=== PATIENT | male | born 1970 | race Caucasian/White ===

== ENCOUNTER 2018-09-08 11:22 | Emergency (ER) | payer MEDICAID ==
[~2018-09-08] VITALS: Ht 177.8 cm; Wt 126.6 kg
[~2018-09-08 11:22] MED LIST: COUMADIN5 MG PO; DEPAKOTE500 MG PO; HYDROCHLOROTHIA25 MG PO; IMDUR30 MG; KEPPRA1000 MG PO; LIPITOR20 MG PO; METOPROLOL SUCC50 MG PO; SYMBICORT 16010.2 GM
--- OUTSIDE RECORDS SUMMARY | 2018-09-08 11:25 | XMS REPORT | Clinical Summary ---
Author Author KASIA [facility]SpotsSh[facility] CenterHartman [facility] Address Unknown Phone Unavailable Care Team Providers Care Braid Maker Name Role Phone Sharpless PCP Allergies Comments Active Allergy Reactions Severity Noted Date Phenytoin Sodium Extended Rash Low 04/26/2014 Iodine And Iodide Hives, 04/26/2014 Containing Products Swelling Carbamazepine Rash Low 04/26/2014 Ondansetron Hcl (Pf) Hives 04/26/2014 Medications End Date Status Medication Sig Dispensed Refills Start Date Active levETIRAcetam (KEPPRA) Take 500 mg 0 500 MG tablet by mouth 3 (three) times daily. Active divalproex (DEPAKOTE) 500 Take 500 mg 0 MG EC tablet by mouth 2 (two) times daily. Active aspirin 325 MG tablet Take 325 mg 0 by mouth daily. Active atorvastatin (LIPITOR) 20 Take 20 mg by 0 MG tablet mouth daily. Active isosorbide mononitrate Take 30 mg by 0 (IMDUR) 30 MG 24 hr mouth daily. tablet Active promethazine (PHENERGAN) Take 25 mg by 0 25 MG tablet mouth every 8 (eight) hours as needed for Nausea. Active zolpidem (AMBIEN) 5 MG Take 5 mg by 0 tablet mouth every night as needed for Insomnia. Active nitroglycerin (NITROSTAT) Place 0.4 mg 0 0.4 MG SL tablet under the tongue every 5 (five) minutes as needed for Chest pain. Active rivaroxaban (XARELTO) 20 Take 1 tablet 30 tablet 0 05/02/201 mg Tab tablet (20 mg total) 4 by mouth daily with dinner. Active Problems Problem Noted Date Acute chest pain 06/18/2014 Cocaine use 06/18/2014 CAD (coronary artery disease) 04/27/2014 A-fib 04/27/2014 Hypertension 04/27/2014 COPD (chronic obstructive pulmonary disease) 04/27/2014 Encounters Care Team Description Date Type Specialty Ponce Sepulveda MD Gadicherla, Sonal Muralinath, MD Zindani, Shireen, MD Acute chest pain (Primary Dx); Coronary artery disease involving table mountain heart with angina pectoris, unspecified vessel or lesion type (HCC); Noncompliance; Atrial fibrillation, unspecified type (HCC); Subtherapeutic anticoagulation; Cigarette nicotine dependence with nicotine-induced disorder 04/05/2018 Emergency Cardiology - 04/06/2018 04/05/2018 Orders Only General Internal Medicine after 09/07/2017 Social History Date Tobacco Use Types Packs/Day Years Used Current Every Day Smoker 0.5 25 Smokeless Tobacco: Never Used Alcohol Use Drinks/Week oz/Week Comments No Sex Assigned at Date Recorded Not on file Industry Job Start Date Occupation Not on file Not on file Not on file Travel End Travel History Travel Start No recent travel history available. Last Filed Vital Signs Time Taken Vital Sign Reading 04/06/2018 4:09 AM CDT Blood Pressure 131/77 04/06/2018 4:09 AM CDT Pulse 60 04/06/2018 4:09 AM CDT Temperature 36.7 C (98 F) 04/06/2018 4:09 AM CDT Respiratory Rate 18 04/06/2018 4:09 AM CDT Oxygen Saturation 99% - Inhaled Oxygen - Concentration 04/06/2018 6:09 AM CDT Weight 123.5 kg (272 lb 3.2 oz) 04/05/2018 6:53 PM CDT Height 180.3 cm (5' 11") 04/06/2018 6:09 AM CDT Body Mass Index 37.96 Plan of Treatment Not on file Procedures Comments Procedure Name Priority Date/Time Associated Diagnosis RHYTHM STRIP - SCAN 04/07/2018 8:11 AM CDT ED ECG INTERPRETATION Routine 04/06/2018 8:14 AM CDT CBC W/PLT COUNT & AUTO Routine 04/06/2018 DIFFERENTIAL 2:11 AM CDT CBC W/PLT COUNT & AUTO Routine 04/06/2018 DIFFERENTIAL 2:11 AM CDT PHOSPHORUS Routine 04/06/2018 2:11 AM CDT MAGNESIUM Routine 04/06/2018 2:11 AM CDT BASIC METABOLIC PANEL (7) Routine 04/06/2018 2:11 AM CDT TROPONIN I Routine 04/06/2018 2:11 AM CDT TROPONIN I Routine 04/05/2018 8:03 PM CDT VENOUS DOPPLER LEGS Routine 04/05/2018 BILATERAL 6:30 PM CDT RAPID DRUG SCREEN, URINE Routine 04/05/2018 3:59 PM CDT URINALYSIS W/ MICROSCOPIC Routine 04/05/2018 3:59 PM CDT CBC W/PLT COUNT & AUTO STAT 04/05/2018 DIFFERENTIAL 1:50 PM CDT PROTHROMBIN TIME/INR STAT 04/05/2018 1:50 PM CDT D-DIMER STAT 04/05/2018 1:50 PM CDT CREATINE KINASE (CK), STAT 04/05/2018 TOTAL AND MB 1:50 PM CDT TROPONIN I STAT 04/05/2018 1:50 PM CDT CBC W/PLT COUNT & AUTO STAT 04/05/2018 DIFFERENTIAL 1:50 PM CDT BASIC METABOLIC PANEL (7) STAT 04/05/2018 1:50 PM CDT XR CHEST 1 VIEW STAT 04/05/2018 PORTABLE/BEDSIDE 1:30 PM CDT ECG 12-LEAD STAT 04/05/2018 1:03 PM CDT after 09/07/2017 Results * RHYTHM STRIP - SCAN (04/07/2018 8:11 AM CDT) Narrative Performed At * ED ECG Interpretation (04/06/2018 8:14 AM CDT) Narrative Performed At Ponce Sepulveda MD 04/06/20188:14 AM ECG/EKG Interpretation Date/Time: 04/05/2018 4:04 PM Performed by: PONCE SEPULVEDA Authorized by: MARLEN HANNA The ECG was interpreted by ED physician. The ECG is interpreted as sinus rhythm. Heart rate is 69 BPM. Patient tolerance: Patient tolerated the procedure well with no immediate complications Comments: SINUS RHYTHM ON MONITOR * CBC with platelet count + automated diff (04/06/2018 2:11 AM CDT) Only the most recent of 2 results within the time period is included. WBC 3.9 3.5 - 10.5 K/L [facility] RBC 4.83 4.63 - 6.08 M/L [facility] Hemoglobin 15.8 13.7 - 17.5 GM/DL [facility] Hematocrit 45.7 40.1 - 51.0 % [facility] MCV 94.6 (H) 79.0 - 92.2 fL [facility] MCH 32.7 (H) 25.7 - 32.2 pg [facility] MCHC 34.6 32.3 - 36.5 GM/DL [facility] RDW 13.1 11.6 - 14.4 % [facility] Platelets 153 150 - 450 K/CU MM [facility] MPV 9.9 9.4 - 12.4 fL [facility] nRBC 0 0 - 0 /100 WBC [facility] % Neutros 51 % [facility] % Lymphs 37 % [facility] % Monos 8 % [facility] % Eos 3 % [facility] % Baso 1 % [facility] # Neutros 1.98 1.78 - 5.38 K/L [facility] # Lymphs 1.46 1.32 - 3.57 K/L [facility] # Monos 0.33 0.30 - 0.82 K/L [facility] # Eos 0.11 0.04 - 0.54 K/L [facility] # Baso 0.02 0.01 - 0.08 K/L [facility] Immature 1 0 - 1 % [facility] Granulocytes-Relative [facility] Specimen Blood Performing Organization Address City/[facility] Cent[facility]ode Phone Number [address] [address] [facility] * Troponin I (04/06/2018 2:11 AM CDT) Only the most recent of 3 results within the time period is included. Troponin I <0.01 0.00 - 0.03 ng/mL [facility] Specimen Blood Narrative Performed At Troponin I (TnI) levels must be interpreted in the context of the presenting [facility] symptoms and the clinical findings. Elevated TnI levels indicate myocardial [facility] damage, but are not specific for ischemic heart disease. Elevated TnI levels are seen in patients with other cardiac conditions (including myocarditis and congestive heart failure), and slight TnI elevations occur in patients with other conditions, including sepsis, renal failure, acidosis, acute neurological disease, and persistent tachyarrhythmia. Performing Organization Address City/[facility] Cent[facility]ode Phone Number [address] [address] [facility] * Phosphorus (04/06/2018 2:11 AM CDT) Phosphorus 4.4 2.3 - 4.7 mg/dL [facility] Specimen Blood Performing Organization Address City/[facility] Cent[facility]ode Phone Number [address] [address] [facility] * Magnesium (04/06/2018 2:11 AM CDT) Magnesium 1.9 1.6 - 2.6 mg/dL [facility] Specimen Blood Performing Organization Address City/State/Zipcode Phone Number [facility] [address] [place], [place] [phone] [facility] * Basic metabolic panel (04/06/2018 2:11 AM CDT) Only the most recent of 2 results within the time period is included. Sodium 138 136 - 145 meq/L [facility] Potassium 4.2 3.5 - 5.1 meq/L [facility] Chloride 107 98 - 107 meq/L [facility] CO2 23 22 - 29 meq/L [facility] BUN 10 7 - 21 mg/dL [facility] Creatinine 0.87 0.57 - 1.25 mg/dL [facility] Glucose 98 70 - 105 mg/dL [facility] Calcium 9.2 8.4 - 10.2 mg/dL [facility] EGFR 93Comment: ESTIMATED GFR IS mL/min/1.73 sq m [facility] NOT ACCURATE CREATININE [facility] CLEARANCE IN PREDICTING GLOMERULAR FILTRATION RATE. ESTIMATED GFR IS NOT APPLICABLE FOR DIALYSIS PATIENTS. Specimen Blood Performing Organization Address City/[facility]/Zipcode Phone Number [facility] [address] [place] [address] [facility] * Venous doppler legs bilateral (04/05/2018 6:30 PM CDT) Ejection Fraction [facility] MKCKESSON CPACS Impressions Performed At Right Impression [facility] 1. There is no deep venous obstruction in the common femoral, profunda MKCKESSON CP[facility] femoral, femoral, popliteal, posterior tibial or peroneal veins. 2. There is no superficial venous obstruction in the great saphenous vein. Left Impression 1. There is no deep venous obstruction in the common femoral, profunda femoral, femoral, popliteal, posterior tibial or peroneal veins. 2. There is no superficial venous obstruction in the great saphenous vein. Conclusions Summary Venous duplex imaging and compression of the bilateral lower extremities were performed. The veins were adequately visualized. The bilateral venous systems were patent and compressible with no evidence of thrombus. The venous Doppler waveforms were phasic with respiration . Signature Velocities are measured in cm/s ; Diameters are measured in cm Narrative Performed At [facility] - Lower Extremities DVT Study [facility] Demographics [facility] Patient NameNARINDER SANCHEZDate of Study04/05/2018 Visit [id number] Male of Birth1970 Referring Micheline M Room [id number] Physician [place] Water Quality Tester Justin Cortez Interpreting Shaggy Pierce MD T Physician Procedure Type of Study: Veins: Lower Extremities DVT Study, VENOUS DOPPLER LEG, BILATERAL. Indications for Study:Chest pain . Patient Status:Routine. Study Location:Portable. Technical Quality:Adequate visualization. Risk Factors History of Disease + + + + !Diagnosis !Date !Comments ! + + + + !Stroke! ! ! + + + + !CHF ! ! ! + + + + !CHF ! ! ! + + + + !Other ! !Obesity! + + + + Procedure Note Interface, External Ris In - 04/07/2018 11:53 AM CDT [facility] - Lower Extremities DVT Study Demographics Patient Name NARINDER SANCHEZ Date of Study 04/05/2018 Age 48 Visit Number [id number] Gender Male Accession Number [id number] Date of 1970 Referring Micheline Zhou Room Number [id number] Physician [place] Water Quality Tester Justin Pierce MD RVT Physician Procedure Type of Study: Veins: Lower Extremities DVT Study, VENOUS DOPPLER LEG, BILATERAL. Indications for Study:Chest pain . Patient Status:Routine. Study Location:Portable. Technical Quality:Adequate visualization. Risk Factors History of Disease + + + + !Diagnosis !Date !Comments ! + + + + !Stroke ! ! ! + + + + !CHF ! ! ! + + + + !CHF ! ! ! + + + + !Other ! !Obesity ! + + + + Impressions Right Impression 1. There is no deep venous obstruction in the common femoral, profunda femoral, femoral, popliteal, posterior tibial or peroneal veins. 2. There is no superficial venous obstruction in the great saphenous vein. Left Impression 1. There is no deep venous obstruction in the common femoral, profunda femoral, femoral, popliteal, posterior tibial or peroneal veins. 2. There is no superficial venous obstruction in the great saphenous vein. Conclusions Summary Venous duplex imaging and compression of the bilateral lower extremities were performed. The veins were adequately visualized. The bilateral venous systems were patent and compressible with no evidence of thrombus. The venous Doppler waveforms were phasic with respiration . Signature Velocities are measured in cm/s ; Diameters are measured in cm Performing Organization Address City/State/Zipcode Phone Number [facility] * Rapid drug screen, urine (04/05/2018 3:59 PM CDT) Barbiturate Screen Negative Negative [facility] Benzodiazepine Screen Negative Negative [facility] Cocaine (Metab.) Screen Negative Negative [facility] Methadone Screen Negative Negative [facility] Opiate Screen Positive (A) Negative [facility] Cannabinoid Screen Positive (A) Negative [facility] Amph/Methamph Screen Negative Negative [facility] Phencyclidine Screen Negative Negative [facility] Oxycodone Screen Negative Negative [facility] Specimen Urine - Urine, Clean Catch Narrative Performed At [facility] Cocaine 300 ng/mL [facility] Kxtfbuzxbze07 ng/mL Iphlkcrswddhqc607 ng/mL Barbiturate 200 ng/mL Tezflsscylmjg31 ng/mL Bsdefl627 ng/mL Methadone 300 ng/mL Amphetamine/ 1000 ng/mL Methamphetamine Oxycodone 300 ng/mL This assay provides an unconfirmed qualitative test result for the clinical management of patients in emergency situations. Chain of custody not maintained. Some zgnz-vjt-pqxtjzk medications, as well as adulterants, may cause inaccurate results. Clinical correlation should be applied. A more comprehensive drug screen or confirmation of a detected drug may be performed upon request. Performing Organization Address City/[facility] Cent[facility]ode Phone Number [facility] [address] [place] [address] [facility] * Urinalysis w/ Microscopic (04/05/2018 3:59 PM CDT) Color, UA Yellow [facility] Clarity, UA Clear [facility] Specific [place], UA 1.014 1.001 - 1.035 [facility] pH, UA 7.0 5.0 - 8.0 [facility] Protein, UA Negative Negative [facility] Glucose, UA Negative Negative [facility] Ketones, UA Negative Negative [facility] Bilirubin, UA Negative Negative [facility] Blood, UA Negative Negative [facility] Nitrite, UA Negative Negative [facility] Leukocytes, UA Moderate (A) Negative [facility] Urobilinogen, UA 0.2 0.2 - 1.0 mg/dL [facility] RBC, UA <1 /HPF [facility] WBC, UA 23 /HPF [facility] Squam Epithel, UA <1 /HPF [facility] Specimen Source Urine, Clean Catch [facility] Specimen Urine - Urine, Clean Catch Performing Organization Address City/[facility]/Zipcode Phone Number [facility] [address] [place] [address] [facility] * PT/INR (04/05/2018 1:50 PM CDT) Protime 13.9 11.7 - 14.7 seconds [facility] INR 1.1 <=5.9 [facility] Specimen Blood - Line, Venous Narrative Performed At RECOMMENDED COUMADIN/WARFARIN INR THERAPY RANGES [facility] STANDARD DOSE: 2.0 - 3.0 Includes: PROPHYLAXIS for venous thrombosis, [facility] systemic embolization; TREATMENT for venous thrombosis and/or pulmonary embolus. HIGH RISK: Target INR is 2.5-3.5 for patients with mechanical heart valves. Performing Organization Address City/[facility] Cent[facility]ode Phone Number [address] [address] [facility] * D-dimer, quantitative (04/05/2018 1:50 PM CDT) D-Dimer, Quant 0.43 <0.50 MG/L FEU [facility] Specimen Blood - Line, Venous Narrative Performed At Intended Use: The D-Dimer Assay can be used to aid in the diagnosis of Deep Vein [facility] Thrombosis (DVT) and Pulmonary Embolism Disease (PED). [facility] In patients with low pre-test probability, various studies concerning STA Liatest D-dimer test have reported that with a cutoff value of 0.50 MG/L FEU, the Negative Predictive Value (NPV) regarding the exclusion of thrombosis is within 95-100% range. Performing Organization Address City/State/Zipcode Phone Number [place] [phone] [place], [place] [phone] [facility] * Creatine Kinase (CK), Total and MB (04/05/2018 1:50 PM CDT) Total CK 233 (H) 29 - 200 U/L [facility] CK-MB 1.9 0.0 - 6.6 ng/mL [facility] MB Relative Index 0.8 % [facility] Specimen Blood - Line, Venous Narrative Performed At CK-MB Reference Range: [facility] <6.7Normal [facility] 6.7-10.0Borderline >10.0 Abnormal Performing Organization Address City/State/Zipcode Phone Number [facility] [address] [place] [address] [facility] * XR chest 1 view portable / bedside (04/05/2018 1:30 PM CDT) Narrative Performed At FINAL REPORT [facility] RIS INDICATION: CHEST PAIN TECHNIQUE: Chest radiograph, single view, portable technique. FINDINGS / IMPRESSION: There is no evidence of pneumonia or pulmonary edema. Heart shadow is normal in size. Cardiac monitoring device again noted. No pleural effusion or pneumothorax demonstrated. Osseous structures unremarkable. Signed: Byron Spicer MD Report Verified Date/Time:04/05/2018 13:41:11 Reading Location: [facility] Diagnostic Imaging Reading Room - [place] [id number] Procedure Note Interface, External Ris In - 04/05/2018 2:22 PM CDT FINAL REPORT INDICATION: CHEST PAIN TECHNIQUE: Chest radiograph, single view, portable technique. FINDINGS / IMPRESSION: There is no evidence of pneumonia or pulmonary edema. Heart shadow is normal in size. Cardiac monitoring device again noted. No pleural effusion or pneumothorax demonstrated. Osseous structures unremarkable. Signed: Byron Spicer MD Report Verified Date/Time: 04/05/2018 13:41:11 Reading Location: [facility] Diagnostic Imaging Reading Room - [place] [id number] Performing Organization Address City/State/Zipcode Phone Number GE RIS * ECG 12 lead (04/05/2018 1:03 PM CDT) Narrative Performed At Ventricular Rate 98 BPM GE MUSE Atrial Rate 98 BPM P-R Interval 122 ms QRS Duration 82 ms Q-T Interval 338 ms QTC Calculation(Bazett) 431 ms P Flora 53 degrees R Flora 0 degrees T Flora 44 degrees Normal sinus rhythm Normal ECG When compared with ECG of 05-SEP-2017 03:01, No significant change was found Confirmed by MD CHOUDHARY JOSEPH P ([id number]) on 04/06/2018 6:14:23 AM Procedure Note Interface, External Ris In - 04/06/2018 6:14 AM CDT Ventricular Rate 98 BPM Atrial Rate 98 BPM P-R Interval 122 ms QRS Duration 82 ms Q-T Interval 338 ms QTC Calculation(Bazett) 431 ms P Flora 53 degrees R Flora 0 degrees T Flora 44 degrees Normal sinus rhythm Normal ECG When compared with ECG of 05-SEP-2017 03:01, No significant change was found Confirmed by MD CHODUHARY JOSEPH P ([id number]) on 04/06/2018 6:14:23 AM Performing Organization Address City/State/Zipcode Phone Number GE MUSE after 09/07/2017 Advance Directives For more information, please contact: [facility] [address] [place] [address] Date Inactivated Comments Code Status Date Activated 04/06/2018 9:18 AM Full Code 04/05/2018 3:06 PM This code status was determined by: Patient 06/18/2014 8:25 PM Full Code 06/18/2014 5:42 AM This code status was determined by: Patient 04/28/2014 3:31 PM Full Code 04/27/2014 4:45 AM This code status was determined by: Patient
--- OUTSIDE RECORDS SUMMARY | 2018-09-08 11:25 | XMS REPORT | Clinical Summary ---
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 Active omeprazole (PriLOSEC) 20 Take 20 mg by 0 MG capsule mouth 2 (two) times a day. Active nitroglycerin (NITROSTAT) Place 0.4 mg 0 0.4 MG SL tablet under the tongue every 5 (five) minutes as needed for chest pain. Active promethazine (PHENERGAN) Take 1 tablet 6 tablet 0 25 MG tablet (25 mg total) 8 by mouth every 6 (six) hours as needed for nausea or vomiting for up to 6 doses. 08/08/2018 Discontinued amLODIPine (NORVASC) 5 mg Take 5 mg by 0 tablet mouth daily. 08/08/2018 Discontinued levETIRAcetam (KEPPRA) Take 1,000 mg 0 1000 MG tablet by mouth 2 (two) times a day. 08/08/2018 Discontinued lisinopril Take 5 mg by 0 (PRINIVIL,ZESTRIL) 5 mg mouth daily. tablet 08/08/2018 Discontinued isosorbide mononitrate Take 30 mg by 0 (IMDUR) 30 MG 24 hr mouth daily. tablet 08/08/2018 Discontinued divalproex (DEPAKOTE) 500 Take 1,000 mg 0 MG EC tablet by mouth 2 (two) times a day. 08/08/2018 Discontinued furosemide (LASIX) 40 mg Take 40 mg by 0 tablet mouth daily. 08/08/2018 Discontinued metoprolol tartrate Take 100 mg 0 (LOPRESSOR) 100 mg tablet by mouth 2 (two) times a day. 08/08/2018 Discontinued aspirin (ECOTRIN) 81 MG Take 81 mg by 0 enteric coated tablet mouth daily. 08/08/2018 Discontinued warfarin (COUMADIN) 7.5 Take 7.5 mg 0 MG tablet by mouth daily. 09/09/2017 enoxaparin (LOVENOX) 80 Inject 1 mL 3 mL 0 mg/0.8 mL syringe (100 mg 8 total) under the skin daily for 3 days. 05/24/2018 Discontinued albuterol (PROAIR Inhale 1 puff 0 HFA,PROVENTIL every 6 (six) HFA,VENTOLIN HFA) 90 hours as mcg/actuation inhaler needed for wheezing. 10/18/2017 Discontinued beclomethasone (QVAR) 80 Inhale 1 puff 0 mcg/actuation inhaler 2 (two) times a day. 07/28/2018 Discontinued promethazine (PHENERGAN) Take 25 mg by 0 25 MG tablet mouth every 6 (six) hours as needed for nausea or vomiting. 05/29/2018 azithromycin (ZITHROMAX) Take 2 6 tablet 0 250 MG tablet tablets the 8 first day, then 1 tablet daily for 4 days. 07/15/2018 nicotine (NICODERM CQ) 21 Place 1 patch 30 patch 0 mg/24 hr on the skin 8 daily for 30 days. 08/22/2018 divalproex (DEPAKOTE) 500 Take 2 56 tablet 0 MG EC tablet tablets 8 (1,000 mg total) by mouth 2 (two) times a day for 14 days. 08/22/2018 lisinopril Take 1 tablet 14 tablet 0 (PRINIVIL,ZESTRIL) 5 mg (5 mg total) 8 tablet by mouth daily for 14 days. 08/22/2018 metoprolol tartrate Take 1 tablet 28 tablet 0 (LOPRESSOR) 100 mg tablet (100 mg 8 total) by mouth 2 (two) times a day for 14 days. 08/22/2018 warfarin (COUMADIN) 7.5 Take 1 tablet 14 tablet 0 MG tablet (7.5 mg 8 total) by mouth daily for 14 days. 08/22/2018 amLODIPine (NORVASC) 5 mg Take 1 tablet 14 tablet 0 tablet (5 mg total) 8 by mouth daily for 14 days. 08/22/2018 aspirin (ECOTRIN) 81 MG Take 1 tablet 14 tablet 0 enteric coated tablet (81 mg total) 8 by mouth daily for 14 days. 08/22/2018 furosemide (LASIX) 40 mg Take 1 tablet 14 tablet 0 tablet (40 mg total) 8 by mouth daily for 14 days. 08/22/2018 levETIRAcetam (KEPPRA) Take 1 tablet 28 tablet 0 1000 MG tablet (1,000 mg 8 total) by mouth 2 (two) times a day for 14 days. 08/22/2018 isosorbide mononitrate Take 1 tablet 14 tablet 0 (IMDUR) 30 MG 24 hr (30 mg total) 8 tablet by mouth daily for 14 days. Active Problems Problem Noted Date Pneumonia of left lower lobe due to infectious organism 05/24/2018 Transient cerebral ischemia 01/20/2018 Unstable angina 10/30/2017 Other chest pain 09/17/2017 Chest pain, rule out acute myocardial infarction 07/10/2017 Pulmonary infarction 02/21/2017 Tobacco dependence 02/21/2017 Marijuana use 02/21/2017 Chronic atrial fibrillation 02/21/2017 Pulmonary embolism without acute cor pulmonale 02/20/2017 CHF (congestive heart failure) Hypertension Resolved Problems Problem Noted Date Resolved Date Chest pain 06/13/2018 06/14/2018 Encounters Care Team Description Date Type Specialty Alvin Oliveira MD Chest pain, unspecified type (Primary Dx) 09/01/2018 Emergency Emergency Medicine 09/01/2018 Travel Kevin Haas Jr., MD Non compliance w medication regimen (Primary Dx); Seizure (HCC); Hypertension, unspecified type 08/08/2018 Emergency Emergency Medicine Alvin Oliveira MD Abdominal pain, vomiting, and diarrhea (Primary Dx) 07/28/2018 Emergency Emergency Medicine Ronald Junior DO Ventral hernia without obstruction or gangrene (Primary Dx) 07/20/2018 Emergency Emergency Medicine Claude Mcneill Jr., MD Abouelseoud, Tanseem Hamad Mohamed A, MD Chest pain, unspecified type (Primary Dx); Shortness of breath; Hypokalemia 06/13/2018 [facility] General Internal Medicine - Encounter 06/14/2018 Vazquez Diaz MD Cv left heart cath w lv gram cors [09623 (CPT)] 06/05/2018 Surgery Procedural Cardiology Lynn Mcintyre MD Li, Xiao Hong, MD Unstable angina (HCC) (Primary Dx); Essential hypertension 06/02/2018 [facility] Internal Medicine - Encounter 06/06/2018 Dc Jaquez MD Roberts, Matthew Thomas, DO Chest pain, unspecified type (Primary Dx) 06/01/2018 Emergency Emergency Medicine - 06/02/2018 Charlie Roldan MD Roberts, Matthew Thomas, DO Chest pain, unspecified type (Primary Dx); Shortness of breath; Coronary artery disease involving [place] heart with angina pectoris, unspecified vessel or lesion type (HCC); Pneumonia of left lower lobe due to infectious organism (HCC); Other pulmonary embolism without acute cor pulmonale, unspecified chronicity (HCC); Chest pain, rule out acute myocardial infarction 05/24/2018 Emergency General Internal Medicine - 05/25/2018 James Vasquez MD Atypical chest pain (Primary Dx) 03/27/2018 Emergency Emergency Medicine Corina Louis MD 03/23/2018 Emergency Emergency Medicine Alvin Oliveira MD Li, Xiao Hong, MD Chest pain, unspecified type (Primary Dx); Syncope, unspecified syncope type 01/28/2018 Emergency General Internal Medicine - 01/29/2018 Leland Leblanc DO Morris, David, DO Transient cerebral ischemia, unspecified type (Primary Dx); Chest pain, unspecified type; Essential hypertension; Noncompliance 01/20/2018 Emergency Emergency Medicine Alvin Oliveira MD Chest pain, unspecified type (Primary Dx); Leg edema, right 12/30/2017 Emergency Emergency Medicine - 12/31/2017 Tommy Burger MD Bavare, Arusha Amod, MD Chest pain, unspecified type (Primary Dx) 12/24/2017 Hospital General Internal Medicine - Encounter 12/25/2017 Christiana Espinoza MD Morris, David, DO Unstable angina (Primary Dx); Chest pain, rule out acute myocardial infarction 10/29/2017 Hospital Emergency Medicine - Encounter 10/30/2017 Christina Caicedo RN 10/20/2017 Documentation General Internal Medicine Alvin Oliveira MD Li, MD Kd Díaz Tanseem Hamad Mohamed A, MD Chest pain, unspecified type (Primary Dx) 10/18/2017 [facility] General Internal Medicine - Encounter 10/20/2017 Tim Jenkins MD Tang, Daming, MD Chest pain, unspecified type (Primary Dx); Metabolic acidosis; Tachycardia; Hypertensive emergency; Shortness of breath; Lactic acidosis; Tobacco abuse; Drug abuse 09/17/2017 Hospital Cardiology - Encounter 09/18/2017 after 09/07/2017 Social History Date Tobacco Use Types Packs/Day Years Used Current Every Day Smoker Cigarettes 0.5 37 Smokeless Tobacco: Never Used Tobacco Cessation: Ready to Quit: No; Counseling Given: No Alcohol Use Drinks/Week oz/Week Comments No Sex Assigned at Date Recorded Not on file Industry Job Start Date Occupation Not on file Not on file Not on file Travel End Travel History Travel Start No recent travel history available. Last Filed Vital Signs Time Taken Vital Sign Reading 09/01/2018 11:28 AM SCROLL SAW OPERATOR Blood Pressure 147/91 09/01/2018 11:28 AM SCROLL SAW OPERATOR Pulse 101 09/01/2018 11:28 AM SCROLL SAW OPERATOR Temperature 35.7 C (96.2 F) 09/01/2018 11:28 AM SCROLL SAW OPERATOR Respiratory Rate 23 09/01/2018 11:28 AM SCROLL SAW OPERATOR Oxygen Saturation 97% - Inhaled Oxygen - Concentration 09/01/2018 11:25 AM SCROLL SAW OPERATOR Weight 127 kg (279 lb) 09/01/2018 11:25 AM SCROLL SAW OPERATOR Height 180.3 cm (5' 11") 09/01/2018 11:25 AM SCROLL SAW OPERATOR Body Mass Index 38.91 Plan of Treatment Health Maintenance Due Date Last Done Comments INFLUENZA VACCINE 03/15/2018 Implants Device Identifier Shelf Expiration Date Model / Serial / Lot Implanted Type Area [facility] er 03/14/2020 [id number] / / [id number] Device Vasclr Clsr Baln Cath 10ml Cardiovasc N/A: N/A CARDINAL Lkng Syr 6fr 7fr [facility] [id number] Implants Implanted: 06/05/2018 (Quantity not on file) Loop Recorder Heart Stents X2 Loop Recorder Loop Recorder Loop Recorder-10/19/2015 Implanted: 10/19/2015 (Quantity not on file) Procedures Comments Procedure Name Priority Date/Time Associated Diagnosis ECG ED PRELIMINARY Routine 09/01/2018 INTERPRETATION 12:11 PM SCROLL SAW OPERATOR ECG 12-LEAD STAT 09/01/2018 11:39 AM SCROLL SAW OPERATOR ESTIMATED GFR STAT 09/01/2018 11:35 AM SCROLL SAW OPERATOR B NATRIURETIC PEPTIDE STAT 09/01/2018 11:35 AM SCROLL SAW OPERATOR TROPONIN STAT 09/01/2018 11:35 AM SCROLL SAW OPERATOR COMPREHENSIVE METABOLIC STAT 09/01/2018 PANEL 11:35 AM SCROLL SAW OPERATOR HC COMPLETE BLD COUNT STAT 09/01/2018 W/AUTO DIFF 11:35 AM SCROLL SAW OPERATOR CT HEAD WO CONTRAST STAT 08/08/2018 1:34 AM SCROLL SAW OPERATOR ESTIMATED GFR STAT 08/08/2018 1:24 AM SCROLL SAW OPERATOR PARTIAL THROMBOPLASTIN STAT 08/08/2018 TIME (PTT) 1:24 AM SCROLL SAW OPERATOR PROTHROMBIN TIME WITH INR STAT 08/08/2018 1:24 AM SCROLL SAW OPERATOR VALPROIC ACID LEVEL STAT 08/08/2018 1:24 AM SCROLL SAW OPERATOR TROPONIN Routine 08/08/2018 1:24 AM SCROLL SAW OPERATOR COMPREHENSIVE METABOLIC STAT 08/08/2018 PANEL 1:24 AM SCROLL SAW OPERATOR HC COMPLETE BLD COUNT STAT 08/08/2018 W/AUTO DIFF 1:24 AM SCROLL SAW OPERATOR ECG 12-LEAD STAT 08/08/2018 12:53 AM SCROLL SAW OPERATOR SMEAR REVIEW STAT 07/28/2018 2:50 PM SCROLL SAW OPERATOR TROPONIN STAT 07/28/2018 2:50 PM SCROLL SAW OPERATOR ESTIMATED GFR STAT 07/28/2018 2:50 PM SCROLL SAW OPERATOR LACTIC ACID LEVEL, SEPSIS STAT 07/28/2018 - NOW AND REPEAT 2X EVERY 2:50 PM SCROLL SAW OPERATOR 3 HOURS LIPASE LEVEL STAT 07/28/2018 2:50 PM SCROLL SAW OPERATOR COMPREHENSIVE METABOLIC STAT 07/28/2018 PANEL 2:50 PM SCROLL SAW OPERATOR HC COMPLETE BLD COUNT STAT 07/28/2018 W/AUTO DIFF 2:50 PM SCROLL SAW OPERATOR XR CHEST 1 VW PORTABLE STAT 07/28/2018 1:50 PM SCROLL SAW OPERATOR ECG 12-LEAD STAT 07/28/2018 1:25 PM SCROLL SAW OPERATOR ECG ED PRELIMINARY Routine 07/28/2018 INTERPRETATION 1:18 PM SCROLL SAW OPERATOR ESTIMATED GFR STAT 07/20/2018 1:18 PM SCROLL SAW OPERATOR COMPREHENSIVE METABOLIC STAT 07/20/2018 PANEL 1:18 PM SCROLL SAW OPERATOR HC COMPLETE BLD COUNT STAT 07/20/2018 W/AUTO DIFF 1:18 PM SCROLL SAW OPERATOR PARTIAL THROMBOPLASTIN STAT 07/20/2018 TIME (PTT) 1:18 PM SCROLL SAW OPERATOR PROTHROMBIN TIME WITH INR STAT 07/20/2018 1:18 PM SCROLL SAW OPER[address] CT ABDOMEN PELVIS WO STAT 07/20/2018 CONTRAST 12:27 PM SCROLL SAW OPERATOR ECG 12-LEAD Routine 06/14/2018 8:32 AM CDT TROPONIN Routine 06/14/2018 6:24 AM CDT LIPASE LEVEL Routine 06/14/2018 6:24 AM CDT HEMOGLOBIN A1C Routine 06/14/2018 6:24 AM CDT ESTIMATED GFR Routine 06/14/2018 6:24 AM CDT BASIC METABOLIC PANEL Routine 06/14/2018 6:24 AM CDT HC COMPLETE BLD COUNT Routine 06/14/2018 W/AUTO DIFF 6:24 AM CDT TROPONIN Timed 06/13/2018 4:[address] ANGIOGRAM CHEST W WO STAT 06/13/2018 CONTRAST AND ABDOMEN W WO 4:19 PM CDT CONTRAST XR CHEST 1 VW PORTABLE STAT 06/13/2018 1:53 PM CDT TROPONIN STAT 06/13/2018 12:05 PM CDT ESTIMATED GFR STAT 06/13/2018 12:05 PM CDT B NATRIURETIC PEPTIDE STAT 06/13/2018 12:05 PM CDT COMPREHENSIVE METABOLIC STAT 06/13/2018 PANEL 12:05 PM CDT PARTIAL THROMBOPLASTIN STAT 06/13/2018 TIME (PTT) 12:05 PM CDT PROTHROMBIN TIME WITH INR STAT 06/13/2018 12:05 PM CDT D-DIMER STAT 06/13/2018 12:05 PM CDT HC COMPLETE BLD COUNT STAT 06/13/2018 W/AUTO DIFF 12:05 PM CDT ECG ED PRELIMINARY Routine 06/13/2018 INTERPRETATION 10:52 AM CDT ECG 12-LEAD STAT 06/13/2018 10:24 AM CDT CBC HEMOGRAM Timed 06/06/2018 6:50 AM CDT PROTHROMBIN TIME WITH INR Routine 06/06/2018 6:50 AM CDT ANTI XA, UNFRACTIONATED Routine 06/06/2018 6:50 AM CDT ANTI XA, UNFRACTIONATED Timed 06/05/2018 8:11 PM CDT POC ACT Routine 06/05/2018 9:14 AM CDT CV LEFT HEART CATH LV Routine 06/05/2018 GRAM WITH CORS 9:12 AM CDT ACTIVATED CLOTTING TIME Routine 06/05/2018 9:07 AM CDT ANTI XA, UNFRACTIONATED Timed 06/05/2018 7:01 AM CDT CBC HEMOGRAM Timed 06/05/2018 7:01 AM CDT PROTHROMBIN TIME WITH INR Routine 06/05/2018 7:01 AM CDT ESTIMATED GFR STAT 06/05/2018 1:50 AM CDT BASIC METABOLIC PANEL STAT 06/05/2018 1:50 AM CDT MAGNESIUM LEVEL STAT 06/05/2018 1:50 AM CDT TROPONIN STAT 06/05/2018 1:50 AM CDT MYOGLOBIN STAT 06/05/2018 1:50 AM CDT ECG 12-LEAD STAT 06/05/2018 12:34 AM CDT ANTI XA, UNFRACTIONATED Timed 06/04/2018 11:08 PM CDT ANTI XA, UNFRACTIONATED Timed 06/04/2018 4:58 PM CDT PROTHROMBIN TIME WITH INR STAT 06/04/2018 7:28 AM CDT ANTI XA, UNFRACTIONATED Timed 06/04/2018 7:28 AM CDT CBC HEMOGRAM Timed 06/04/2018 7:28 AM CDT B NATRIURETIC PEPTIDE Timed 06/04/2018 7:28 AM CDT ANTI XA, UNFRACTIONATED Timed 06/04/2018 1:25 AM CDT ANTI XA, UNFRACTIONATED Timed 06/03/2018 5:19 PM CDT TROPONIN Timed 06/03/2018 5:19 PM CDT TROPONIN Timed 06/03/2018 12:24 PM CDT ECHOCARDIOGRAM 2D Routine 06/03/2018 COMPLETE W MMODE SPECTRAL 10:03 AM CDT COLOR DOPPLER (37634) MAGNESIUM LEVEL Routine 06/03/2018 9:15 AM CDT PARTIAL THROMBOPLASTIN STAT 06/03/2018 TIME (PTT) 9:15 AM CDT ANTI XA, UNFRACTIONATED STAT 06/03/2018 9:15 AM CDT TROPONIN STAT 06/03/2018 9:15 AM CDT ECG 12-LEAD STAT 06/03/2018 8:46 AM CDT ECG 12-LEAD Routine 06/03/2018 6:31 AM CDT ESTIMATED GFR Routine 06/03/2018 4:28 AM CDT KEPPRA (LEVETIRACETAM) Routine 06/03/2018 LEVEL 4:28 AM CDT VALPROIC ACID LEVEL Routine 06/03/2018 4:28 AM CDT BASIC METABOLIC PANEL Routine 06/03/2018 4:28 AM CDT PROTHROMBIN TIME WITH INR Routine 06/03/2018 4:28 AM CDT HC COMPLETE BLD COUNT Routine 06/03/2018 W/AUTO DIFF 4:28 AM CDT TROPONIN Timed 06/03/2018 4:28 AM CDT TROPONIN Timed 06/03/2018 12:13 AM CDT ECG 12-LEAD STAT 06/02/2018 8:29 PM CDT ESTIMATED GFR STAT 06/02/2018 8:28 PM CDT B NATRIURETIC PEPTIDE STAT 06/02/2018 8:28 PM CDT TROPONIN STAT 06/02/2018 8:28 PM CDT COMPREHENSIVE METABOLIC STAT 06/02/2018 PANEL 8:28 PM CDT HC COMPLETE BLD COUNT STAT 06/02/2018 W/AUTO DIFF 8:28 PM CDT ECG ED PRELIMINARY Routine 06/02/2018 INTERPRETATION 8:23 PM CDT TROPONIN Timed 06/01/2018 4:[address] ANGIOGRAM PE CHEST STAT 06/01/2018 1:32 PM CDT PARTIAL THROMBOPLASTIN STAT 06/01/2018 TIME (PTT) 11:15 AM CDT PROTHROMBIN TIME WITH INR STAT 06/01/2018 11:15 AM CDT ESTIMATED GFR STAT 06/01/2018 11:15 AM CDT B NATRIURETIC PEPTIDE STAT 06/01/2018 11:15 AM CDT TROPONIN STAT 06/01/2018 11:15 AM CDT LIPASE LEVEL STAT 06/01/2018 11:15 AM CDT HEPATIC FUNCTION PANEL STAT 06/01/2018 11:15 AM CDT BASIC METABOLIC PANEL STAT 06/01/2018 11:15 AM CDT HC COMPLETE BLD COUNT STAT 06/01/2018 W/AUTO DIFF 11:15 AM CDT XR CHEST 2 VW STAT 06/01/2018 10:06 AM CDT INSERT PERIPHERAL IV Routine 06/01/2018 9:53 AM CDT ECG ED PRELIMINARY Routine 06/01/2018 INTERPRETATION 9:53 AM CDT ECG 12-LEAD STAT 06/01/2018 9:41 AM CDT HIV 1, 2 ANTIBODY Routine 05/25/2018 5:02 AM CDT HEPATITIS ACUTE PANEL Routine 05/25/2018 5:02 AM CDT TROPONIN Routine 05/25/2018 5:02 AM CDT ESTIMATED GFR Routine 05/25/2018 5:02 AM CDT PROTHROMBIN TIME WITH INR Routine 05/25/2018 5:02 AM CDT BASIC METABOLIC PANEL Routine 05/25/2018 5:02 AM CDT HC COMPLETE BLD COUNT Routine 05/25/2018 W/AUTO DIFF 5:02 AM CDT LIPID PANEL Routine 05/25/2018 5:02 AM CDT ECG 12-LEAD Routine 05/25/2018 4:25 AM CDT US DUPLEX VENOUS LOWER Routine 05/24/2018 EXTREMITY BILATERAL 5:32 PM CDT LACTIC ACID LEVEL, SEPSIS Timed 05/24/2018 - NOW AND REPEAT 2X EVERY 3:40 PM CDT 3 HOURS NM LUNG VENTILATION STAT 05/24/2018 PERFUSION 1:18 PM CDT URINALYSIS SCREEN AND STAT 05/24/2018 MICROSCOPY, WITH REFLEX 11:51 AM CDT TO CULTURE URINE CULTURE STAT 05/24/2018 11:51 AM CDT CONSULT TO SEPSIS Routine 05/24/2018 Pneumonia of left lower RESPONSE TEAM 11:46 AM CDT lobe due to infectious organism (HCC) LACTIC ACID LEVEL, SEPSIS Timed 05/24/2018 - NOW AND REPEAT 2X EVERY 11:25 AM CDT 3 HOURS TROPONIN Timed 05/24/2018 11:25 AM CDT BLOOD CULTURE, AEROBIC & Routine 05/24/2018 ANAEROBIC 11:25 AM CDT BLOOD CULTURE, AEROBIC & Routine 05/24/2018 ANAEROBIC 11:18 AM CDT XR CHEST 2 VW STAT 05/24/2018 10:59 AM CDT VALPROIC ACID LEVEL Routine 05/24/2018 8:15 AM CDT LIPASE LEVEL STAT 05/24/2018 8:15 AM CDT ESTIMATED GFR STAT 05/24/2018 8:15 AM CDT CREATINE KINASE, TOTAL STAT 05/24/2018 (CPK) 8:15 AM CDT B NATRIURETIC PEPTIDE STAT 05/24/2018 8:15 AM CDT TROPONIN STAT 05/24/2018 8:15 AM CDT LACTIC ACID LEVEL, SEPSIS STAT 05/24/2018 - NOW AND REPEAT 2X EVERY 8:15 AM CDT 3 HOURS TYPE AND SCREEN Routine 05/24/2018 8:15 AM CDT COMPREHENSIVE METABOLIC STAT 05/24/2018 PANEL 8:15 AM CDT PARTIAL THROMBOPLASTIN STAT 05/24/2018 TIME (PTT) 8:15 AM CDT PROTHROMBIN TIME WITH INR STAT 05/24/2018 8:15 AM CDT HC COMPLETE BLD COUNT STAT 05/24/2018 W/AUTO DIFF 8:15 AM CDT ECG 12-LEAD STAT 05/24/2018 7:56 AM CDT INSERT PERIPHERAL IV Routine 05/24/2018 7:49 AM CDT ECG ED PRELIMINARY Routine 05/24/2018 INTERPRETATION 7:49 AM CDT XR CHEST 1 VW PORTABLE STAT 03/27/2018 1:31 PM CDT ECG 12-LEAD STAT 03/27/2018 1:08 PM CDT ECG 12-LEAD STAT 03/23/2018 12:26 PM CDT ECHOCARDIOGRAM 2D Routine 01/29/2018 COMPLETE W MMODE SPECTRAL 12:08 PM CDT COLOR DOPPLER (38184) TROPONIN STAT 01/29/2018 11:17 AM CDT ECG 12-LEAD Routine 01/29/2018 9:39 AM CDT PROTHROMBIN TIME WITH INR Routine 01/29/2018 5:48 AM CDT ZZESTIMATED GFR Routine 01/29/2018 5:48 AM CDT HC COMPLETE BLD COUNT Routine 01/29/2018 W/AUTO DIFF 5:48 AM CDT HEMOGLOBIN A1C Routine 01/29/2018 5:48 AM CDT LIPID PANEL Routine 01/29/2018 5:48 AM CDT BASIC METABOLIC PANEL Routine 01/29/2018 5:48 AM CDT URINE DRUGS OF ABUSE STAT 01/28/2018 SCREEN 7:45 PM CDT URINALYSIS SCREEN AND STAT 01/28/2018 MICROSCOPY, WITH REFLEX 7:45 PM CDT TO CULTURE URINE CULTURE STAT 01/28/2018 7:45 PM CDT TROPONIN Timed 01/28/2018 7:02 PM CDT VALPROIC ACID LEVEL Routine 01/28/2018 2:55 PM CDT ZZESTIMATED GFR STAT 01/28/2018 2:55 PM CDT B NATRIURETIC PEPTIDE STAT 01/28/2018 2:55 PM CDT TROPONIN STAT 01/28/2018 2:55 PM CDT COMPREHENSIVE METABOLIC STAT 01/28/2018 PANEL 2:55 PM CDT HC COMPLETE BLD COUNT STAT 01/28/2018 W/AUTO DIFF 2:[address] HEAD WO CONTRAST STAT 01/28/2018 2:16 PM CDT XR CHEST 1 VW PORTABLE STAT 01/28/2018 1:53 PM CDT ECG 12-LEAD STAT 01/28/2018 1:52 PM CDT ECG ED PRELIMINARY Routine 01/28/2018 INTERPRETATION 1:37 PM CDT URINALYSIS SCREEN AND Routine 01/20/2018 MICROSCOPY, WITH REFLEX 5:49 PM CDT TO CULTURE XR CHEST 1 VW PORTABLE STAT 01/20/2018 5:16 PM CDT MRA HEAD WO CONTRAST STAT 01/20/2018 4:30 PM CDT MRA CHEST WO CONTRAST STAT 01/20/2018 4:30 PM CDT ECG 12-LEAD STAT 01/20/2018 4:18 PM CDT MRI BRAIN WO CONTRAST STAT 01/20/2018 4:18 PM CDT TYPE AND SCREEN Routine 01/20/2018 2:53 PM CDT MA CRITICAL CARE, E/M Routine 01/20/2018 30-74 MINUTES 2:49 PM CDT SMEAR REVIEW STAT 01/20/2018 2:42 PM CDT ZZESTIMATED GFR STAT 01/20/2018 2:42 PM CDT B NATRIURETIC PEPTIDE STAT 01/20/2018 2:42 PM CDT TROPONIN STAT 01/20/2018 2:42 PM CDT COMPREHENSIVE METABOLIC STAT 01/20/2018 PANEL 2:42 PM CDT PARTIAL THROMBOPLASTIN STAT 01/20/2018 TIME (PTT) 2:42 PM CDT PROTHROMBIN TIME WITH INR STAT 01/20/2018 2:42 PM CDT HC COMPLETE BLD COUNT STAT 01/20/2018 W/AUTO DIFF 2:[address] STROKE BRAIN WO STAT 01/20/2018 CONTRAST 2:36 PM CDT US DUPLEX VENOUS LOWER STAT 12/30/2017 EXTREMITY RIGHT 10:19 PM CDT ZZESTIMATED GFR STAT 12/30/2017 7:57 PM CDT B NATRIURETIC PEPTIDE STAT 12/30/2017 7:57 PM CDT TROPONIN STAT 12/30/2017 7:57 PM CDT COMPREHENSIVE METABOLIC STAT 12/30/2017 PANEL 7:57 PM CDT HC COMPLETE BLD COUNT STAT 12/30/2017 W/AUTO DIFF 7:57 PM CDT XR CHEST 2 VW STAT 12/30/2017 7:50 PM CDT ECG ED PRELIMINARY Routine 12/30/2017 INTERPRETATION 7:31 PM CDT ECG 12-LEAD STAT 12/30/2017 7:27 PM CDT ANTI XA, UNFRACTIONATED Timed 12/25/2017 5:39 AM CDT KEPPRA (LEVETIRACETAM) Routine 12/25/2017 LEVEL 5:39 AM CDT ZZESTIMATED GFR Routine 12/25/2017 5:39 AM CDT BASIC METABOLIC PANEL Routine 12/25/2017 5:39 AM CDT HC COMPLETE BLD COUNT Routine 12/25/2017 W/AUTO DIFF 5:39 AM CDT TROPONIN Timed 12/25/2017 5:39 AM CDT ECG 12-LEAD Routine 12/25/2017 4:31 AM CDT ECG 12-LEAD Routine 12/25/2017 12:29 AM CDT PROTHROMBIN TIME WITH INR STAT 12/24/2017 9:59 PM CDT PARTIAL THROMBOPLASTIN STAT 12/24/2017 TIME (PTT) 9:59 PM CDT ANTI XA, UNFRACTIONATED STAT 12/24/2017 9:59 PM CDT NM LUNG VENTILATION STAT 12/24/2017 PERFUSION 7:05 PM CDT ECG 12-LEAD STAT 12/24/2017 5:18 PM CDT PROTHROMBIN TIME WITH INR Timed 12/24/2017 3:35 PM CDT ZZESTIMATED GFR STAT 12/24/2017 3:35 PM CDT B NATRIURETIC PEPTIDE STAT 12/24/2017 3:35 PM CDT TROPONIN STAT 12/24/2017 3:35 PM CDT COMPREHENSIVE METABOLIC STAT 12/24/2017 PANEL 3:35 PM CDT HC COMPLETE BLD COUNT STAT 12/24/2017 W/AUTO DIFF 3:35 PM CDT XR CHEST 1 VW STAT 12/24/2017 3:28 PM CDT ECG ED PRELIMINARY Routine 12/24/2017 INTERPRETATION 3:26 PM CDT ECG 12-LEAD STAT 12/24/2017 2:55 PM CDT TROPONIN Timed 10/30/2017 4:45 AM CDT ZZESTIMATED GFR Timed 10/30/2017 4:45 AM CDT COMPREHENSIVE METABOLIC Timed 10/30/2017 PANEL 4:45 AM CDT CBC WITH PLATELET AND Timed 10/30/2017 DIFFERENTIAL 4:45 AM CDT ECG 12-LEAD Routine 10/30/2017 4:18 AM CDT ANTI XA, UNFRACTIONATED STAT 10/30/2017 12:14 AM CDT PARTIAL THROMBOPLASTIN STAT 10/30/2017 TIME (PTT) 12:14 AM CDT ECG 12-LEAD STAT 10/29/2017 11:05 PM CDT ZZESTIMATED GFR Routine 10/29/2017 9:59 PM CDT B NATRIURETIC PEPTIDE Routine 10/29/2017 9:59 PM CDT LIPASE LEVEL Routine 10/29/2017 9:59 PM CDT TROPONIN Routine 10/29/2017 9:59 PM CDT COMPREHENSIVE METABOLIC Routine 10/29/2017 PANEL 9:59 PM CDT PROTHROMBIN TIME WITH INR Routine 10/29/2017 9:59 PM CDT HC COMPLETE BLD COUNT Routine 10/29/2017 W/AUTO DIFF 9:59 PM CDT XR CHEST 1 VW PORTABLE STAT 10/29/2017 9:56 PM CDT INSERT PERIPHERAL IV Routine 10/29/2017 9:40 PM CDT ECG ED PRELIMINARY Routine 10/29/2017 INTERPRETATION 9:40 PM CDT ECG ED PRELIMINARY Routine 10/29/2017 INTERPRETATION 9:40 PM CDT MA CRITICAL CARE, E/M Routine 10/29/2017 30-74 MINUTES 9:40 PM CDT ECG 12-LEAD STAT 10/29/2017 9:38 PM CDT ZZESTIMATED GFR Routine 10/20/2017 4:58 AM SCROLL SAW OPERATOR COMPREHENSIVE METABOLIC Routine 10/20/2017 PANEL 4:58 AM SCROLL SAW OPERATOR HC COMPLETE BLD COUNT Routine 10/20/2017 W/AUTO DIFF 4:58 AM SCROLL SAW OPERATOR PROTHROMBIN TIME WITH INR Routine 10/20/2017 4:58 AM SCROLL SAW OPERATOR MRI BRAIN WO CONTRAST STAT 10/19/2017 1:58 PM SCROLL SAW OPERATOR NM MYOCARDIAL PERFUSION Routine 10/19/2017 REST STRESS 2 DAY 1:15 PM SCROLL SAW OPERATOR CV STRESS TEST NUCLEAR Routine 10/19/2017 CARDIO 1:15 PM SCROLL SAW OPERATOR PROTHROMBIN TIME WITH INR Routine 10/19/2017 4:35 AM SCROLL SAW OPERATOR ZZESTIMATED GFR Routine 10/19/2017 4:35 AM SCROLL SAW OPERATOR BASIC METABOLIC PANEL Routine 10/19/2017 4:35 AM SCROLL SAW OPERATOR HC COMPLETE BLD COUNT Routine 10/19/2017 W/AUTO DIFF 4:35 AM SCROLL SAW OPERATOR HEMOGLOBIN A1C Routine 10/19/2017 4:35 AM SCROLL SAW OPERATOR LIPID PANEL Routine 10/19/2017 4:35 AM SCROLL SAW OPERATOR CT ANGIOGRAM PE CHEST STAT 10/19/2017 3:31 AM SCROLL SAW OPERATOR VALPROIC ACID LEVEL Routine 10/18/2017 12:15 PM SCROLL SAW OPERATOR TROPONIN Timed 10/18/2017 12:15 PM SCROLL SAW OPERATOR XR CHEST 1 VW PORTABLE STAT 10/18/2017 10:34 AM SCROLL SAW OPERATOR PARTIAL THROMBOPLASTIN STAT 10/18/2017 TIME (PTT) 10:15 AM SCROLL SAW OPERATOR PROTHROMBIN TIME WITH INR STAT 10/18/2017 10:15 AM SCROLL SAW OPERATOR ZZESTIMATED GFR STAT 10/18/2017 10:15 AM SCROLL SAW OPERATOR B NATRIURETIC PEPTIDE STAT 10/18/2017 10:15 AM SCROLL SAW OPERATOR TROPONIN STAT 10/18/2017 10:15 AM SCROLL SAW OPERATOR COMPREHENSIVE METABOLIC STAT 10/18/2017 PANEL 10:15 AM SCROLL SAW OPERATOR HC COMPLETE BLD COUNT STAT 10/18/2017 W/AUTO DIFF 10:15 AM SCROLL SAW OPERATOR ECG 12-LEAD STAT 10/18/2017 10:10 AM SCROLL SAW OPERATOR ECG ED PRELIMINARY Routine 10/18/2017 INTERPRETATION 10:10 AM SCROLL SAW OPERATOR BASIC METABOLIC PANEL Routine 09/18/2017 4:51 AM SCROLL SAW OPERATOR ZZESTIMATED GFR Routine 09/18/2017 4:51 AM SCROLL SAW OPERATOR ZZESTIMATED GFR Routine 09/18/2017 12:37 AM SCROLL SAW OPERATOR BASIC METABOLIC PANEL Routine 09/18/2017 12:37 AM SCROLL SAW OPERATOR PROTHROMBIN TIME WITH INR STAT 09/18/2017 12:35 AM SCROLL SAW OPERATOR HC COMPLETE BLD COUNT Routine 09/18/2017 W/AUTO DIFF 12:35 AM SCROLL SAW OPERATOR RESPIRATORY PATHOGEN Routine 09/17/2017 PANEL 10:05 PM SCROLL SAW OPERATOR URINALYSIS SCREEN AND Routine 09/17/2017 MICROSCOPY, WITH REFLEX 9:30 PM SCROLL SAW OPERATOR TO CULTURE URINE CULTURE Routine 09/17/2017 9:30 PM SCROLL SAW OPERATOR TROPONIN Timed 09/17/2017 8:20 PM SCROLL SAW OPERATOR BLOOD CULTURE, AEROBIC & Routine 09/17/2017 ANAEROBIC 6:45 PM SCROLL SAW OPERATOR XR CHEST 1 VW PORTABLE STAT 09/17/2017 6:13 PM SCROLL SAW OPERATOR ECG ED PRELIMINARY Routine 09/17/2017 INTERPRETATION 5:55 PM SCROLL SAW OPERATOR LACTIC ACID LEVEL STAT 09/17/2017 5:05 PM SCROLL SAW OPERATOR ZZESTIMATED GFR STAT 09/17/2017 5:05 PM SCROLL SAW OPERATOR B NATRIURETIC PEPTIDE STAT 09/17/2017 5:05 PM SCROLL SAW OPERATOR TROPONIN STAT 09/17/2017 5:05 PM SCROLL SAW OPERATOR COMPREHENSIVE METABOLIC STAT 09/17/2017 PANEL 5:05 PM SCROLL SAW OPERATOR HC COMPLETE BLD COUNT STAT 09/17/2017 W/AUTO DIFF 5:05 PM SCROLL SAW OPERATOR ECG 12-LEAD STAT 09/17/2017 4:25 PM SCROLL SAW OPERATOR after 09/07/2017 Results * ECG ED Preliminary Interpretation - Not an Order (09/01/2018 12:11 PM SCROLL SAW OPERATOR) Only the most recent of 13 results within the time period is included. Narrative Performed At Alvin Oliveira MD 09/06/2018 10:26 AM ECG ED Preliminary Interpretation - Not an Order Performed by: Alvin Oliveira MD Authorized by: Alvin Oliveira MD Rate: ECG rate:94 ECG rate assessment: normal Rhythm: Rhythm: sinus rhythm Ectopy: Ectopy: none QRS: QRS axis:Normal Conduction: Conduction: normal ST segments: ST segments:Normal T waves: T waves: normal * ECG 12 lead (09/01/2018 11:39 AM SCROLL SAW OPERATOR) Only the most recent of 27 results within the time period is included. Ventricular rate 94 [facility] Atrial rate 94 [facility] MA interval 132 [facility] QRSD interval 88 [facility] QT interval 336 [facility] QTC interval 420 [facility] P axis 1 62 [facility] QRS axis 1 31 [facility] T wave axis 5 [facility] EKG impression Normal sinus [facility] rhythm-Nonspecific T wave abnormality-Abnormal ECG-In automated comparison with ECG of 08-AUG-2018 00:53,-Non-specific change in ST segment in Inferior leads- Narrative Performed At Performing Organization Address City/State/Zipcode Phone Number [facility] M[facility] [address] [place] [address] * Estimated GFR (09/01/2018 11:35 AM SCROLL SAW OPERATOR) Only the most recent of 12 results within the time period is included. Estimated GFR >=90 mL/min/1.73 m2 AQUINO CONFU[facility]ANISM Comment: [facility] CatergoryUnitsInte rpretation G1 >=90 Normal or high G2 60-89Mildly decreased [id number] Mildly to moderately decreased [id number] Moderately to severely decreased G4 15-29Severely decreased G5 <15Kidney failure The eGFR was calculated using the Chronic Kidney Disease Epidemiology Collaboration (CKD-EPI) equation. Interpretation is based on recommendations of the National Kidney Foundation-Kidney Disease Outcomes Quality Initiative (NKF-KDOQI) published in 2014. Specimen Plasma specimen Performing Organization Address [facility] Phone Number [facility] [address] [place] [address] PATHOLOGY AND GENOMIC MEDICINE [address] * Troponin (09/01/2018 11:35 AM SCROLL SAW OPERATOR) Only the most recent of 31 results within the time period is included. Troponin <0.30 0.00 - 0.30 ng/mL [facility] [employer] Comment: [facility] 0.11 - 1.49 ng/mlMay indicate increased risk of acute coronary syndrome. >=1.5 ng/ml Consistent with acute myocardial infarction. The diagnostic value of a single normal or non-diagnostic result is questionable.Serial samples at 2-6 hour intervals are required to rule out acute myocardial injury. Specimen Plasma specimen Performing Organization Address City/[facility]/Zipcode Phone Number [facility] [address] [place] [address] PATHOLOGY AND GENOMIC MEDICINE [place] [address] [place] [address] [facility] * CBC with platelet and differential (09/01/2018 11:35 AM SCROLL SAW OPERATOR) Only the most recent of 24 results within the time period is included. WBC 3.9 (L) 4.2 - 11.0 k/uL [facility] RBC 5.02 4.04 - 5.86 m/uL [facility] HGB 16.5 13.0 - 17.3 g/dL [facility] HCT 47.1 (H) 34.0 - 45.0 % [facility] MCV 93.8 80.0 - 98.0 fL [facility] MCH 32.9 27.0 - 34.0 pg [facility] MCHC 35.0 31.5 - 36.5 g/dL [facility] RDW - SD 43.8 37.0 - 51.0 fL [facility] MPV 10.4 7.4 - 10.4 fL [facility] Platelet count 178 150 - 400 k/uL [facility] Nucleated RBC 0.00 /100 WBC [facility] Neutrophils 58.3 36.0 - 66.0 % [facility] Lymphocytes 31.4 24.0 - 44.0 % [facility] Monocytes 7.2 (H) 0.0 - 6.0 % [facility] Eosinophils 2.3 0.0 - 6.0 % [facility] Basophils 0.5 0.0 - 1.2 % [facility] Immature granulocytes 0.3 0.0 - 1.0 % [facility] Specimen Blood Performing Organization Address City/State/Zipcode Phone Number [facility] [place] [address] PATHOLOGY AND GENOMIC MEDICINE [place] [address] [place], [place] [id number] [place] [address] * B natriuretic peptide (09/01/2018 11:35 AM SCROLL SAW OPERATOR) Only the most recent of 13 results within the time period is included. BNP 34 0 - 100 pg/mL [facility] Specimen Blood Performing Organization Address City/State/Zipcode Phone Number [facility] [address] [place] [address] PATHOLOGY AND GENOMIC MEDICINE [facility] [place] [address] * Comprehensive metabolic panel (09/01/2018 11:35 AM SCROLL SAW OPERATOR) Only the most recent of 16 results within the time period is included. Sodium 140 135 - 150 mEq/L [facility] Potassium 4.4 3.5 - 5.0 mEq/L [facility] Chloride 105 98 - 112 mEq/L [facility] CO2 22 (L) 24 - 31 mmol/L [facility] Anion gap 13@ANIO 7 - 15 mEq/L [facility] BUN 7 7 - 18 mg/dL [facility] Creatinine 0.90 0.70 - 1.20 mg/dL [facility] Glucose 107 (H) 65 - 100 mg/dL [facility] Calcium 9.7 8.3 - 10.2 mg/dL [facility] Protein 6.8 6.3 - 8.3 g/dL [facility] Albumin 4.0 3.5 - 5.0 g/dL [facility] A/G ratio 1.4 0.7 - 3.8 [facility] Alkaline phosphatase 55 0 - 129 U/L [facility] AST 37 10 - 50 U/L [facility] ALT 54 (H) 5 - 50 U/L [facility] Total bilirubin 0.5 0.2 - 1.2 mg/dL [facility] Specimen Plasma specimen Performing Organization Address City/[facility]/Zipcode Phone Number [facility] [address] [place] [address] PATHOLOGY AND GENOMIC MEDICINE [facility] AncelmoEmily [place] [address] * CT Head Wo Contrast (08/08/2018 1:34 AM SCROLL SAW OPERATOR) Only the most recent of 2 results within the time period is included. Narrative Performed At EXAM: CT HEAD WO CONTRAST HM [facility] CLINICAL HISTORY: seizuresyncopehtn TECHNIQUE: Noncontrast enhanced images of the brain were obtained from the skull base to the vertex. Both soft tissue and bone reconstruction algorithms were performed. CT scans are performed using radiation dose reduction techniques (iterative reconstruction and/or automated exposure control). Technical factors are evaluated and adjusted to ensure appropriate moderation of exposure. Automated dose management technology is applied to adjust radiation exposure while achieving a diagnostic quality image. COMPARISON:None. FINDINGS: The crowley-white matter differentiation is preserved and without evidence of acute territorial infarction. There is subtle scattered subcortical and deep white matter hypoattenuation, likely reflective of chronic small vessel ischemic changes. There is no evidence for acute intracranial hemorrhage, mass, mass effect, hydrocephalus, or extra-axial fluid collection. Orbits are unremarkable.Paranasal sinuses demonstrate scattered mild to moderate mucosal thickening, worse within the right maxillary sinus and left maxillary sinus inferiorly. Mastoid air cells are normally pneumatized.Osseous structures are intact. IMPRESSION: Minimal involutional changes as detailed with no CT evidence for acute intracranial abnormality. [id number] Procedure Note Interface, Radiology Results Incoming - 08/08/2018 1:39 AM SCROLL SAW OPERATOR EXAM: CT HEAD WO CONTRAST CLINICAL HISTORY: seizure syncope htn TECHNIQUE: Noncontrast enhanced images of the brain were obtained from the skull base to the vertex. Both soft tissue and bone reconstruction algorithms were performed. CT scans are performed using radiation dose reduction techniques (iterative reconstruction and/or automated exposure control). Technical factors are evaluated and adjusted to ensure appropriate moderation of exposure. Automated dose management technology is applied to adjust radiation exposure while achieving a diagnostic quality image. COMPARISON: None. FINDINGS: The crowley-white matter differentiation is preserved and without evidence of acute territorial infarction. There is subtle scattered subcortical and deep white matter hypoattenuation, likely reflective of chronic small vessel ischemic changes. There is no evidence for acute intracranial hemorrhage, mass, mass effect, hydrocephalus, or extra-axial fluid collection. Orbits are unremarkable. Paranasal sinuses demonstrate scattered mild to moderate mucosal thickening, worse within the right maxillary sinus and left maxillary sinus inferiorly. Mastoid air cells are normally pneumatized. Osseous structures are intact. IMPRESSION: Minimal involutional changes as detailed with no CT evidence for acute intracranial abnormality. [id number] Performing Organization Address City/State/Zipcode Phone Number [facility] [address] [place] [address] * Partial thromboplastin time, activated (08/08/2018 1:24 AM SCROLL SAW OPERATOR) Only the most recent of 10 results within the time period is included. PTT 30.1 23.0 - 36.0 sec MILES RODRIGUEZ Comment: [facility] PTT therapeutic range for unfractionated heparin is 61.0-112.0 seconds which corresponds to Anti-Xa 0.3-0.7 U/ml. Note:Change in Panic Value The PTT Panic Value is changing from 110 sec. to 100 sec. due to new instrumentation and reagents. Correlation studies have been performed to validate this result. Specimen Blood Performing Organization Address [facility] [place] [address] PATHOLOGY AND [facility] MEDICINE [address] * Prothrombin time with INR (08/08/2018 1:24 AM SCROLL SAW OPERATOR) Only the most recent of 19 results within the time period is included. Prothrombin time 13.6 11.5 - 14.5 sec MILES RODRIGUEZ [facility] INR 1.07 MILES RODRIGUEZ Comment: [facility] For patients on anticoagulant therapy, reference ranges below: Indication: INR Value Treatment of Venous Thrombosis, 2.0-3.0 pulmonary emboli, or prophylaxis of a venous thrombosis, or systemic emboli. High dose, high risk patients 3.0-4.5 with mechanical valves. NOTE:INR values over 3.0 are sometimes associated with gastrointestinal hemorrhage, especially values over 4.0. Specimen Blood Performing Organization Address City/State/Zipcode Phone Number [facility] OF [address] [place] [address] PATHOLOGY AND GENOMIC MEDICINE [address] * Valproic acid level (08/08/2018 1:24 AM SCROLL SAW OPERATOR) Only the most recent of 5 results within the time period is included. Valproic acid <3.1 (L) 50.0 - 100.0 ug/mL MILES RODRIGUEZ Comment: [facility] Therapeutic Range: 50 - 100 ug/mL Specimen Blood Performing Organization Address City/[facility]/Zipcode Phone Number [facility] [address] [place] [id number] PATHOLOGY AND GENOMIC MEDICINE [facility] [address] * Smear review (07/28/2018 2:50 PM SCROLL SAW OPERATOR) Only the most recent of 2 results within the time period is included. Platelet slide review Sabina adequate [facility] Anisocytosis 1+ [facility] Performing Organization Address [facility] Phone Number [facility] [address] [place] [address] PATHOLOGY AND GENOMIC MEDICINE [place] [address] * Lactic acid level, SEPSIS - Now and repeat 2x every 3 hours (07/28/2018 2:50 PM SCROLL SAW OPERATOR) Only the most recent of 4 results within the time period is included. Lactic acid 1.3 0.5 - 2.2 mmol/L [facility] Specimen Blood Performing Organization Address [facility]/[place] Phone Number [facility] [address] [place] [address] PATHOLOGY AND GENOMIC MEDICINE [place] [address] * Lipase level (07/28/2018 2:50 PM SCROLL SAW OPERATOR) Only the most recent of 5 results within the time period is included. Lipase 21 13 - 60 U/L [facility] Specimen Plasma specimen Performing Organization Address City/[facility]/Zipcode Phone Number [facility] [address] [place] [address] PATHOLOGY AND GENOMIC MEDICINE [place] [address] * XR Chest 1 Vw Portable (07/28/2018 1:50 PM SCROLL SAW OPERATOR) Only the most recent of 8 results within the time period is included. Narrative Performed At EXAMINATION:XR CHEST 1 VW PORTABLE [facility] CLINICAL HISTORY:pain COMPARISON:June 13, 2018 chest IMPRESSION: No acute abnormality single view chest Minimal linear atelectasis versus scar left base. The lungs are otherwise clear. The heart is not enlarged. Cardiac monitoring device as before The bony structures are within normal limits. [id number] Procedure Note Hm Interface, Radiology Results Incoming - 07/28/2018 2:01 PM SCROLL SAW OPERATOR EXAMINATION: XR CHEST 1 VW PORTABLE CLINICAL HISTORY: pain COMPARISON: June 13, 2018 chest IMPRESSION: No acute abnormality single view chest Minimal linear atelectasis versus scar left base. The lungs are otherwise clear. The heart is not enlarged. Cardiac monitoring device as before The bony structures are within normal limits. [id number] Performing Organization Address City/State/Zipcode Phone Number [facility] [address] [place] [address] * CT Abdomen Pelvis Wo Contrast (07/20/2018 12:27 PM SCROLL SAW OPERATOR) Narrative Performed At EXAMINATION:CT ABDOMEN PELVIS WO CONTRAST [facility] CLINICAL HISTORY:Abd painunspecified, hernia COMPARISON:None. TECHNIQUE: CT of the abdomen and pelvis without intravenous contrast. Absence of contrast decreases sensitivity for detection of focal lesions and vascular pathology. All CT scan performed using radiation dose reduction techniques. Technical factors are evaluated and adjusted to ensure appropriate moderation of exposure. Automated dose management technology is applied to adjust the radiation dose to minimize expose whileachieving a diagnostic quality image. FINDINGS: LUNG BASES:The lung bases are unremarkable. HEPATOBILIARY: Marked fatty infiltration of the liver is seen.Limited nonenhanced evaluation of the liver is otherwise unremarkable. No biliary dilatation is seen. GALLBLADDER: An approximately 1.8 cm gallstone is seen. Partial contraction of the gallbladder is noted. No wall thickening or pericholecystic fluid collection is identified. SPLEEN: The spleen is unremarkable. PANCREAS:Limited nonenhanced evaluation of the pancreas is unremarkable. No pancreatic duct dilatation is seen. ADRENALS: The adrenal glands are unremarkable. KIDNEYS: A horseshoe kidney is noted. Limited nonenhanced evaluation of the kidneys is otherwise unremarkable. No renal or ureteral calculus is seen. There is no evidence of hydronephrosis. PERITONEUM/RETROPERITONEUM:No mesenteric or retroperitoneal pathologic lymphadenopathy seen. There is no evidence of free air or free fluid.. GI TRACT:The small bowel is normal in caliber. The colon is unremarkable. No wall thickening is identified. There is no evidence of inflammatory process. The appendix is normal in appearance. The stomach is unremarkable. FLUID: None. VASCULATURE: Scattered atherosclerotic disease of the abdominal aorta is seen. BONES: An approximately 6.1 mm anterolisthesis of L4 on L5 is seen. Probable chronic bilateral L4 pars defect is present.. ABDOMINAL WALL: Probable postsurgical change of ventral hernia repair with mesh is noted. No evidence of recurrent or residual ventral hernia.. PELVIS: BLADDER: The urinary bladder is unremarkable. GENITALIA: Unremarkable. IMPRESSION: Unremarkable CT exam with no acute findings. No CT evidence of renal calculus or obstructive uropathy. Horseshoe kidney is noted. Marked hepatitic steatosis. No CT evidence of appendicitis, colitis or bowel obstruction. Incidental note of grade 1 anterolisthesis of L4 on L5 secondary to chronic bilateral spondylolysis. [id number] Procedure Note Hm Interface, Radiology Results - 07/20/2018 12:36 PM SCROLL SAW OPERATOR EXAMINATION: CT ABDOMEN PELVIS WO CONTRAST CLINICAL HISTORY: Abd pain unspecified, hernia COMPARISON: None. TECHNIQUE: CT of the abdomen and pelvis without intravenous contrast. Absence of contrast decreases sensitivity for detection of focal lesions and vascular pathology. All CT scan performed using radiation dose reduction techniques. Technical factors are evaluated and adjusted to ensure appropriate moderation of exposure. Automated dose management technology is applied to adjust the radiation dose to minimize expose while achieving a diagnostic quality image. FINDINGS: LUNG BASES: The lung bases are unremarkable. HEPATOBILIARY: Marked fatty infiltration of the liver is seen. Limited nonenhanced evaluation of the liver is otherwise unremarkable. No biliary dilatation is seen. GALLBLADDER: An approximately 1.8 cm gallstone is seen. Partial contraction of the gallbladder is noted. No wall thickening or pericholecystic fluid collection is identified. SPLEEN: The spleen is unremarkable. PANCREAS: Limited nonenhanced evaluation of the pancreas is unremarkable. No pancreatic duct dilatation is seen. ADRENALS: The adrenal glands are unremarkable. KIDNEYS: A horseshoe kidney is noted. Limited nonenhanced evaluation of the kidneys is otherwise unremarkable. No renal or ureteral calculus is seen. There is no evidence of hydronephrosis. PERITONEUM/RETROPERITONEUM: No mesenteric or retroperitoneal pathologic lymphadenopathy seen. There is no evidence of free air or free fluid.. GI TRACT: The small bowel is normal in caliber. The colon is unremarkable. No wall thickening is identified. There is no evidence of inflammatory process. The appendix is normal in appearance. The stomach is unremarkable. FLUID: None. VASCULATURE: Scattered atherosclerotic disease of the abdominal aorta is seen. BONES: An approximately 6.1 mm anterolisthesis of L4 on L5 is seen. Probable chronic bilateral L4 pars defect is present.. ABDOMINAL WALL: Probable postsurgical change of ventral hernia repair with mesh is noted. No evidence of recurrent or residual ventral hernia.. PELVIS: BLADDER: The urinary bladder is unremarkable. GENITALIA: Unremarkable. IMPRESSION: Unremarkable CT exam with no acute findings. No CT evidence of renal calculus or obstructive uropathy. Horseshoe kidney is noted. Marked hepatitic steatosis. No CT evidence of appendicitis, colitis or bowel obstruction. Incidental note of grade 1 anterolisthesis of L4 on L5 secondary to chronic bilateral spondylolysis. [id number]-[id number] Performing Organization Address City/[facility]/Zipcode Phone Number [facility] [address] [place] [address] * Hemoglobin A1c (06/14/2018 6:24 AM CDT) Only the most recent of 3 results within the time period is included. Hemoglobin A1C 5.7 4.0 - 6.0 % [facility] Comment: PATHOLOGY AND GENOMIC MEDICINE Less than 6% - Goal of therapy for Type II Diabetes Less than 7%-Goal of therapy for Type I Diabetes Less than 8%-Accepta ble control for Type I or Type II Diabetes Greater than 8%-Unacceptabl e control; action indicated. ([id number]) Performing Organization Address City/[facility]/Zipcode Phone Number [place] [address] [place] [address] PATHOLOGY AND GENOMIC MEDICINE * Basic metabolic panel (06/14/2018 6:24 AM CDT) Only the most recent of 10 results within the time period is included. Sodium 141 135 - 150 mEq/L [facility]IC[facility] Potassium 4.8 3.5 - 5.0 mEq/L [facility]Y AND GENOMIC MEDICINE Chloride 106 98 - 112 mEq/L [facility] AND GENOMIC MEDICINE CO2 23 (L) 24 - 31 mmol/L [facility]Y AND GENOMIC MEDICINE Anion gap 12@ANIO 7 - 15 mEq/L [facility] AND GENOMIC MEDICINE BUN 11 7 - 18 mg/dL [facility] AND GENOMIC MEDICINE Creatinine 0.80 0.70 - 1.20 mg/dL [facility] AND GENOMIC MEDICINE Glucose 116 (H) 65 - 100 mg/dL [facility] AND GENOMIC MEDICINE Calcium 9.5 8.3 - 10.2 mg/dL [facility] AND GENOMIC MEDICINE Specimen Plasma specimen Performing Organization Address City/State/Zipcode Phone Number [facility] [address] [place] [address] PATHOLOGY AND GENOMIC MEDICINE * CTA Chest W Wo Contrast And Abdomen W Wo Contrast (06/13/2018 4:19 PM CDT) Narrative Performed At EXAMINATION:CT ANGIOGRAM CHEST W WO CONTRAST AND ABDOMEN W WO CONTRAST [facility] CLINICAL HISTORY:eval for dissection TECHNIQUE: Multiple CT angiographic images of the chest and abdomen were obtained during intravenous administration of contrast. Multiple computerized reformatted images as well as 3-D volume rendered images were also obtained. COMPARISON:June 01, 2018 CT chest FINDINGS: Vascular: The aorta is of normal course and caliber throughout its length. There is trace atherosclerosis at the arch. No evidence of dissection or intramural hematoma. Teachers' Assistant aortic diameters: Ascendin.2 cm Isthmus: 2.9 cm Distal descending thoracic colon 2.5 cm Diaphragmatic hiatus: 2.5 cm Level of renal arteries: 2 cm Normal great vessel caliber. Single origin of the celiac axis and SMA. Tortuous common and external iliac arteries of normal caliber. Soft tissues: Bibasilar subsegmental atelectasis. 1 cm left lower lobe pulmonary nodule, stable. Mild prominence of the intraparenchymal pulmonary arteries bilaterally. Heart and pericardium are normal. Moderate coronary artery calcification. Liver: Diffuse low-attenuation with fatty sparing along the gallbladder fossa. Gallbladder: Calcified stone measuring 1.8 cm in diameter. Pancreas: Normal Spleen: Normal Adrenal glands: Normal Kidneys: Horseshoe kidney; otherwise, normal Urinary bladder: Normal Prostate and seminal vesicles: Normal Bowel: Normal caliber. Normal appendix. Hiatal hernia. Peritoneum: Normal. Anterior diaphragmatic hernia repair with mesh. No evidence of recurrent hernia. Lymph nodes: Normal Skeleton: Acutely intact. Grade 1 anterolisthesis of L4 on L5 in association with bilateral pars defects. Soft tissues: Fat-containing inguinal hernias (left greater than right). Postsurgical changes in the right groin. IMPRESSION: 1.No acute abnormality of the aorta. 2.Stable 1 cm left lower lobe pulmonary nodule. 3.Hepatic steatosis. [facility]-[id number] Procedure Note Interface, Radiology Results Incoming - 06/13/2018 4:34 PM CDT EXAMINATION: CT ANGIOGRAM CHEST W WO CONTRAST AND ABDOMEN W WO CONTRAST CLINICAL HISTORY: eval for dissection TECHNIQUE: Multiple CT angiographic images of the chest and abdomen were obtained during intravenous administration of contrast. Multiple computerized reformatted images as well as 3-D volume rendered images were also obtained. COMPARISON: June 01, 2018 CT chest FINDINGS: Vascular: The aorta is of normal course and caliber throughout its length. There is trace atherosclerosis at the arch. No evidence of dissection or intramural hematoma. Teachers' Assistant aortic diameters: Ascendin.2 cm Isthmus: 2.9 cm Distal descending thoracic colon 2.5 cm Diaphragmatic hiatus: 2.5 cm Level of renal arteries: 2 cm Normal great vessel caliber. Single origin of the celiac axis and SMA. Tortuous common and external iliac arteries of normal caliber. Soft tissues: Bibasilar subsegmental atelectasis. 1 cm left lower lobe pulmonary nodule, stable. Mild prominence of the intraparenchymal pulmonary arteries bilaterally. Heart and pericardium are normal. Moderate coronary artery calcification. Liver: Diffuse low-attenuation with fatty sparing along the gallbladder fossa. Gallbladder: Calcified stone measuring 1.8 cm in diameter. Pancreas: Normal Spleen: Normal Adrenal glands: Normal Kidneys: Horseshoe kidney; otherwise, normal Urinary bladder: Normal Prostate and seminal vesicles: Normal Bowel: Normal caliber. Normal appendix. Hiatal hernia. Peritoneum: Normal. Anterior diaphragmatic hernia repair with mesh. No evidence of recurrent hernia. Lymph nodes: Normal Skeleton: Acutely intact. Grade 1 anterolisthesis of L4 on L5 in association with bilateral pars defects. Soft tissues: Fat-containing inguinal hernias (left greater than right). Postsurgical changes in the right groin. IMPRESSION: 1. No acute abnormality of the aorta. 2. Stable 1 cm left lower lobe pulmonary nodule. 3. Hepatic steatosis. [facility]-[id number] Performing Organization Address City/State/Zipcode Phone Number [facility] [address] [place] [address] * D-dimer (06/13/2018 12:05 PM CDT) D-dimer 0.31 0.00 - 0.40 ug/mL FEU [facility] Comment: PATHOLOGY AND Units are ug/ml [employer] GENOMIC MEDICINE Equivalent Unit. When combined with low clinical probability, D-dimer results of less than 0.5 ug/ml FEU have a good negativepredictive value in excluding PE or DVT. For D-dimer results greater than 0.5ug/ml FEU further testing is indicated if PE or DVT is suspectedclinically. Elevated D-dimer results have been reported in DVT, PE, and DIC cases and may indicate the presence of a clot. D-dimer results may be elevated due to old age, , inflammatory diseases, trauma, post-operative states, sepsis, and malignancies. Specimen Blood Performing Organization Address City/[facility]/Zipcode Phone Number [place] [phone] [place] [address] PATHOLOGY AND GENOMIC MEDICINE * Anti Xa, unfractionated (06/06/2018 6:50 AM CDT) Only the most recent of 12 results within the time period is included. Anti Xa, unfractionated 0.43Comment: Therapeutic 0.30 - 0.70 U/mL [facility] Range: 0.30 - 0.70 U/mL PATHOLOGY AND [employer] MEDICINE Specimen Blood Performing Organization Address City/State/Zipcode Phone Number [place] [address] [place] [address] PATHOLOGY AND GENOMIC MEDICINE * CBC hemogram (06/06/2018 6:50 AM CDT) Only the most recent of 3 results within the time period is included. WBC 11.5 (H) 4.2 - 11.0 k/uL [facility]IC[facility] RBC 4.74 4.04 - 5.86 m/uL [facility]IC[facility] HGB 15.5 13.0 - 17.3 g/dL [facility]IC[facility] HCT 45.0 34.0 - 45.0 % [facility] MEDICINE MCV 94.9 80.0 - 98.0 fL [facility]IC[facility] MCH 32.7 27.0 - 34.0 pg [facility] MEDICINE MCHC 34.4 31.5 - 36.5 g/dL [facility] MEDICINE RDW - SD 45.1 37.0 - 51.0 fL [facility] MEDICINE MPV 10.7 (H) 7.4 - 10.4 fL [facility]IC[facility] Platelet count 117 (L) 150 - 400 k/uL [facility] MEDICINE Nucleated RBC 0.00 /100 WBC [facility] OF PATHOLOGY AND GENOMIC MEDICINE Specimen Blood Performing Organization Address City/State/Zipcode Phone Number [facility] [address] [place] [address] PATHOLOGY AND GENOMIC MEDICINE * POC ACT (06/05/2018 9:14 AM CDT) Activated clotting time, 175 seconds POC Specimen Blood * Cv dentures lab technician procedure (06/05/2018 9:12 AM CDT) Narrative Performed At [facility] C[facility]ter[facility] Operative Report Narinder Garvey [id number] 06/05/2018 Indications for the procedure include: abnormal stress test, chest pain. Procedures: 1.Selective coronary angiogram. 2. Moderate sedation was adminstered under physician supervision of patient consciousness,, respiration, oximetry, hemodynamics beginning at 0825 for a total period of 45 minutes. 3.IFR of the ramus intermedius. Procedure Details The risks, benefits, complications, treatment options, and expected outcomes were discussed with the patient. The patient and/or family concurred with the proposed plan, giving informed consent. Patient was brought to the dentures lab technician after IV hydration was begun and oral premedication was given. He was further sedated with fentanyl and midazolam. He was prepped and draped in the usual manner. Using modified Seldinger access technique, a 6 [place] sheath was placed in the femoral artery. Angiograms were done in different projections of the left and right coronaries. Interventions: IFR of the Ramus. XB 3 5 guide was used for engaging the left main.Patient was given IV heparin.IFR wire was equalized in the aorta.Then it was advanced into the ramus beyond the origin of the ramus.IFR was 0.98. After the procedure was completed, sedation was stopped and the sheaths and catheters were all removed. Hemostasis was achieved with a mynx device. Findings: 1.Left main is angiographically normal. 2.LAD has minimal luminal irregularities.Patient reported a history of stent which is not clearly visible but could be potentially in the LAD after the origin of the right coronary artery. 3.Left circumflex has minimal luminal irregularities. 4.Ramus intermedius is a medium to large sized vessel with a proximal 50% stenosis. 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 6.IFR of the ramus was insignificant at 0.98. Estimated Blood Loss:Minimal Complications:None; patient tolerated the procedure well. Disposition: PACU - hemodynamically stable. Condition: stable Recommendations: 1.Medical management of the ramus disease. Performing Organization Address [facility] Phone Number [facility] [address] [place] [address] * Activated clotting time (06/05/2018 9:07 AM CDT) Activated clotting time 175.0 (H) 74.0 - 125.0 sec [facility] Comment: PATHOLOGY AND Meter ID: [id number] [employer] Division Leader: Sharon Reagan Performing Organization Address [facility] [place] [address] PATHOLOGY AND GENOMIC MEDICINE * Myoglobin (06/05/2018 1:50 AM CDT) Myoglobin 30 21 - 72 ng/mL [facility] DEPARTMENT OF PATHOLOGY AND GENOMIC MEDICINE Specimen Plasma specimen Performing Organization Address [facility] Mex[facility]ode Phone Number [facility] DEPARTMENT OF [address] [place] [address] PATHOLOGY AND GENOMIC MEDICINE * Magnesium level (06/05/2018 1:50 AM CDT) Only the most recent of 2 results within the time period is included. Magnesium 1.90 1.60 - 2.60 mg/dL [facility] PATHOLOGY AND GENOMIC MEDICINE Specimen Plasma specimen Performing Organization Address [facility] [place] [address] PATHOLOGY AND GENOMIC MEDICINE * Echocardiogram complete w contrast and 3D if needed (06/03/2018 10:03 AM CDT) Velocity Ratio (V1/V2) 0.89 m/s [facility] IVS,d 0.96 cm [facility] EF 51.16 % [facility] Ascending aorta 3.36 cm [facility] LVPWD,d 1.01 cm [facility] AoV Mean PG 2.72 mmHg [facility] AV LVOT peak gradient 3.47 mmHg [facility] MV mean gradient 1.21 mmHg [facility] MV valve area p 1/2 4.89 cm2 [facility] method E/A ratio 1.29 [facility] E wave decelartion time 155.00 msec [facility] IVRT 85.63 msec [facility] LVOT Diam,S 2.58 cm [facility] LVOT area 5.23 cm2 [facility] LVOT Vmax 0.98 m/s [facility] LVOT VTI 0.16 m [facility] AoV Peak PG 4.77 mmHg [facility] MV Peak E Wilmer 0.89 m/s [facility] MV stenosis pressure 1/2 44.95 ms [facility] time MV Peak A Wilmer 0.69 m/s [facility] Ao Root Diameter 3.67 cm [facility] AoV Area, Vmax 4.46 cm2 [facility] AoV Area, VTI 4.07 cm2 [facility] AoV Vmax 1.10 m/s [facility] IVS/LVPW,2D 0.95 [facility] Left Atrium Dimension 3.79 cm [facility] Anterior LV,d 4.87 cm [facility] LV,s 3.60 cm [facility] MV E A ratio 1.30 [facility] MR peak grad 3.10 mmHg [facility] Ao Root Diameter 3.67 cm [facility] LV SYS VOL 54.42 ml [facility] LV LUJAN VOL 111.42 ml [facility] LA Vol MOD A4C 44.77 ml [facility] LV SV Teich 2D 57.00 ml [facility] LV Vol s Teich PSAX 54.42 ml [facility] LVOT CO 5.82 l/min [facility] LVOT HR for LVOT CO 67.81 bpm [facility] MV Vmax 0.88 m [facility] MV VTI Tips 0.22 m [facility] AoV Vmn 0.78 [facility] IVS s 2D 1.53 [facility] LV FS Cube 2D 26.14 [facility] LV FS Teich 2D 26.14 [facility] AoV VTI 0.21 m [facility] LV EF,2D 59.71 % [facility] MV AE ratio 0.77 [facility] LVOT Vmn 0.60 [facility] Aov area Vmn 4.10 cm2 [facility] LVOT mean grad 1.73 mmHg [facility] MAX Pred HR 170.68 [facility] 85 of MPHR 145.08 [facility] Calc MPHR 170.68 bpm [facility] IVS pct thck PLAX 59.00 % [facility] LV SV Cube 2D 69.13 ml [facility] LV vol d cube 2D 115.78 ml [facility] LV vol s cube 2D 46.65 ml [facility] LVPW pct thck PLAX 34.48 % [facility] LVPW s PLAX 1.36 cm [facility] MV Decel slope 5.75 m/s2 [facility] Pred Exer Dur R1 10.35 [facility] Pred METS R1 10.60 [facility] Narrative Performed At [facility] The left ventricular chamber size is normal. Left ventricular systolic function is normal. Left Ventricular ejection fraction is 55 - 60%. Normal left ventricular regional wall motion. Normal right ventricular size and global function. Spectral Doppler shows pseudonormal pattern of LV diastolic filling. Normal LV filling pressure. No significant difference since echocardiogram done 01/2018 Performing Organization Address City/State/[facility] Mexicocode Phone Number [facility] [address] [place] [address] * Keppra (Levetiracetam) level (06/03/2018 4:28 AM CDT) Only the most recent of 2 results within the time period is included. Levetiracetam <2 (L) 12 - 46 ug/mL [facility] Comment: INTERPRETIVE INFORMATION: Keppra (Levetiracetam) Therapeutic Range:12-46 ug/mL Toxic: Not well Established Pharmacokinetics of levetiracetam are affected by renal function. Adverse effects may include somnolence, weakness, headache and vomiting. This levetiracetam (Keppra) immunoassay uses the Devex reagents, which has known cross-reactivity with the drug brivaracetam (Briviact) and may report inaccurate results. Patients transitioning from levetiracetam to brivaracetam or those who are using both medications should not monitor drug concentrations with the [employer] assay. These patients should be monitored using a validated chromatographic methodology that distinguishes between drugs to determine drug concentrations. Performed by [employer], [address] [place] [address] [email or web address], Daniel Frost MD - Lab. Director Specimen Serum Performing Organization Address City/State/Zipcode Phone Number [facility] [address] [place] [address] * CT Angiogram Pe Chest (06/01/2018 1:32 PM CDT) Only the most recent of 2 results within the time period is included. Narrative Performed At PROCEDURE:CT ANGIOGRAM PE CHEST [facility] CLINICAL HISTORY:rule otu pe COMPARISON:October 19, 2017 TECHNIQUE: Quality of examination and flow bolus: The study is adequate for diagnostic interpretation. Contiguous 1.25 mm axial slices were performed from the lung apices to the upper abdomen following injection of intravenous iodinated contrast media without adverse reaction on a multidetector CT scanner using helical scanning technique followed by 2-D reconstructions in the sagittal and coronal planes. The dose length product for the procedure is 768 mGy-cm CT imaging was performed with iterative reconstruction technique and/or automated exposure control to reduce radiation dose. FINDINGS: 1. No filling defects are identified in the pulmonary outflow tract, right or left main pulmonary artery, ascending or descending pulmonary artery branches. Note is made of coronary artery calcifications as before. A small hiatus hernia is present. 2. The lung parenchymal window settings demonstrate a noncalcified nodule in the left lung base and measures 9 mm diameter. Previously the nodule measured 9.1 mm. 3. The multiplanar reconstructed 2-D images demonstrate no additional abnormality. 4. The attenuation of the liver is decreased relative to that of the spleen consistent with diffuse fatty infiltration. A persistent ring calcified calculus is seen in the gallbladder. IMPRESSION: Abnormal study. 1. No evidence for pulmonary embolism. 2. Hepatic steatosis and cholelithiasis as before. 3. Stable noncalcified nodule in the left lower lobe. This could be further evaluated with PET scan, if clinically indicated. [id number] Procedure Note Interface, Radiology Results Incoming - 06/01/2018 1:48 PM CDT PROCEDURE: CT ANGIOGRAM PE CHEST CLINICAL HISTORY: rule otu pe COMPARISON: October 19, 2017 TECHNIQUE: Quality of examination and flow bolus: The study is adequate for diagnostic interpretation. Contiguous 1.25 mm axial slices were performed from the lung apices to the upper abdomen following injection of intravenous iodinated contrast media without adverse reaction on a multidetector CT scanner using helical scanning technique followed by 2-D reconstructions in the sagittal and coronal planes. The dose length product for the procedure is 768 mGy-cm CT imaging was performed with iterative reconstruction technique and/or automated exposure control to reduce radiation dose. FINDINGS: 1. No filling defects are identified in the pulmonary outflow tract, right or left main pulmonary artery, ascending or descending pulmonary artery branches. Note is made of coronary artery calcifications as before. A small hiatus hernia is present. 2. The lung parenchymal window settings demonstrate a noncalcified nodule in the left lung base and measures 9 mm diameter. Previously the nodule measured 9.1 mm. 3. The multiplanar reconstructed 2-D images demonstrate no additional abnormality. 4. The attenuation of the liver is decreased relative to that of the spleen consistent with diffuse fatty infiltration. A persistent ring calcified calculus is seen in the gallbladder. IMPRESSION: Abnormal study. 1. No evidence for pulmonary embolism. 2. Hepatic steatosis and cholelithiasis as before. 3. Stable noncalcified nodule in the left lower lobe. This could be further evaluated with PET scan, if clinically indicated. [facility][id number] Performing Organization Address City/[facility]/Zipcode Phone Number [facility] [address] [place] [address] * Hepatic function panel (06/01/2018 11:15 AM CDT) Albumin 3.9 3.5 - 5.0 g/dL [facility] GENOMIC MEDICINE Total bilirubin 0.3 0.2 - 1.2 mg/dL [facility]OMIC MEDICINE Bilirubin direct <0.2 0.0 - 0.4 mg/dL [facility] AND GENOMIC MEDICINE Alkaline phosphatase 50 0 - 129 U/L [facility] GENOMIC MEDICINE Protein 6.5 6.3 - 8.3 g/dL [facility] AND GENOMIC MEDICINE ALT 56 (H) 5 - 50 U/L [facility] AND GENOMIC MEDICINE AST 36 10 - 50 U/L [facility] AND GENOMIC MEDICINE Specimen Plasma specimen Performing Organization Address City/[facility]/Zipcode Phone Number [place] [address] [place] [address] PATHOLOGY AND GENOMIC MEDICINE * XR Chest 2 Vw (06/01/2018 10:06 AM CDT) Only the most recent of 3 results within the time period is included. Narrative Performed At TWO VIEW CHEST, 06/01/2018 [facility] Clinical history:Chest pain Technique: PA and lateral views chest. Comparison: May 24, 2018; CT chest October 19, 2017 DISCUSSION: Minimal retrocardiac scar. Lungs are otherwise clear. No pleural effusions. Cardiac size and mediastinal contour are normal. Pulmonary vasculature is normal.The skeleton is grossly intact. Loop recorder over the left hemithorax. IMPRESSION: No acute abnormality Procedure Note Hm Interface, Radiology Results Incoming - 06/01/2018 10:12 AM CDT TWO VIEW CHEST, 06/01/2018 Clinical history: Chest pain Technique: PA and lateral views chest. Comparison: May 24, 2018; CT chest October 19, 2017 DISCUSSION: Minimal retrocardiac scar. Lungs are otherwise clear. No pleural effusions. Cardiac size and mediastinal contour are normal. Pulmonary vasculature is normal. The skeleton is grossly intact. Loop recorder over the left hemithorax. IMPRESSION: No acute abnormality Performing Organization Address City/State/Zipcode Phone Number [facility] [address] [place] [address] * Insert peripheral IV (06/01/2018 9:53 AM CDT) Only the most recent of 3 results within the time period is included. Narrative Performed At Dc Jaquez MD 06/01/2018 10:25 PM Insert peripheral IV Date/Time: 06/01/2018 11:02 AM Performed by: DC JAQUEZ Authorized by: DC JAQUEZ Consent: The procedure was performed in an emergent situation. Verbal consent obtained. Risks and benefits: risks, benefits and alternatives were discussed Consent given by: patient Patient understanding: patient states understanding of the procedure being performed Patient consent: the patient's understanding of the procedure matches consent given Procedure consent: procedure consent matches procedure scheduled Relevant documents: relevant documents present and verified Test results: test results available and properly labeled Site marked: the operative site was marked Imaging studies: imaging studies available Required items: required blood products, implants, devices, and special equipment available Patient identity confirmed: verbally with patient and arm band Time out: Immediately prior to procedure a "time out" was called to verify the correct patient, procedure, equipment, client support professional and site/side marked as required. Preparation: Patient was prepped and draped in the usual sterile fashion. Local anesthesia used: no Anesthesia: Local anesthesia used: no Sedation: Patient sedated: no Patient tolerance: Patient tolerated the procedure well with no immediate complications Comments: 18 G left upper arm, ultrasound guided. * Hepatitis acute panel (05/25/2018 5:02 AM CDT) Hepatitis A IgM Non-reactive Non-reactive [facility] [employer] MEDIC[facility] Hepatitis B core IgM Non-reactive Non-reactive [facility] AND [employer] MEDICINE Hepatitis B surface Ag Non-reactive Non-reactive [facility] AND [employer] MEDICINE Hepatitis C Ab Non-reactive Non-reactive [facility] AND [employer] MEDICINE Specimen Serum Performing Organization Address City/[facility] Phone Number [place] [phone] [facility] [place] [address] PATHOLOGY AND [facility] * HIV 1, 2 antibody (05/25/2018 5:02 AM CDT) HIV 1, 2 antibody Non-Reactive Non-reactive [facility] Comment: PATHOLOGY AND Starting from November 11 2015, [employer] 4th generation HIV screening and confirmation assays are in use at [facility], consistent with the CDC-recommended algorithm. The screening test detects antibodies to HIV-1, HIV-2 and the p24 antigen. Positive screening results will be automatically reflexed to a HIV-1/HIV-2 differentiation assay. Indeterminant HIV-1 results will be further automatically reflexed to a nucleic acid test for detection of acute infection. Western blot will no longer be performed as a confirmation test. For a quick reference guide on the testing algorithm, please refer to: http://stacks.cdc.gov/view/cdc /61428. Specimen Serum Performing Organization Address City/[facility]/Zipcode Phone Number [facility] [address] [place] [address] PATHOLOG[address] [employer] [facility] * Lipid panel (05/25/2018 5:02 AM CDT) Only the most recent of 3 results within the time period is included. Cholesterol 171 0 - 199 mg/dL [facility] AND [employer] MEDICINE Triglycerides 115 0 - 149 mg/dL [facility] [facility] [place] [facility] AND [employer] MEDICINE HDL cholesterol 38 (L) 40 - 9,999 mg/dL [facility] [employer] MEDICINE LDL cholesterol 134 (H)Comment: Result 0 - 99 mg/dL [facility] DEPARTMENT OF obtained by direct LDL PATHOLOGY AND measurement GENOMIC MEDICINE Lipid panel See below [facility] [facility] interpretation Comment: PATHOLOGY AND Total Cholesterol GENOMIC MEDICINE (mg/dL) LDL Cholesterol (mg/dL) <200 Desirable <100 Optimal 200-239Borderline -[id number] 29Near or above optimal >=240High 130-159Borderline- high 160-189High >=190Very high HDL Cholesterol (mg/dL) Triglycerides (mg/dL) <40Low <150 Normal >=60 High 150-199Borderline- high 200-499High >=500Very high Risk Catergories that modify LDL goals. Risk Catergories LDL goal (mg/dL) CHD and CHD risk equivalent <100 (10-year risk >20%) Multiple (2+) risk factors <130 (10-year risk=<20%) 0-1 risk factors <160 (<10-year risk) Defining levels of lipids in metabolic syndrome Triglycerides >=150 mg/dL HDL Cholesterol Men <40 mg/dL Women <50 mg/dL Non-HDL cholesterol is a second target for therapy in persons with high triglycerides (>=200 mg/dL) Specimen Plasma specimen Performing Organization Address City/State/Zipcode Phone Number [facility] [place] [address] [place] [address] PATHOLOGY AND GENOMIC MEDICINE * Pv duplex venous lower extremity (05/24/2018 5:32 PM CDT) Only the most recent of 2 results within the time period is included. Narrative Performed At EXAMINATION:US DUPLEX VENOUS LOWER EXTREMITY BILATERAL [facility] CLINICAL HISTORY:r o dvt COMPARISON:None. TECHNIQUE:Grayscale, color Doppler, and spectral waveform analysis of the bilateral lower extremity deep venous systems was performed. The bilateral common femoral, superficial femoral, proximal deep femoral, greater saphenous, and popliteal veins were evaluated. The calf vessels were also evaluated. FINDINGS: The bilateral common femoral, superficial femoral, and popliteal veins are compressible. They demonstrate normal venous waveforms and response to augmentation. There is flow in the visualized calf veins. There is no evidence of a popliteal or Beal's cyst. IMPRESSION: Normal bilateral lower extremity venous Doppler examination. There is no evidence of deep venous thrombosis. [id number] Procedure Note Hm Interface, Radiology Results Incoming - 05/24/2018 5:42 PM CDT EXAMINATION: US DUPLEX VENOUS LOWER EXTREMITY BILATERAL CLINICAL HISTORY: r o dvt COMPARISON: None. TECHNIQUE: Grayscale, color Doppler, and spectral waveform analysis of the bilateral lower extremity deep venous systems was performed. The bilateral common femoral, superficial femoral, proximal deep femoral, greater saphenous, and popliteal veins were evaluated. The calf vessels were also evaluated. FINDINGS: The bilateral common femoral, superficial femoral, and popliteal veins are compressible. They demonstrate normal venous waveforms and response to augmentation. There is flow in the visualized calf veins. There is no evidence of a popliteal or Beal's cyst. IMPRESSION: Normal bilateral lower extremity venous Doppler examination. There is no evidence of deep venous thrombosis. [id number] Performing Organization Address City/State/Zipcode Phone Number [facility] [address] [place] [address] * NM Lung Ventilation Perfusion (05/24/2018 1:18 PM CDT) Only the most recent of 2 results within the time period is included. Narrative Performed At CLINICAL HISTORY: cp with inspirationhx of stentscad... allergic to [facility] iodine COMPARISON: VQ scan 12/24/2017 TECHNIQUE: The patient breathed 15-20 mCi of xenon-133 gas through a closed ventilation system while dynamic imaging of the lungs was performed in the posterior and anterior projections. The patient was then injected with 5 mCi of [id number] intravenously, followed by imaging of the lungs in anterior, posterior, and oblique projections. FINDINGS: Stable, moderate-sized, wedge-shaped perfusion defect in the lateral right upper lobe. Perfusion elsewhere is normal. Ventilation is unremarkable. IMPRESSION: Very Low Probability for acute pulmonary embolism. A perfusion defect in the right upper lobe likely represents an old, unresolved pulmonary embolism, unchanged from 12/24/2017. [id number] Procedure Note Interface, Radiology Results Incoming - 05/24/2018 1:34 PM CDT CLINICAL HISTORY: cp with inspiration hx of stents cad... allergic to iodine COMPARISON: VQ scan 12/24/2017 TECHNIQUE: The patient breathed 15-20 mCi of xenon-133 gas through a closed ventilation system while dynamic imaging of the lungs was performed in the posterior and anterior projections. The patient was then injected with 5 mCi of [id number] intravenously, followed by imaging of the lungs in anterior, posterior, and oblique projections. FINDINGS: Stable, moderate-sized, wedge-shaped perfusion defect in the lateral right upper lobe. Perfusion elsewhere is normal. Ventilation is unremarkable. IMPRESSION: Very Low Probability for acute pulmonary embolism. A perfusion defect in the right upper lobe likely represents an old, unresolved pulmonary embolism, unchanged from 12/24/2017. [id number] Performing Organization Address City/State/Zipcode Phone Number [facility] [address] [place] [address] * Urinalysis screen and microscopy, with reflex to culture (05/24/2018 11:51 AM CDT) Only the most recent of 4 results within the time period is included. Specimen site Catheterized [facility] MEDICINE Color, UA Yellow [facility] [place] [facility]OMIC MEDICINE Appearance, UA Clear [facility] [place] [facility] AND [facility]OMIC MEDICINE Specific gravity, UA 1.018 1.001 - 1.035 [facility] [place]OMIC MEDICINE pH, UA 7.0 5.0 - 8.5 [facility] [place] [facility]OMIC MEDICINE Protein, UA Negative Negative [facility] [place]OMIC MEDICINE Glucose, UA Negative Negative [facility] [place] [facility]OMIC MEDICINE Ketones, UA Negative Negative [facility] [place]OMIC MEDICINE Bilirubin, UA Negative Negative [facility] [place] [facility]OMIC MEDICINE Blood, UA Negative Negative [facility] [place] [facility] GENOMIC MEDICINE Nitrite, UA Negative Negative [facility] [place]OMIC MEDICINE Urobilinogen, UA Negative <2.0 [facility] [place] [facility]OMIC MEDICINE Leukocyte esterase, UA Negative Negative [facility] [place] [facility] [place]OMIC MEDICINE WBC, UA 1 0 - 1 /HPF [facility] [place] [facility]OMIC MEDICINE RBC, UA 1 0 - 5 /HPF [facility] [place] [facility]OMIC MEDICINE Bacteria, UA None seen None seen [facility] [place] [facility]OMIC MEDICINE Yeast, UA None seen [facility] [place] [facility] GENOMIC MEDICINE Yeast with pseudohyphae, None seen [facility] [place] [facility]OMIC MEDICINE Specimen Urine Performing Organization Address City/State/Zipcode Phone Number [facility] [place] [address] [place] [address] PATHOLOGY AND GENOMIC MEDICINE * Urine culture (05/24/2018 11:51 AM CDT) Only the most recent of 3 results within the time period is included. Urine culture SEE COMMENTComment: [facility] Bacteriuria screen negative. PATHOLOGY AND GENOMIC MEDICINE Specimen Urine Performing Organization Address City/State/Zipcode Phone Number [facility] [place] [address] [place] [address] PATHOLOGY AND GENOMIC MEDICINE * Consult to Sepsis Response Team (05/24/2018 11:46 AM CDT) Narrative Performed At NIGEL Nichols 05/24/2018 11:51 AM Lab reporting lactic acid level 2.2 ER CN updated in orders added for sepsis Source: PNA? IVF Bolus: NA IVF Maintenance: NA Blood Cultures: Added x2 UA/UCX: pending Sputum CX: NA Lactic Acid: 2.2, will trend Anti-infective first dose: Rocephin and Azithromycin Anti-infective scheduled dose: Rocephin and Azithromycin Sepsis Clinical Assessment Performed by: GLEN VALERIO Authorized by: GLEN VALERIO Sepsis Clinical Assessment General Assessment Information Current sepsis score:0 On comfort care?: No If score does not worsen, snooze alerts until:05/24/2018 23:45 CDT SIRS Criteria Heart rate > 90 bpm due to acute condition WBC < 4 K/mcL due to acute condition Organ Dysfunction Lactate > 2.0 mmol/L due to acute condition Sepsis Assessment Clinical suspicion of infection? Yes Time of suspicion of infection:05/24/2018 11:46 AM Clinical suspicion of sepsis?: Yes Sepsis staging:Sepsis Sepsis protocol started?Yes Where did the protocol start?:ED Started Suspected Type/Source of Infection Suspected Type of Infection: Bacterial Suspected Source of Infection: Pneumonia Other Acute Diagnoses Other Acute Diagnosis: Pneumonia Focus Exam Sepsis focus exam performed at 05/24/2018 11:48 AM Cardiopulmonary Exam Heart: Regular rate & rhythm Left Lung: Clear Right Lung: Clear Capillary Refill Capillary refill rate: Brisk, < 3 s Peripheral Pulses Left dorsalis pedis:Normal Right dorsalis pedis:Normal Left posterial tibial: Normal Right posterial tibial:Normal Left radial:Normal Right radial:Normal Skin Exam Skin exam: Skin color normal Sepsis Related Vitals Heart rate: 95 Temperature: 99.1 F Respiratory rate: 20 Blood pressure: (!) 179/112 Altered mental status: WBC (k/uL) Date Value 05/24/2018 3.7 (L) 01/29/2018 4.2 Weight-Based Fluid Bolus Calculation The recommended weight-based bolus volume: 3,810 mL (dosing weight) Please refer to the MAR for actual med/fluid administrations. * Blood culture, aerobic & anaerobic (05/24/2018 11:25 AM CDT) Only the most recent of 3 results within the time period is included. Blood culture isolate No growth after 5 days of [facility] DEPARTMENT OF incubation. PATHOLOGY AND Comment: GENOMIC MEDICINE Specimen Information Specimen Source: Blood Specimen Site: right hand Specimen Blood Performing Organization Address City/[facility] Phone Number [facility] DEPARTMENT OF [address] [place] [address] PATHOLOGY AND GENOMIC MEDICINE * Type and screen (05/24/2018 8:15 AM CDT) Only the most recent of 2 results within the time period is included. ABO grouping O [facility] [place] [place] MEDIC[facility] Rh type POS [facility] [place] [place] [facility] GENOMIC MEDICINE Antibody screen (gel) NEG [facility] [place] [facility] [place] GENOMIC MEDICINE Specimen Blood Performing Organization Address City/[facility] Phone Number [facility] [place] [facility] [place] [address] [facility] [place] [address] PATHOLOGY AND GENOMIC MEDICINE * Creatine kinase, total (CPK) (05/24/2018 8:15 AM CDT) Creatine kinase 188 39 - 308 U/L [facility] [place] [place] GENOMIC MEDICINE Specimen Plasma specimen Performing Organization Address City/[facility] Phone Number [facility] [place] [facility] [address] [place] [address] PATHOLOGY AND GENOMIC MEDICINE * Echocardiogram complete w contrast and 3D if needed (01/29/2018 12:08 PM CDT) Ao Root Diameter 3.71 cm [facility] AoV Area, Vmax 3.50 cm2 [facility] AoV Area, VTI 3.65 cm2 [facility] AoV Mean PG 2.67 mmHg [facility] AoV Peak PG 4.56 mmHg [facility] AoV Vmax 1.07 m/s [facility] AoV VTI 0.24 m [facility] IVS,d 1.19 0.6 - 1.2 cm [facility] Left Atrium Dimension 4.28 cm [facility] Anterior LV,d 4.61 cm [facility] LV,s 2.90 cm [facility] LVOT Diam,S 2.52 cm [facility] LVOT Vmax 0.75 m/s [facility] LVOT VTI 0.17 m [facility] LVPWD,d 1.30 cm [facility] PV Pk Grad 1.22 mmHg [facility] PV VMAX 0.55 m/s [facility] RVSP (TR) 16.21 mmHg [facility] TR Vpeak 1.25 mm/s [facility] MV E A ratio 2.03 mmHg [facility] TR pk grad 6.21 mmHg [facility] E wave decelartion time 205.34 msec [facility] MV Peak A Wilmer 0.48 m/s [facility] MV Peak E Wilmer 0.98 m/s [facility] AV LVOT peak gradient 2.25 mmHg [facility] Ascending aorta 3.67 cm [facility] RVSP 16.21 mmHg [facility] Ao Root Diameter 3.71 cm [facility] LV SYS VOL 32.29 ml [facility] LV LUJAN VOL 97.79 ml [facility] LA area s A4C 18.61 cm2 [facility] LV SV Teich 2D 65.50 ml [facility] LVOT CO 4.64 l/min [facility] LVOT HR for LVOT CO 53.49 bpm [facility] AoV Vmn 0.79 [facility] IVS s 2D 1.66 [facility] LVOT Vmn 0.57 [facility] LVOT mean grad 1.38 mmHg [facility] LVPW s PLAX 1.70 cm [facility] MV Decel slope 4.77 m/s2 [facility] LA Vol MOD A4C 56.94 ml [facility] Velocity Ratio (V1/V2) 0.70 m/s [facility] EF 66.98 % [facility] E/A ratio 2.04 [facility] LVOT area 4.99 cm2 [facility] Narrative Performed At [facility] The left ventricle chamber size is normal. There is mild left ventricular Left Ventricular ejection fraction is 50 - 55%. Left atrium size is mildly dilated. No pericardial effusion Spectral Doppler shows impaired relaxation pattern of left ventricular diastolic filling. The mitral valve appears thickened. Performing Organization Address City/State/Zipcode Phone Number [facility] [address] [place] [address] * Estimated GFR (01/29/2018 5:48 AM CDT) Only the most recent of 14 results within the time period is included. GFR Non Af Amer 64 mL/min/1.73 m2 [facility] [place]IC MEDICINE GFR Af Amer 78 mL/min/1.73 m2 [facility] [place] Comment: PATHOLOGY AND Chronic kidney disease: <60 GENOMIC MEDICINE mL/min/1.73m2 Kidney failure: <15 mL/min/1.73m2 The estimated GFR is calculated from the IDMS-traceable Modification of Diet in Renal Disease Equation. The accuracy of the calculation is poor when the creatinine is normal. Calculated values >90 mL/min/1.73m2 are not reported. This equation has not been validated in children (<18 years), women, the elderly (>70 years), or ethnic groups other than Caucasians and Americans. Specimen Plasma specimen Performing Organization Address City/[facility] Phone Number [address] [place] [address] PATHOLOGY AND GENOMIC MEDICINE * Urine drugs of abuse screen (01/28/2018 7:45 PM CDT) Amphetamine screen, urine NEG [facility] [place] GENOMIC MEDICINE Barbiturate screen, urine NEG [facility] [place] [facility] [place] AND GENOMIC MEDICINE Benzodiazepine screen, NEG [facility] [place] urine PATHOLOGY AND GENOMIC MEDICINE Cocaine screen, urine NEG [facility] [place] [facility] [place] AND GENOMIC MEDICINE Methadone screen, urine NEG [facility] [place] [place]Y AND GENOMIC MEDICINE Opiates screen, urine NEG [facility] [place] [facility] [place]Y AND GENOMIC MEDICINE Phencyclidine screen, NEG [facility] [place] urine PATHOLOGY AND GENOMIC MEDICINE Cannabinoid screen, urine NEG [facility] Comment: PATHOLOGY AND Drug screen minimum GENOMIC MEDICINE concentration of detectability Amphetamines 1000 ng/mL Methamphetamines 1000 ng/mL Barbiturates 300 ng/mL Benzodiazepines 300 ng/mL Cocaine 300 ng/mL Methadone 300 ng/mL Opiates 300 ng/mL Phencyclidine 25 ng/mL Cannabinoids 50 ng/mL Tricyclics 1000 ng/mL Negative test results indicates presumptive evidence of lack of clinically significant drug concentration in this urine specimen. Positive test results are presumptive evidence of clinically significant drug concentration in this urine specimen. Testing performed for medical purposes only. Specimen Urine Performing Organization Address City/[facility] Phone Number [facility] [address] [facility] [place] [address] PATHOLOGY AND GENOMIC MEDICINE * MRA Head Wo Contrast (01/20/2018 4:30 PM CDT) Narrative Performed At EXAMINATION:MRA HEAD WO CONTRAST [facility] COMPARISON:None CLINICAL HISTORY:left cva TECHNIQUE: MIP and MPR images are submitted. FINDINGS: There are no stenoses and no aneurysms. There is no obvious vasospasm or dissection. There is origin of the left posterior cerebral artery. There are no other anatomic variants. IMPRESSION: Unremarkable study. [id number] Procedure Note Interface, Radiology Results Incoming - 01/20/2018 4:43 PM CDT EXAMINATION: MRA HEAD WO CONTRAST COMPARISON: None CLINICAL HISTORY: left cva TECHNIQUE: MIP and MPR images are submitted. FINDINGS: There are no stenoses and no aneurysms. There is no obvious vasospasm or dissection. There is origin of the left posterior cerebral artery. There are no other anatomic variants. IMPRESSION: Unremarkable study. [id number] Performing Organization Address City/State/Zipcode Phone Number [facility] [address] [place] [address] * MRA Chest Wo Contrast (01/20/2018 4:30 PM CDT) Narrative Performed At EXAMINATION:MRA CHEST WO CONTRAST [facility] CLINICAL HISTORY:chest painr o dissection TECHNIQUE: Multiplanar and multisequence MR imaging of the chest was obtained. Images were obtained with and without the intravenous demonstration of contrast. Angiography imagingprotocol techniques were obtained with multiplanar images obtained. COMPARISON:None. FINDINGS: There is no thoracic aortic dissection. The thoracic aorta is normal in caliber. There is no great vessel origin stenosis off the thoracic aortic arch. Heart size is normal. No definite lymphadenopathy is present in the chest. No pleural or pericardial effusion is present. Volume loss is suspected in the lungs. There is no acute osseous abnormality. IMPRESSION: No acute findings. No thoracic aortic dissection. [id number] Procedure Note Interface, Radiology Results Incoming - 01/20/2018 4:58 PM CDT EXAMINATION: MRA CHEST WO CONTRAST CLINICAL HISTORY: chest pain r o dissection TECHNIQUE: Multiplanar and multisequence MR imaging of the chest was obtained. Images were obtained with and without the intravenous demonstration of contrast. Angiography imagingprotocol techniques were obtained with multiplanar images obtained. COMPARISON: None. FINDINGS: There is no thoracic aortic dissection. The thoracic aorta is normal in caliber. There is no great vessel origin stenosis off the thoracic aortic arch. Heart size is normal. No definite lymphadenopathy is present in the chest. No pleural or pericardial effusion is present. Volume loss is suspected in the lungs. There is no acute osseous abnormality. IMPRESSION: No acute findings. No thoracic aortic dissection. [id number] Performing Organization Address [facility]/Zipcode Phone Number [facility] [address] [place] [address] * MRI Brain Wo Contrast (01/20/2018 4:18 PM CDT) Only the most recent of 2 results within the time period is included. Narrative [facility]formed At [facility] EXAMINATION:MRI BRAIN WO CONTRAST CLINICAL HISTORY:left side weakness COMPARISON:CT of the head dated January 20, 2018 at 1431 hours TECHNIQUE: Multiplanar MRI imaging without IV Gadolinium was performed. FINDINGS: There is generalized brain parenchymal atrophy with white matter nonspecific T2 hyperintensities most likely to represent microvascular chronic ischemic disease. There is no evidence of acute infarction, hemorrhage, mass lesion, or midline shift. Ventricles, sulci, and cisterns are age-appropriate in size and configuration. There is no extra-axial fluid collection. Flow voids of the major intracranial vessels are intact. Mucosal retention cysts are seen in the left maxillary sinus and provides most of its lumen. Bones, orbits, and soft tissues are unremarkable. IMPRESSION: No acute intracranial abnormality. [id number] Procedure Note [facility], Radiology Results Incoming - 01/20/2018 4:26 PM CDT EXAMINATION: MRI BRAIN WO CONTRAST CLINICAL HISTORY: left side weakness COMPARISON: CT of the head dated January 20, 2018 at 1431 hours TECHNIQUE: Multiplanar MRI imaging without IV Gadolinium was performed. FINDINGS: There is generalized brain parenchymal atrophy with white matter nonspecific T2 hyperintensities most likely to represent microvascular chronic ischemic disease. There is no evidence of acute infarction, hemorrhage, mass lesion, or midline shift. Ventricles, sulci, and cisterns are age-appropriate in size and configuration. There is no extra-axial fluid collection. Flow voids of the major intracranial vessels are intact. Mucosal retention cysts are seen in the left maxillary sinus and provides most of its lumen. Bones, orbits, and soft tissues are unremarkable. IMPRESSION: No acute intracranial abnormality. [id number] Performing Organization Address City/[facility]/Zipcode Phone Number [facility] [address] [place] [address] * CRITICAL CARE (01/20/2018 2:49 PM CDT) Narrative Performed At Leland Leblanc DO 01/25/20183:13 PM Critical Care Performed by: LELAND LEBLANC Authorized by: LELAND LEBLANC Critical care provider statement: Critical care time (minutes):45 Critical care time was exclusive of:Separately billable procedures and treating other patients Critical care was necessary to treat or prevent imminent or life-threatening deterioration of the following conditions:CLINICAL CASE MANAGER failure or compromise and circulatory failure Critical care was time spent personally by me on the following activities:Development of treatment plan with patient or surrogate, discussions with consultants, discussions with primary provider, evaluation of patient's response to treatment, examination of patient, interpretation of cardiac output measurements, obtaining history from patient or surrogate, ordering and performing treatments and interventions, ordering and review of laboratory studies, ordering and review of radiographic studies, pulse oximetry, re-evaluation of patient's condition and review of old charts * CT Stroke Brain Wo Contrast (01/20/2018 2:36 PM CDT) Narrative Performed At EXAMINATION:CT STROKE BRAIN WO CONTRAST [facility] CT IMAGING WAS PERFORMED WITH ITERATIVE RECONSTRUCTION TECHNIQUE AND/OR AUTOMATED EXPOSURE CONTROL TO REDUCE RADIATION DOSE. CLINICAL HISTORY:left side weakness COMPARISON:MRI brain October 19, 2017. FINDINGS: 1. There is no acute intracranial abnormality. Specifically there is no intracranial hemorrhage, mass effect or acute infarction. 2.There are minimal chronic microvascular white matter changes better demonstrated on MRI examination. There is no significant volume loss. 3.There is what appears to be a large retention cyst in the maxillary sinus on the left. There is minimal mucosal thickening in the ethmoid and right maxillary sinus. IMPRESSION: No acute abnormality demonstrated and no change from the prior study. LELAND LEBLANC was informed of these findings on 01/20/2018 2:43 PM and acknowledged understanding of the findings. [id number] Procedure Note Hm Interface, Radiology Results Incoming - 01/20/2018 2:47 PM CDT EXAMINATION: CT STROKE BRAIN WO CONTRAST CT IMAGING WAS PERFORMED WITH ITERATIVE RECONSTRUCTION TECHNIQUE AND/OR AUTOMATED EXPOSURE CONTROL TO REDUCE RADIATION DOSE. CLINICAL HISTORY: left side weakness COMPARISON: MRI brain October 19, 2017. FINDINGS: 1. There is no acute intracranial abnormality. Specifically there is no intracranial hemorrhage, mass effect or acute infarction. 2. There are minimal chronic microvascular white matter changes better demonstrated on MRI examination. There is no significant volume loss. 3. There is what appears to be a large retention cyst in the maxillary sinus on the left. There is minimal mucosal thickening in the ethmoid and right maxillary sinus. IMPRESSION: No acute abnormality demonstrated and no change from the prior study. LELAND LEBLANC was informed of these findings on 01/20/2018 2:43 PM and acknowledged understanding of the findings. [id number] Performing Organization Address [facility] Phone Number [facility] [address] [place] [address] * XR Chest 1 Vw (12/24/2017 3:28 PM CDT) Narrative Performed At EXAMINATION:XR CHEST 1 VW RADIANT CLINICAL HISTORY:Chest Pain COMPARISON:Single view chest from 10/29/2017 IMPRESSION: An AP radiograph of the chest was submitted for interpretation. Bibasilar atelectasis. No focal consolidation or pleural effusion. No pneumothorax or midline shift. The mediastinal contours and cardiac silhouette are unchanged and unremarkable. The bones are unremarkable. [id number] Procedure Note Hm Interface, Radiology Results Incoming - 12/24/2017 3:38 PM CDT EXAMINATION: XR CHEST 1 VW CLINICAL HISTORY: Chest Pain COMPARISON: Single view chest from 10/29/2017 IMPRESSION: An AP radiograph of the chest was submitted for interpretation. Bibasilar atelectasis. No focal consolidation or pleural effusion. No pneumothorax or midline shift. The mediastinal contours and cardiac silhouette are unchanged and unremarkable. The bones are unremarkable. [facility]-[id number] Performing Organization Address [facility] Phone Number [facility] [address] [place] [address] * CRITICAL CARE (10/29/2017 9:40 PM CDT) Narrative Performed At Christiana Espinoza MD 10/30/20179:29 PM Critical Care Performed by: CHRISTIANA ESPINOZA Authorized by: CHRISTIANA ESPINOZA Critical care provider statement: Critical care time (minutes):33 Critical care time was exclusive of:Separately billable procedures and treating other patients and teaching time Critical care was necessary to treat or prevent imminent or life-threatening deterioration of the following conditions:Cardiac failure Critical care was time spent personally by me on the following activities:Development of treatment plan with patient or surrogate, discussions with consultants, evaluation of patient's response to treatment, examination of patient, obtaining history from patient or surrogate, ordering and performing treatments and interventions, ordering and review of laboratory studies, ordering and review of radiographic studies, pulse oximetry, re-evaluation of patient's condition and review of old charts * CV stress test (10/19/2017 1:15 PM SCROLL SAW OPERATOR) Resting HR 110 [facility] Resting BP 115/67 [facility] Peak MET Achieved 1.0 [facility] Protocol Name RUBENS [facility] Time in Exercise Phase 00:00:54 [facility] Max Systolic BP 115 [facility] Max Diastolic BP 67 [facility] Max Heart Rate 117 [facility] Max Predicted Heart Rate 172 [facility] Target HR Formula (220 - Age)*85% [facility] Arrhy During Ex none [facility] ECG Interp Before EX abnormal [facility] ECG Interp During Ex none [facility] Ex Summary Comment Normal stress test, MYOVIEW TO [facility] FOLLOW Chest Pain Statement non-limiting [facility] Overall HR Response to appropriate [facility] Exercise Overall BP Response To normal resting BP - [facility] Exercise appropriate response Reason for Termination Protocol Completed... [facility] Stress Test Impression Normal stress test, Myoview to [facility] follow-c/o chest pain unchanged from baseline cp, no sob. - Target HR 146.20 bpm [facility] Post peak HR 115 bpm [facility] Percent HR 78.66 % [facility] Post peak BP 110/58 mmHg [facility] Narrative Performed At Performing Organization Address City/State/Zipcode Phone Number [facility] [address] [place] [address] * CV myocardial perfusion (10/19/2017 1:15 PM SCROLL SAW OPERATOR) Target HR 146.20 bpm [facility] Resting HR 99 BPM [facility] Resting BP 115/67 mmHg [facility] Percent HR 80.03 % [facility] Post peak HR 117 bpm [facility] Post peak BP 115/67 mmHg [facility] Narrative Performed At [facility] Abnormal myocardial perfusion imaging Medium sizedfixed perfusion defect with mild intensity in basal and mid inferior wall consistent with inferior wall scar, can not rule out diaphragmatic attenuation. No inducible ischemia. Normal LV systolic function EF 87% with no SWMA . No previous study for comparison. Performing Organization Address [facility]/Zipcode Phone Number [facility] [address] [place] [address] * Respiratory pathogen panel (09/17/2017 10:05 PM SCROLL SAW OPERATOR) Respiratory pathogen Negative for all pathogens [facility] DEPARTMENT OF panel tested: PATHOLOGY AND Negative for Adenovirus GENOMIC MEDICINE Negative for Coronavirus HKU1 Negative for Coronavirus NL63 Negative for Coronavirus 229E Negative for Coronavirus OC43 Negative for Human Metapneumovirus Negative for Rhinovirus/Enterovirus Negative for Influenza A Negative for Influenza A/H1 Negative for Influenza A/H3 Negative for Influenza A/H1-2009 Negative for Influenza B Negative for Parainfluenza Virus 1 Negative for Parainfluenza Virus 2 Negative for Parainfluenza Virus 3 Negative for Parainfluenza Virus 4 Negative for Respiratory Syncytial Virus Negative for Bordetella pertussis Negative for Chlamydophila pneumoniae Negative for Mycoplasma pneumoniae This real-time PCR assay detects the presence of nucleic acids (RNA or DNA) for the respiratory pathogens listed. A result of "Not-detected" does not exclude the possibility of the presence of one or more pathogens at concentrations less than the detectable limits of the assay. Comment: Specimen Information Specimen Source: Nares Specimen Site: Right Specimen Nares - Right Performing Organization Address [facility] Phone Number [facility] DEPARTMENT OF [address] [place] [address] PATHOLOGY AND GENOMIC MEDICINE * Lactic acid level (09/17/2017 5:05 PM SCROLL SAW OPERATOR) Lactic acid 2.3 (H) 0.5 - 2.2 mmol/L [facility] DEPARTMENT OF PATHOLOGY AND GENOMIC MEDICINE Specimen Plasma specimen Performing Organization Address [facility] Phone Number [facility] DEPARTMENT OF [address] [place] [id number] PATHOLOGY AND GENOMIC MEDICINE after 09/07/2017 Advance Directives Patient has advance care planning documents, and code status on file. For more i nformation, please contact: Miles Rodriguez [address] [place] [phone] Date Inactivated Comments Code Status Date Activated 10/30/2017 12:59 PM Full Code 10/30/2017 12:51 AM Code Status decision reached by: Patient Code Status decision reached by: Patient 07/12/2017 1:42 PM Full Code 07/10/2017 5:57 AM Code Status decision reached by: Patient Code Status decision reached by: Patient 02/23/2017 6:24 PM Full Code 02/20/2017 11:51 PM Code Status decision reached by: Patient Code Status decision reached by: Patient
--- OUTSIDE RECORDS SUMMARY | 2018-09-08 11:26 | XMS REPORT | Continuity of Care Document ---
Author Author [facility] Interface Address Unknown Phone Unavailable Problems Problem Status Onset Date Classification Date Reported Comments Source [place] Active 07/10/2018 Diagnosis 07/18/2018 [facility] Passive smoke exposure Active 01/20/2018 Diagnosis 07/18/2018 [facility] Obesity Active 01/02/2018 Diagnosis 07/18/2018 [facility] Swelling of right leg Active 12/30/2017 Diagnosis 07/18/2018 [facility] Chest pain Active 12/30/2017 Diagnosis 07/18/2018 [facility] History of pulmonary embolus Active 10/23/2017 08/04/2018 [facility] H/O: CVA Active 10/23/2017 08/04/2018 [facility] Cocaine abuse Active 10/23/2017 08/04/2018 [facility] Chest pain Active 09/04/2017 08/04/2018 [facility] Hypertension Active 07/22/2017 Diagnosis 07/18/2018 [facility] Atrial fibrillation Active 07/22/2017 Diagnosis 07/18/2018 [facility] Coronary arterial disease Active 07/22/2017 Diagnosis 07/18/2018 [facility] History of pulmonary embolus Active 07/22/2017 Diagnosis 07/18/2018 [facility] Hx of acute myocardial infarction Active 07/22/2017 Diagnosis 07/18/2018 [facility] Hx of cardioembolic stroke Active 07/22/2017 Diagnosis 07/18/2018 [facility] Seizure disorder Active 07/22/2017 Diagnosis 07/18/2018 [facility] COPD Active 07/22/2017 Diagnosis 07/18/2018 [facility] Asthma Active 07/22/2017 Diagnosis 07/18/2018 [facility] GERD Active 07/22/2017 Diagnosis 07/18/2018 [facility] Patient has no insurance Active 07/22/2017 Diagnosis 07/18/2018 [facility] Hernia of anterior abdominal wall Active 07/22/2017 Diagnosis 07/18/2018 [facility] Benign prostatic hypertrophy Active 07/22/2017 Diagnosis 07/18/2018 [facility] Congestive heart failure Active 07/22/2017 Diagnosis 07/18/2018 [facility] Smoker Active 07/22/2017 Diagnosis 07/18/2018 [facility] Substance abuse Active 07/22/2017 Diagnosis 07/18/2018 [facility] Viral illness Active 07/03/2014 08/04/2018 [facility] B12 deficiency Active 06/07/2014 08/04/2018 [facility] Acute ischemic stroke Active 06/06/2014 08/04/2018 [facility] Nausea Active 04/13/2014 08/04/2018 [facility] Weakness of left arm Active 03/21/2014 08/04/2018 [facility] Weakness of left leg Active 03/21/2014 08/04/2018 [facility] Sensory disturbance Active 03/21/2014 08/04/2018 [facility] Palpable abdominal aorta Active 02/19/2014 08/04/2018 [facility] DEV Active 01/15/2014 08/04/2018 [facility] Right arm pain Active 01/15/2014 Problem 04/21/2018 [facility] Right arm weakness Active 01/15/2014 08/04/2018 [facility] Right leg pain Active 01/15/2014 08/04/2018 [facility] Right leg weakness Active 01/15/2014 08/04/2018 [facility] Right arm pain Active 01/15/2014 08/04/2018 [facility] Hypotension Active 01/07/2014 08/04/2018 [facility] Paroxysmal A-fib Active 01/07/2014 08/04/2018 [facility] Polysubstance abuse Active 01/07/2014 08/04/2018 [facility] Noncompliance Active 01/07/2014 08/04/2018 [facility] Tobacco abuse Active 12/20/2013 08/04/2018 [facility] Mood disorder Active 12/17/2013 08/04/2018 [facility] Atrial fibrillation Active 12/17/2013 08/04/2018 [facility] Allergic reaction Active 12/17/2013 08/04/2018 [facility] Right sided weakness Active 12/14/2013 08/04/2018 [facility] Shortness of breath Active 12/10/2013 08/04/2018 [facility] Wound infection s/p R inguinal hernia repair Active 11/20/2013 08/04/2018 [facility] History of inguinal hernia repair Active 11/01/2013 08/04/2018 [facility] S/p right inguinal hernia repair with mesh Active 10/16/2013 08/04/2018 [facility] HLD Active 09/06/2013 08/04/2018 [facility] Constipation Active 09/01/2013 08/04/2018 [facility] Umbilical hernia Active 08/19/2013 08/04/2018 [facility] Incarcerated fat containing umbilical hernia Active 08/18/2013 08/04/2018 [facility] Seizure disorder Active 08/12/2013 08/04/2018 [facility] CAD Active 08/12/2013 08/04/2018 [facility] COPD Active 08/12/2013 08/04/2018 [facility] Smoking Active 08/12/2013 08/04/2018 [facility] Hypertension Active 06/13/2013 08/04/2018 [facility] Presence of stent in coronary artery in patient with coronary artery disease Active 08/04/2018 [facility] Acute on chronic heart failure Active 08/04/2018 [facility] Acute coronary syndrome Active 08/04/2018 [facility] Hyperlipidemia Active 08/04/[address] [facility] [address] segment changes on electrocardiogram Active 08/04/2018 [facility] Precordial pain Active 08/04/2018 [facility] Coronary artery disease, angina presence unspecified, unspecified vessel or lesion type, unspecified whether quinault or transplanted heart Active 08/04/2018 [facility] Chest pain on breathing Active 08/04/2018 [facility] Medications Medication Details Route Status Patient Instructions Ordering Provider Order Date Source NICOTINE One patch per day for 6 weeks Active One patch per day for 6 weeks 07/10/2018 [facility] AMLODIPINE BESYLATE 1 tab by mouth daily Active 1 tab by mouth daily 06/23/2018 [facility] PROMETHAZINE HCL Take 1 tablet By Mouth every 6 hours As Needed nausea or vomiting Active Take 1 tablet By Mouth every 6 hours As Needed nausea or vomiting 06/23/2018 [facility] COUMADIN 5 MG ORAL TABLET Take 2 pills (10 mg) MWF and 1.5 pills SuTRSat Active Take 2 pills (10 mg) MWF and 1.5 pills SuTRSat 06/23/2018 [facility] LISINOPRIL 1 by mouth every day Active 1 by mouth every day 06/23/2018 [facility] QVAR REDIHALER 80 MCG/ACT INHALATION AEROSOL BREATH ACTIVATED 1 inhalation twice a day Active 1 inhalation twice a day 01/24/2018 [facility] ATROVENT HFA 17 MCG/ACT INHALATION AEROSOL SOLUTION 2 inhalations twice a day Active 2 inhalations twice a day 01/24/2018 [facility] PROAIR HFA 108 (90 BASE) MCG/ACT INHALATION AEROSOL SOLUTION 1-2 puffs every 6 hours as needed Active 1-2 puffs every 6 hours as needed 01/24/2018 [facility] Warfarin 10 Mg Tablet Take 1 tablet by mouth daily (warfarin). Oral Inactive 09/04/2017 [facility] Enoxaparin 120 Mg/0.8 Ml Subcutaneous Syringe Lovenox 120 Mg/0.8 Ml Subcutaneous Syringe Inject 0.8 mL under the skin 2 times daily for 5 days. Subcutaneous Inactive 09/04/2017 [facility] warfarin (COUMADIN) 10 mg tablet Take 1 tablet by mouth daily (warfarin). Oral Inactive 09/04/2017 [facility] enoxaparin (LOVENOX) 120 mg/0.8 mL injection Inject 0.8 mL under the skin 2 times daily for 5 days. Subcutaneous Inactive 09/04/2017 [facility] K-TAB 10 MEQ ORAL TABLET EXTENDED RELEASE Take 1 tablet By Mouth Qd Active Take 1 tablet By Mouth Qd 07/22/2017 [facility] OMEPRAZOLE Take 1 tablet By Mouth Qd Active Take 1 tablet By Mouth Qd 07/22/2017 [facility] KEPPRA 1000 MG ORAL TABLET Take 1 tablet by mouth BID Active Take 1 tablet by mouth BID 07/22/2017 [facility] ISOSORBIDE MONONITRATE ER 30 MG ORAL TABLET EXTENDED RELEASE 24 HOUR Take 1 tablet By Mouth Qd Active Take 1 tablet By Mouth Qd 07/22/2017 [facility] DEPAKOTE 500 MG ORAL TABLET DELAYED RELEASE take 1000 mg By Mouth BID Active take 1000 mg By Mouth BID 07/22/2017 [facility] DIPHENHYDRAMINE HCL 1 by mouth 2 times a day As Needed for allergies Active 1 by mouth 2 times a day As Needed for allergies 07/22/2017 [facility] POTASSIUM CHLORIDE ER 10 MEQ ORAL TABLET EXTENDED RELEASE Take 1 tablet by mouth daily Inactive Take 1 tablet by mouth daily 07/22/2017 [facility] METOPROLOL TARTRATE Take one tablet twice a day. Active Take one tablet twice a day. 07/22/2017 [facility] FUROSEMIDE Take one tablet a day. Active Take one tablet a day. 07/22/2017 [facility] ASPIRIN 1 by mouth every day Inactive 1 by mouth every day 07/22/2017 [facility] POTASSIUM CHLORIDE ER 10 MEQ ORAL TABLET EXTENDED RELEASE Take 1 tablet by mouth daily Inactive Take 1 tablet by mouth daily 07/22/2017 [facility] KEPPRA 1000 MG ORAL TABLET Take 1 tablet by mouth twice a day Inactive Take 1 tablet by mouth twice a day 07/22/2017 [facility] DEPAKOTE 500 MG ORAL TABLET DELAYED RELEASE Take 2 tablets twice a day Inactive Take 2 tablets twice a day 07/22/2017 [facility] TERAZOSIN HCL Take 1 tablet by mouth nightly Inactive Take 1 tablet by mouth nightly 07/22/2017 [facility] OMEPRAZOLE 1 by mouth every day Inactive 1 by mouth every day 07/22/2017 [facility] ISOSORBIDE MONONITRATE ER 30 MG ORAL TABLET EXTENDED RELEASE 24 HOUR Take one tablet once a day. Inactive Take one tablet once a day. 07/22/2017 [facility] DIPHENHYDRAMINE HCL 1 by mouth twice a day Inactive 1 by mouth twice a day 07/22/2017 [facility] AMLODIPINE BESYLATE 1 tab by mouth daily Inactive 1 tab by mouth daily 07/22/2017 [facility] LISINOPRIL Take one tablet a day. No Longer Active Take one tablet a day. 07/22/2017 [facility] WARFARIN SODIUM Take one tablet a day. No Longer Active Take one tablet a day. 07/22/2017 [facility] Albuterol Sulfate Hfa 90 McG/Actuation Aerosol Inhaler Inhale 2 Puffs by mouth 4 times daily as needed for Wheezing. Inhalation Active 07/03/2014 [facility] Aspirin 81 Mg Chewable Tablet Chew and swallow 1 tablet by mouth daily. Active 07/03/2014 [facility] Atorvastatin 80 Mg Tablet Take 1 tablet by mouth at bedtime nightly. Oral Active 07/03/2014 [facility] Symbicort 80 McG-4.5 McG/Actuation Hfa Aerosol Inhaler Inhale 2 Puffs by mouth 2 times daily. Inhalation Active 07/03/2014 [facility] Divalproex Er 500 Mg Tablet,Extended Release 24 Hr Depakote Er 500 Mg Tablet,Extended Release Take 2 tablets by mouth at bedtime nightly. Oral Active 07/03/2014 [facility] Isosorbide Mononitrate Er 30 Mg Tablet,Extended Release 24 Hr Imdur 30 Mg Tablet,Extended Release Take 1 tablet by mouth daily. Oral Active 07/03/2014 [facility] Labetalol 200 Mg Tablet Take 1/2 tablets by mouth every 12 hours. Oral Active 07/03/2014 [facility] Levetiracetam 1,000 Mg Tablet Take 1 tablet by mouth every evening. Oral Active 07/03/2014 [facility] Nitroglycerin 0.4 Mg Sublingual Tablet Dissolve 1 tablet under the tongue as needed. Maximum of 3 doses in 15 minutes. If chest pain persists, call 911. Active 07/03/2014 [facility] Warfarin 10 Mg Tablet Take 1 tablet by mouth daily (warfarin). Oral No Longer Active 07/03/2014 [facility] albuterol (VENTOLIN HFA,PROVENTIL HFA,PROAIR HFA) 90 mcg/actuation inhaler Inhale 2 Puffs by mouth 4 times daily as needed for Wheezing. Inhalation Active 07/03/2014 [facility] aspirin (ASPIRIN) 81 mg chewable tablet Chew and swallow 1 tablet by mouth daily. Active 07/03/2014 [facility] atorvastatin (LIPITOR) 80 mg tablet Take 1 tablet by mouth at bedtime nightly. Oral Active 07/03/2014 [facility] budesonide-formoterol (SYMBICORT) 80-4.5 mcg/actuation inhaler Inhale 2 Puffs by mouth 2 times daily. Inhalation Active 07/03/2014 [facility] divalproex (DEPAKOTE ER) 500 mg extended release tablet Take 2 tablets by mouth at bedtime nightly. Oral Active 07/03/2014 [facility] isosorbide mononitrate (IMDUR) 30 mg extended release tablet Take 1 tablet by mouth daily. Oral Active 07/03/2014 [facility] labetalol (NORMODYNE) 200 mg tablet Take 1/2 tablets by mouth every 12 hours. Oral Active 07/03/2014 [facility] Levetiracetam (KEPPRA) 1,000 mg tablet Take 1 tablet by mouth every evening. Oral Active 07/03/2014 [facility] nitroGLYCERIN (NITROSTAT) 0.4 mg sublingual tablet Dissolve 1 tablet under the tongue as needed. Maximum of 3 doses in 15 minutes. If chest pain persists, call 911. Active 07/03/2014 [facility] warfarin (COUMADIN) 10 mg tablet Take 1 tablet by mouth daily (warfarin). Oral No Longer Active 07/03/2014 [facility] Epinephrine 0.3 Mg/0.3 Ml Injection, Auto-Injector Epipen 2-Susan 0.3 Mg/0.3 Ml Injection, Auto-Injector Inject 0.3 mL intramuscularly as needed for Anaphylaxis. Intramuscular Active 01/11/2014 [facility] EPINEPHrine (EPIPEN 2-SUSAN) 0.3 mg/0.3 mL (1:1,000) injection Inject 0.3 mL intramuscularly as needed for Anaphylaxis. Intramuscular Active 01/11/2014 [facility] Epinephrine 0.3 Mg/0.3 Ml Injection, Auto-Injector Epipen 2-Susan 0.3 Mg/0.3 Ml Injection, Auto-Injector Inject 0.3 mL intramuscularly as needed for Anaphylaxis. Intramuscular Active 01/11/2014 [facility] Allergies, Adverse Reactions, Alerts Substance Category Reaction Severity Reaction type Status Date Reported Comments Source Phenytoin Rash, Swelling , Propensity to adverse reactions to drug Active 06/11/2013 [facility] Iodine Rash, Swelling , Propensity to adverse reactions to drug Active 06/11/2013 [facility] Carbamazepine Rash, Swelling , Propensity to adverse reactions to drug Active 06/11/2013 [facility] Povidone-Iodine Rash, Swelling , Propensity to adverse reactions to drug Active 08/12/2013 [facility] Ondansetron Hcl (Pf) Hives Propensity to adverse reactions to drug Active 10/17/2013 [facility] Egg Propensity to adverse reactions to drug Active 01/08/2014 [facility] Iohexol Breathing problems Propensity to adverse reactions to drug Active 02/21/2014 [facility] ZOFRAN drug allergy 07/22/2017 [facility] IODINE drug allergy 07/22/2017 [facility] TEGRETOL drug allergy 07/22/2017 [facility] DILANTIN drug allergy 07/22/2017 [facility] Immun[facility] Immunization Date Given Site Status Last Updated Comments Source Influenza Vaccine 09/02/2016 Not Given Deferred: Patient already had this immunization - during the current flu season [facility] Influenza Vaccine 06/12/2013 completed [facility] PPV 23 Pneumococcal Polysaccaride 06/12/2013 completed [facility] Results Order Name Results Value Reference Range Date Interpretation Comments Source international normalized ratio (INR) 1.1 07/10/2018 [facility] international normalized ratio (INR) 1.0 06/23/2018 [facility] bilirubin, serum, total 0.3 mg/dL 10/29/2017 [facility] eGFR if 86 mL/min/1.73m2 10/29/2017 [facility] urea nitrogen, blood 10 mg/dL 10/29/2017 [facility] eGFR if not 71 mL/min/1.73m2 10/29/2017 [facility] alanine aminotransferase (SGPT), serum 62 U/L 10/29/2017 [facility] aspartate aminotransferase (SGOT), serum 29 U/L 10/29/2017 [facility] creatinine, serum 1.1 mg/dL 10/29/[address] [facility] [address] HEAD W/O CONTRAST IMPRESSION: 1.No intracranial abnormalities. 2.No changes from prior head CTs or with the previous MRIs. 3.Mild supratentorial white matter microvascular ischemic changes described on the MRIs are beyond the scope of resolution for this study. Dictated By: Smooth Monroy MD, 10/23/2017 3:24 AM I have reviewed the study and agree with the findings in this report. Signed By: Reinaldo Hutton MD, 10/23/2017 7:33 AM Exam : Head CT without contrast History: prior cva, left sided weakness Comparison studies: Head CT on 06/06/2014, 04/06/2014. Brain MRIs on 04/28 and 06/07/2014. Technique: Axial scans were obtained from skull base to the vertex. Coronal and sagittal reconstructions obtained from the axial data. IV Contrast: None Complications: None Radiation Dose: Total DLP: 787 mGy*cm. Estimated Effective Dose: DLP x 0.0021 mSv FINDINGS: Scalp/Skull: No abnormalities. Brain sulci: Appropriate for patient's age. Ventricles: Normal in size and configuration.. No hydrocephalus. Extra-axial: No masses or fluid collections. Parenchyma: No abnormal densities. No masses, hemorrhage, acute or chronic cortical vascular insults . Dural sinuses:No abnormal densities. Sellar/Suprasellar region: Intact. Skull base and Craniocervical junction: Intact.. Incidental findings: None. Interface, Rad/Mammog In - 10/23/2017 7:39 AM CDT Exam : Head CT without contrast History: prior cva, left sided weakness Comparison studies: Head CT on 06/06/2014, 04/06/2014. Brain MRIs on 04/28 and 06/07/2014. Technique: Axial scans were obtained from skull base to the vertex. Coronal and sagittal reconstructions obtained from the axial data. IV Contrast: None Complications: None Radiation Dose: Total DLP: 787 mGy*cm. Estimated Effective Dose: DLP x 0.0021 mSv FINDINGS: Scalp/Skull: No abnormalities. Brain sulci: Appropriate for patient's age. Ventricles: Normal in size and configuration.. No hydrocephalus. Extra-axial: No masses or fluid collections. Parenchyma: No abnormal densities. No masses, hemorrhage, acute or chronic cortical vascular insults . Dural sinuses: No abnormal densities. Sellar/Suprasellar region: Intact. Skull base and Craniocervical junction: Intact.. Incidental findings: None. IMPRESSION IMPRESSION: 1. No intracranial abnormalities. 2. No changes from prior head CTs or with the previous MRIs. 3. Mild supratentorial white matter microvascular ischemic changes described on the MRIs are beyond the scope of resolution for this study. Dictated By: Smooth Monroy MD, 10/23/2017 3:24 AM I have reviewed the study and agree with the findings in this report. Signed By: Reinaldo Hutton MD, 10/23/2017 7:33 AM 10/23/2017 [facility] X[facility] CHEST 2 VIEWS IMPRESSION: No acute thoracic abnormality. Dictated By: Smooth Monroy MD, 10/23/2017 1:55 AM I have reviewed the study and agree with the findings in this report. Signed By: Jens Hwang MD, 10/23/2017 3:06 AM EXAMINATION:XRAY CHEST 2 VIEWS, Frontal and lateral INDICATION: chest pain COMPARISON:Two-view chest radiograph on 09/04/2017 FINDINGS: TUBES/LINES:Stable implantable corporate communications manager overlying the anterior mediastinum. LUNGS:No consolidations or edema. PLEURA:No effusions or pneumothorax. HEART/MEDIASTINUM:Normal cardiomediastinal silhouette. MUSCULOSKELETAL:No acute findings. UPPER ABDOMEN: Normal Interface, Rad/Mammog In - 10/23/2017 3:12 AM CDT EXAMINATION: XRAY CHEST 2 VIEWS, Frontal and lateral INDICATION: chest pain COMPARISON: Two-view chest radiograph on 09/04/2017 FINDINGS: TUBES/LINES: Stable implantable corporate communications manager overlying the anterior mediastinum. LUNGS: No consolidations or edema. PLEURA: No effusions or pneumothorax. HEART/MEDIASTINUM: Normal cardiomediastinal silhouette. MUSCULOSKELETAL: No acute findings. UPPER ABDOMEN: Normal IMPRESSION IMPRESSION: No acute thoracic abnormality. Dictated By: Smooth Monroy MD, 10/23/2017 1:55 AM I have reviewed the study and agree with the findings in this report. Signed By: Jens Hwang MD, 10/23/2017 3:06 AM 10/23/2017 [facility] PT/INR PT 14.4 11.8 - 15.0 10/23/2017 [facility] PT/INR INR 1.1 SUGGESTED THERAPEUTIC RANGES: INR 2.0-3.0 for MODERATE INTENSITY ANTICOAGULATION INR 2.5-3.5 for HIGH INTENSITY ANTICOAGULATION 10/23/2017 [facility] TROPONIN I POC Troponin POC 0.00 ng/mL 0 - 0.08 10/23/2017 [facility] HIV-1/HIV-2 ROUTINE SCREENING HIV-1/HIV-2 Negative NEG 10/23/2017 [facility] CBC/DIFF WBC 5.5 K/uL 4.5 - 12 10/23/2017 [facility] CBC/DIFF RBC 4.89 4.60 - 6.20 10/23/2017 [facility] CBC/DIFF Hemoglobin 15.4 g/dL 14 - 18 10/23/2017 [facility] CBC/DIFF Hematocrit 45.1 % 40 - 54 10/23/2017 [facility] CBC/DIFF MCV 92 fL 82 - 92 10/23/2017 [facility] CBC/DIFF MCH 31.5 pg 27 - 31 10/23/2017 [facility] CBC/DIFF MCHC 34.1 g/dL 32 - 36 10/23/2017 [facility] CBC/DIFF RDW 44.6 fL 35.1 - 43.9 10/23/2017 [facility] CBC/DIFF Platelet 173 K/uL 150 - 400 10/23/2017 [facility] CBC/DIFF Mean Platelet Volume 10.2 fL 9.4 - 12.4 10/23/2017 [facility] CBC/DIFF Percent NRBC 0.0 10/23/2017 [facility] CBC/DIFF Absolute NRBC 0.00 10/23/2017 [facility] CBC/DIFF Neutrophil 72.3 % 34 - 67.9 10/23/2017 [facility] CBC/DIFF Lymphocyte 19.8 % 21.8 - 50 10/23/2017 [facility] CBC/DIFF Monocyte 6.2 % 5.3 - 12 10/23/2017 [facility] CBC/DIFF Eosinophil 1.1 % 0.8 - 5 10/23/2017 [facility] CBC/DIFF Basophil 0.2 % 0.2 - 1.2 10/23/2017 [facility] CBC/DIFF Pct Immat Gran 0.4 0.0 - 0.5 10/23/2017 [facility] CBC/DIFF Neutrophil, Abs 3.99 K/uL 1.78 - 5.36 10/23/2017 [facility] CBC/DIFF Lymphocyte, Abs 1.09 K/uL 1.32 - 3.57 10/23/2017 [facility] CBC/DIFF Monocyte, Abs 0.34 K/uL 0.3 - 0.82 10/23/2017 [facility] CBC/DIFF Eosinophil, Abs 0.06 K/uL 0.04 - 0.54 10/23/2017 [facility] CBC/DIFF Basophil, Abs 0.01 K/uL 0.01 - 0.08 10/23/2017 [facility] CBC/DIFF Absol Immat Gran 0.02 K/uL 0 - 0.03 10/23/2017 [facility] CBC/DIFF Lab Interpretation Abnormal 10/23/2017 [facility] 12 LEAD EKG 12 LEAD EKG FOR [facility] Test Date:2017-10-22 Pat Name: MARK Snyderartment: : Gender: MTechnician: [id number] Requested By: Order Number:Reading MD: crystal mccray Measurements IntervalsAxis Rate: 131P:40 [place]: 121QRS:16 QRSD: 93 T:62 QT: 286 QTc:423 Interpretive Statements SINUS TACHYCARDIA MODERATE ST DEPRESSION Electronically Signed On 10-22-17 21:15:40 PRODUCTION WEIGHER by crystal mccray 10/23/2017 [facility] POC CO2 POC 22 mmol/L 21 - 32 10/23/2017 Physician Notified [facility] POC Chloride POC 106 mmol/L 98 - 107 10/23/2017 [facility] POC Potassium POC 3.3 mmol/L 3.5 - 5.1 10/23/2017 [facility] POC Sodium POC 141 mmol/L 136 - 145 10/23/2017 [facility] POC Glucose POC 152 mg/dL 74 - 106 10/23/2017 [facility] POC Urea Nitrogen POC 16 mg/dL 7 - 18 10/23/2017 [facility] POC Creatinine POC 1.2 mg/dL 0.6 - 1.3 10/23/2017 [facility] POC Calcium Ionized POC 1.08 mmol/L 1.15 - 1.29 10/23/2017 [facility] POC Hemoglobin POC 16.0 g/dL 14 - 18 10/23/2017 [facility] POC Hematocrit POC 47.0 % 40 - 54 10/23/2017 [facility] POC GFR, Estimated >60 mL/min/1.73 m2 10/23/2017 [facility] POC GFR, Estim, Afr-Am >60 mL/min/1.73 m2 10/23/2017 [facility] POC Lab Interpretation Abnormal 10/23/[address] [facility] [address] HEAD W/O CONTRAST IMPRESSION: 1.No intracranial abnormalities. 2.No changes from prior head CTs or with the previous MRIs. 3.Mild supratentorial white matter microvascular ischemic changes described on the MRIs are beyond the scope of resolution for this study. Dictated By: Smooth Monroy MD, 10/23/2017 3:24 AM I have reviewed the study and agree with the findings in this report. Signed By: Reinaldo Hutton MD, 10/23/2017 7:33 AM Exam : Head CT without contrast History: prior cva, left sided weakness Comparison studies: Head CT on 06/06/2014, 04/06/2014. Brain MRIs on 04/28 and 06/07/2014. Technique: Axial scans were obtained from skull base to the vertex. Coronal and sagittal reconstructions obtained from the axial data. IV Contrast: None Complications: None Radiation Dose: Total DLP: 787 mGy*cm. Estimated Effective Dose: DLP x 0.0021 mSv FINDINGS: Scalp/Skull: No abnormalities. Brain sulci: Appropriate for patient's age. Ventricles: Normal in size and configuration.. No hydrocephalus. Extra-axial: No masses or fluid collections. Parenchyma: No abnormal densities. No masses, hemorrhage, acute or chronic cortical vascular insults . Dural sinuses:No abnormal densities. Sellar/Suprasellar region: Intact. Skull base and Craniocervical junction: Intact.. Incidental findings: None. Interface, Rad/Mammog In - 10/23/2017 7:39 AM CDT Exam : Head CT without contrast History: prior cva, left sided weakness Comparison studies: Head CT on 06/06/2014, 04/06/2014. Brain MRIs on 04/28 and 06/07/2014. Technique: Axial scans were obtained from skull base to the vertex. Coronal and sagittal reconstructions obtained from the axial data. IV Contrast: None Complications: None Radiation Dose: Total DLP: 787 mGy*cm. Estimated Effective Dose: DLP x 0.0021 mSv FINDINGS: Scalp/Skull: No abnormalities. Brain sulci: Appropriate for patient's age. Ventricles: Normal in size and configuration.. No hydrocephalus. Extra-axial: No masses or fluid collections. Parenchyma: No abnormal densities. No masses, hemorrhage, acute or chronic cortical vascular insults . Dural sinuses: No abnormal densities. Sellar/Suprasellar region: Intact. Skull base and Craniocervical junction: Intact.. Incidental findings: None. IMPRESSION IMPRESSION: 1. No intracranial abnormalities. 2. No changes from prior head CTs or with the previous MRIs. 3. Mild supratentorial white matter microvascular ischemic changes described on the MRIs are beyond the scope of resolution for this study. Dictated By: Smooth Monroy MD, 10/23/2017 3:24 AM I have reviewed the study and agree with the findings in this report. Signed By: Reinaldo Hutton MD, 10/23/2017 7:33 AM 10/23/2017 [facility] TROPONIN I POC Troponin POC 0.00 ng/mL 0 - 0.08 10/22/2017 [facility] PT/INR PT 14.4 Seconds 11.8 - 15.0 10/22/2017 [facility] PT/INR INR 1.1 SUGGESTED THERAPEUTIC RANGES: INR 2.0-3.0 for MODERATE INTENSITY ANTICOAGULATION INR 2.5-3.5 for HIGH INTENSITY ANTICOAGULATION 10/22/2017 [facility] XRAY CHEST 2 VIEWS IMPRESSION: No acute thoracic abnormality. Dictated By: Smooth Monroy MD, 10/23/2017 1:55 AM I have reviewed the study and agree with the findings in this report. Signed By: Jens Hwang MD, 10/23/2017 3:06 AM EXAMINATION:XRAY CHEST 2 VIEWS, Frontal and lateral INDICATION: chest pain COMPARISON:Two-view chest radiograph on 09/04/2017 FINDINGS: TUBES/LINES:Stable implantable corporate communications manager overlying the anterior mediastinum. LUNGS:No consolidations or edema. PLEURA:No effusions or pneumothorax. HEART/MEDIASTINUM:Normal cardiomediastinal silhouette. MUSCULOSKELETAL:No acute findings. UPPER ABDOMEN: Normal Interface, Rad/Mammog In - 10/23/2017 3:12 AM CDT EXAMINATION: XRAY CHEST 2 VIEWS, Frontal and lateral INDICATION: chest pain COMPARISON: Two-view chest radiograph on 09/04/2017 FINDINGS: TUBES/LINES: Stable implantable corporate communications manager overlying the anterior mediastinum. LUNGS: No consolidations or edema. PLEURA: No effusions or pneumothorax. HEART/MEDIASTINUM: Normal cardiomediastinal silhouette. MUSCULOSKELETAL: No acute findings. UPPER ABDOMEN: Normal IMPRESSION IMPRESSION: No acute thoracic abnormality. Dictated By: Smooth Monroy MD, 10/23/2017 1:55 AM I have reviewed the study and agree with the findings in this report. Signed By: Jens Hwang MD, 10/23/2017 3:06 AM 10/22/2017 [facility] CBC/DIFF WBC 5.5 K/uL 4.5 - 12 10/22/2017 [facility] CBC/DIFF RBC 4.89 M/uL 4.60 - 6.20 10/22/2017 [facility] CBC/DIFF Hemoglobin 15.4 g/dL 14 - 18 10/22/2017 [facility] CBC/DIFF Hematocrit 45.1 % 40 - 54 10/22/2017 [facility] CBC/DIFF MCV 92 fL 82 - 92 10/22/2017 [facility] CBC/DIFF MCH 31.5 pg 27 - 31 10/22/2017 [facility] CBC/DIFF MCHC 34.1 g/dL 32 - 36 10/22/2017 [facility] CBC/DIFF RDW 44.6 fL 35.1 - 43.9 10/22/2017 [facility] CBC/DIFF Platelet 173 K/uL 150 - 400 10/22/2017 [facility] CBC/DIFF Mean Platelet Volume 10.2 fL 9.4 - 12.4 10/22/2017 [facility] CBC/DIFF Percent NRBC 0.0 10/22/2017 [facility] CBC/DIFF Absolute NRBC 0.00 10/22/2017 [facility] CBC/DIFF Neutrophil 72.3 % 34 - 67.9 10/22/2017 [facility] CBC/DIFF Lymphocyte 19.8 % 21.8 - 50 10/22/2017 [facility] CBC/DIFF Monocyte 6.2 % 5.3 - 12 10/22/2017 [facility] CBC/DIFF Eosinophil 1.1 % 0.8 - 5 10/22/2017 [facility] CBC/DIFF Basophil 0.2 % 0.2 - 1.2 10/22/2017 [facility] CBC/DIFF Pct Immat Gran 0.4 0.0 - 0.5 10/22/2017 [facility] CBC/DIFF Neutrophil, Abs 3.99 K/uL 1.78 - 5.36 10/22/2017 [facility] CBC/DIFF Lymphocyte, Abs 1.09 K/uL 1.32 - 3.57 10/22/2017 [facility] CBC/DIFF Monocyte, Abs 0.34 K/uL 0.3 - 0.82 10/22/2017 [facility] CBC/DIFF Eosinophil, Abs 0.06 K/uL 0.04 - 0.54 10/22/2017 [facility] CBC/DIFF Basophil, Abs 0.01 K/uL 0.01 - 0.08 10/22/2017 [facility] CBC/DIFF Absol Immat Gran 0.02 K/uL 0 - 0.03 10/22/2017 [facility] CBC/DIFF Lab Interpretation Abnormal 10/22/2017 [facility] HIV-1/HIV-2 ROUTINE SCREENING HIV-1/HIV-2 Negative NEG 10/22/2017 [facility] POC CO2 POC 22 mmol/L 21 - 32 10/22/2017 Physician Notified [facility] POC Chloride POC 106 mmol/L 98 - 107 10/22/2017 [facility] POC Potassium POC 3.3 mmol/L 3.5 - 5.1 10/22/2017 [facility] POC Sodium POC 141 mmol/L 136 - 145 10/22/2017 [facility] POC Glucose POC 152 mg/dL 74 - 106 10/22/2017 [facility] POC Urea Nitrogen POC 16 mg/dL 7 - 18 10/22/2017 [facility] POC Creatinine POC 1.2 mg/dL 0.6 - 1.3 10/22/2017 [facility] POC Calcium Ionized POC 1.08 mmol/L 1.15 - 1.29 10/22/2017 [facility] POC Hemoglobin POC 16.0 g/dL 14 - 18 10/22/2017 [facility] POC Hematocrit POC 47.0 % 40 - 54 10/22/2017 [facility] POC GFR, Estimated >60 mL/min/1.73 m2 10/22/2017 [facility] POC GFR, Estim, Afr-Am >60 mL/min/1.73 m2 10/22/2017 [facility] POC Lab Interpretation Abnormal 10/22/2017 [facility] 12 LEAD EKG 12 LEAD EKG FOR [facility] Test Date:2017-10-22 Pat Name: MARK CABRERAepartment: : Gender: MTechnician: [id number] :1970 Requested By: Order Number:Reading MD: crystal mccray Measurements IntervalsAxis Rate: 131P:40 [place]: 121QRS:16 QRSD: 93 T:62 QT: 286 QTc:423 Interpretive Statements SINUS TACHYCARDIA MODERATE ST DEPRESSION Electronically Signed On 10-22-17 21:15:40 PRODUCTION WEIGHER by crystal mccray 10/22/2017 [facility] 12 LEAD EKG 12 LEAD EKG FOR [facility]

Test Date:2017-09-05
Pat Name: MARK CABRERAepartment:
:
Gender: MTechnician: FM
:1970 Requested By:
Order Number:Lawanda MD: Chong Benito
Measurements
IntervalsAxis
Rate: 82 P:58
[place]: 135QRS:10
QRSD: 102T:66
QT: 366
QTc:428
Interpretive Statements
SINUS RHYTHM
LOW QRS VOLTAGE IN PRECORDIAL LEADS [QRS DEFLECTION < 1.0 mV IN CHEST LEADS]
POOR R WAVE PROGRESSION
NONSPECIFIC T-WAVE ABNORMALITY
ABNORMAL ECG
Electronically Signed On 09-06-17 16:11:41 PRODUCTION WEIGHER by Chong Benito 09/06/2017 [facility] PT/INR/PTT PT 14.1 11.8 - 15.0 09/05/2017 [facility] PT/INR/PTT INR 1.1 SUGGESTED THERAPEUTIC RANGES: INR 2.0-3.0 for MODERATE INTENSITY ANTICOAGULATION INR 2.5-3.5 for HIGH INTENSITY ANTICOAGULATION 09/05/2017 [facility] PT/INR/PTT PTT 37.3 23.6 - 36.4 09/05/2017 [facility] PT/INR/PTT Lab Interpretation Abnormal 09/05/2017 [employer] [facility] PT/INR/PTT PT 14.1 Seconds 11.8 - 15.0 09/05/2017 [facility] PT/INR/PTT INR 1.1 SUGGESTED THERAPEUTIC RANGES: INR 2.0-3.0 for MODERATE INTENSITY ANTICOAGULATION INR 2.5-3.5 for HIGH INTENSITY ANTICOAGULATION 09/05/2017 [facility] PT/INR/PTT PTT 37.3 Seconds 23.6 - 36.4 09/05/2017 [facility] PT/INR/PTT Lab Interpretation Abnormal 09/05/2017 [facility] TROPONIN I Troponin I <0.03 <0.04 ng/mL 09/05/2017 [facility] XRAY CHEST 1 VIEW IMPRESSION: 1.The superior mediastinum is mildly prominent which is likely secondary to technique. Repeat exam with PA and lateral chest radiographs is recommended when feasible. 2.Otherwise no acute thoracic abnormalities. If the report is "FINALIZED" it indicates that the attending/staff radiologist has reviewed the images and agrees with the resident's interpretation. Dictated By: Cynthia Waggoner MD, 09/04/2017 4:18 PM I have reviewed the study and agree with the findings in this report. Signed By: Jens Hwang MD, 09/04/2017 7:35 PM EXAMINATION:XRAY CHEST 1 VIEW INDICATION: Shortness of breath, chest pain COMPARISON:Chest radiograph 09/02/2016 FINDINGS: TUBES and LINES:Stable implantable corporate communications manager projects at level of the anterior mediastinum The exam is partially limited by portable technique. LUNGS:Lungs are well inflated.There are bibasilar atelectasis. There is no evidence of pneumonia or pulmonary edema. PLEURA:No pleural effusion or pneumothorax. HEART AND MEDIASTINUM:The superior cardiomediastinal silhouette is mildly prominent which is likely secondary to technique. BONES AND SOFT TISSUES:No acute osseous lesion.Soft tissues are unremarkable. UPPER ABDOMEN: No free air under the diaphragm. Interface, Rad/Mammog In - 09/04/2017 7:40 PM PRODUCTION WEIGHER EXAMINATION: XRAY CHEST 1 VIEW INDICATION: Shortness of breath, chest pain COMPARISON: Chest radiograph 09/02/2016 FINDINGS: TUBES and LINES: Stable implantable corporate communications manager projects at level of the anterior mediastinum The exam is partially limited by portable technique. LUNGS: Lungs are well inflated. There are bibasilar atelectasis. There is no evidence of pneumonia or pulmonary edema. PLEURA: No pleural effusion or pneumothorax. HEART AND MEDIASTINUM: The superior cardiomediastinal silhouette is mildly prominent which is likely secondary to technique. BONES AND SOFT TISSUES: No acute osseous lesion. Soft tissues are unremarkable. UPPER ABDOMEN: No free air under the diaphragm. IMPRESSION IMPRESSION: 1. The superior mediastinum is mildly prominent which is likely secondary to technique. Repeat exam with PA and lateral chest radiographs is recommended when feasible. 2. Otherwise no acute thoracic abnormalities. If the report is "FINALIZED" it indicates that the attending/staff radiologist has reviewed the images and agrees with the resident's interpretation. Dictated By: Cynthia Waggoner MD, 09/04/2017 4:18 PM I have reviewed the study and agree with the findings in this report. Signed By: Jens Hwang MD, 09/04/2017 7:35 PM 09/05/2017 [facility] 12 LEAD EKG 12 LEAD EKG FOR [facility] Test Date:2017-09-04 Pat Name: MARK Palment: : Gender: MTechnician: [id number] :1970 Requested By: Order Number:Reading MD: Katharina Pond M.D. Measurements IntervalsAxis Rate: 104P:44 [place]: 126QRS:16 QRSD: 89 T:41 QT: 320 QTc:423 Interpretive Statements Sinus Tachycardia Electronically Signed On 09-04-17 16:45:16 PRODUCTION WEIGHER by Katharina Pond M.D. 09/04/2017 [facility] 12 LEAD EKG 12 LEAD EKG FOR [facility] Test Date:2017-09-04 Pat Name: MARK Palment: : Gender: MTechnician: [id number] :1970 Requested By: Order Number:Lawanda HOUGH: Katharina Pond M.D. Measurements IntervalsAxis Rate: 98 P:60 [place]: 132QRS:15 QRSD: 91 T:49 QT: 324 QTc:415 Interpretive Statements SINUS RHYTHM NONSPECIFIC T-WAVE ABNORMALITY Electronically Signed On 09-04-17 16:45:01 PRODUCTION WEIGHER by Katharina Pond M.D. 09/04/2017 [facility] B NATRIURETIC PEPT B Natriuretic Pept 15 pg/mL <101 09/04/2017 [facility] TROPONIN I Troponin I <0.03 <0.04 ng/mL 09/04/2017 [facility] XRAY CHEST 1 VIEW IMPRESSION: 1.The superior mediastinum is mildly prominent which is likely secondary to technique. Repeat exam with PA and lateral chest radiographs is recommended when feasible. 2.Otherwise no acute thoracic abnormalities. If the report is "FINALIZED" it indicates that the attending/staff radiologist has reviewed the images and agrees with the resident's interpretation. Dictated By: Cynthia Waggoner MD, 09/04/2017 4:18 PM I have reviewed the study and agree with the findings in this report. Signed By: Jens Hwang MD, 09/04/2017 7:35 PM EXAMINATION:XRAY CHEST 1 VIEW INDICATION: Shortness of breath, chest pain COMPARISON:Chest radiograph 09/02/2016 FINDINGS: TUBES and LINES:Stable implantable corporate communications manager projects at level of the anterior mediastinum The exam is partially limited by portable technique. LUNGS:Lungs are well inflated.There are bibasilar atelectasis. There is no evidence of pneumonia or pulmonary edema. PLEURA:No pleural effusion or pneumothorax. HEART AND MEDIASTINUM:The superior cardiomediastinal silhouette is mildly prominent which is likely secondary to technique. BONES AND SOFT TISSUES:No acute osseous lesion.Soft tissues are unremarkable. UPPER ABDOMEN: No free air under the diaphragm. Interface, Rad/Mammog In - 09/04/2017 7:40 PM PRODUCTION WEIGHER EXAMINATION: XRAY CHEST 1 VIEW INDICATION: Shortness of breath, chest pain COMPARISON: Chest radiograph 09/02/2016 FINDINGS: TUBES and LINES: Stable implantable corporate communications manager projects at level of the anterior mediastinum The exam is partially limited by portable technique. LUNGS: Lungs are well inflated. There are bibasilar atelectasis. There is no evidence of pneumonia or pulmonary edema. PLEURA: No pleural effusion or pneumothorax. HEART AND MEDIASTINUM: The superior cardiomediastinal silhouette is mildly prominent which is likely secondary to technique. BONES AND SOFT TISSUES: No acute osseous lesion. Soft tissues are unremarkable. UPPER ABDOMEN: No free air under the diaphragm. IMPRESSION IMPRESSION: 1. The superior mediastinum is mildly prominent which is likely secondary to technique. Repeat exam with PA and lateral chest radiographs is recommended when feasible. 2. Otherwise no acute thoracic abnormalities. If the report is "FINALIZED" it indicates that the attending/staff radiologist has reviewed the images and agrees with the resident's interpretation. Dictated By: Cynthia Waggoner MD, 09/04/2017 4:18 PM I have reviewed the study and agree with the findings in this report. Signed By: Jens Hwang MD, 09/04/2017 7:35 PM 09/04/2017 [facility] B NATRIURETIC PEPT B Natriuretic Pept 15 pg/mL <101 09/04/2017 [facility] Vital Signs Vital Sign Value Date Comments Source Diastolic (mm Hg) 91 07/10/2018 [facility] Systolic (mm Hg) 143 07/10/2018 [facility] Height 71 07/10/2018 [facility] Heart Rate 115 07/10/2018 [facility] Respitory Rate 26 07/10/2018 [facility] Temperature Oral (F) 99.4 F 07/10/2018 [facility] Weight 277.60 07/10/2018 [facility] Diastolic (mm Hg) 100 06/23/2018 [facility] Systolic (mm Hg) 152 06/23/2018 [facility] Height 71 06/23/2018 [facility] Heart Rate 105 06/23/2018 [facility] Respitory Rate 27 06/23/2018 [facility] Temperature Oral (F) 99.1 F 06/23/2018 [facility] Weight 278 06/23/2018 [facility] Diastolic (mm Hg) 113 01/20/2018 [facility] Systolic (mm Hg) 161 01/20/2018 [facility] Height 71 01/20/2018 [facility] Heart Rate 93 01/20/2018 [facility] Respitory Rate 17 01/20/2018 [facility] Temperature Oral (F) 98.0 F 01/20/2018 [facility] Weight 270 01/20/2018 [facility] Diastolic (mm Hg) 90 12/30/2017 [facility] Systolic (mm Hg) 140 12/30/2017 [facility] Height 71 12/30/2017 [facility] Heart Rate 112 12/30/2017 [facility] Respitory Rate 16 12/30/2017 [facility] Temperature Oral (F) 99.0 F 12/30/2017 [facility] Weight 271.20 12/30/2017 [facility] Diastolic (mm Hg) 119 11/02/2017 [facility] Systolic (mm Hg) 164 11/02/2017 [facility] Height 71 11/02/2017 [facility] Heart Rate 78 11/02/2017 [facility] Respitory Rate 20 11/02/2017 [facility] Temperature Oral (F) 98.0 F 11/02/2017 [facility] Weight 274.60 11/02/2017 [facility] Systolic (mm Hg) 125 10/23/2017 [facility] Diastolic (mm Hg) 68 10/23/2017 [facility] Heart Rate 77 10/23/2017 [facility] Temperature Oral (F) 37.17 [place] 10/23/2017 [facility] Respitory Rate 16 10/23/2017 [facility] Height 177.8 cm 09/04/2017 [facility] Weight 126.554 09/04/2017 [facility] BMI Calculated 40.03 09/04/2017 [facility] Diastolic (mm Hg) 114 07/22/[address] [facility] Systolic (mm Hg) 165 07/22/2017 [facility] Height 71 07/22/2017 [facility] Heart Rate 94 07/22/2017 [facility] Respitory Rate 20 07/22/2017 [facility] Temperature Oral (F) 98.2 F 07/22/2017 [facility] Weight 279 07/22/2017 [facility] Location Location Details Encounter Type Encounter Number Reason For Visit Attending Provider ADM Date DC Date Status Source [facility] New Patient Comprehensive - [id number] Polina Allen MD 07/25/2017 [facility] Hospital Encounter [id number] Braeden Ojeda MD 09/04/2017 09/05/2017 [facility] ([id number] Emergency [id number] Kush Haas MD 09/05/2017 09/05/2017 [facility] BT Emergency [id number] Darrel Chicas MD 10/23/2017 10/23/2017 [facility] Est Patient Exp Problem - 30440 [id number] Nora Lyon MD (res) 11/02/2017 [facility] Est Patient Detailed - 89142 [id number] Nora Lyon MD (res) 12/30/2017 [facility] Est Patient Exp Problem - 43486 [id number] Nora Lyon MD R2 01/20/2018 [facility] Est Patient Exp Problem - 89092 [id number] Nora Lyon MD R2 06/23/2018 [facility] Est Patient Exp Problem - 92569 [id number] Nora Lyon MD R2 07/10/[address] [facility] Procedures Procedure Code Date Perfomer Comments Source Prothrombin Time (INR) - In House 41100 07/10/2018 Camron HOUGH R2 [facility] Prothrombin Time (INR) - In House 50712 06/23/2018 [address] HEAD W/O CONTRAST 40104 10/23/2017 [facility] TROPONIN I POC 71475 [facility]/23[facility] 58563 10/23/2017 [facility] XRAY CHEST 2 VIEWS 58389 10/23/2017 [facility] CBC/DIFF 22137 10/23/2017 [facility] HIV-1/HIV-2 ROUTINE SCREENING 96211 10/23/2017 [facility] BMP POC 80818 10/23/2017 [facility] TROPONIN I POC 84262 10/23/2017 [facility] 12 LEAD EKG 58413 10/23/2017 [facility] 12 LEAD EKG 64956 09/06/2017 [facility] BMP POC 84587 09/06/2017 [facility] TROPONIN I POC 30639 09/06/2017 [facility] PT/INR/PTT 43403 09/06/2017 [facility] XRAY CHEST 2 VIEWS 83972 09/05/2017 [facility] TROPONIN I POC 31517 [facility] 01551 [facility]53[facility] 33642 09/05/2017 [facility] TROPONIN I POC 50913 [facility]/05[facility] 1 VIEW 29425 09/05/2017 [facility] BMP POC 97067 09/05/2017 [facility] CBC/DIFF 81343 09/05/2017 [facility] B NATRIURETIC PEPT 64321 09/05/2017 [facility] TROPONIN I 34861 09/05/2017 [facility] PT/INR/PTT 97154 09/05/2017 [facility] 12 LEAD EKG 49208 09/05/2017 [facility]
--- OUTSIDE RECORDS SUMMARY | 2018-09-08 11:26 | XMS REPORT | Clinical Summary ---
Author Author [facility] Organization [facility] Address Unknown Phone Unavailable Care Team Providers Care Armor Senior Sergeant Name Role Phone Maya Pantoja [facility] 39 Unavailable Saniya Ray ASSOCIATE [employer] 39 Unavailable Saritha Vann ASSOCIATE [employer] 39 Unavailable Gretchen Moyer RN 30 Unavailable Allergies Active Allergy Reactions Severity Noted Date Comments Povidone-Iodine Rash, Swelling 08/12/2013 Phenytoin Rash, Swelling 06/11/2013 Egg 01/08/2014 Throat closing as per patient Iodine Rash, Swelling 06/11/2013 Iohexol Breathing problems 02/21/2014 Patient experienced trouble breathing when given iohexol on 01/11/2014. Carbamazepine Rash, Swelling 06/11/2013 Ondansetron Hcl (Pf) Hives 10/17/2013 Current Medications Prescription Sig. Disp. Refills Start End Date Status Date EPINEPHrine (EPIPEN Inject 0.3 mL 1 Each 0 01/12/20 Active 2-SUSAN) 0.3 mg/0.3 mL intramuscularly as needed 14 (1:1,000) for Anaphylaxis. injectionIndications: Allergic reaction albuterol (VENTOLIN Inhale 2 Puffs by mouth 4 20.1 g 3 07/03/20 Active HFA,PROVENTIL HFA,PROAIR times daily as needed for 14 HFA) 90 mcg/actuation Wheezing. inhalerIndications: COPD (chronic obstructive pulmonary disease) aspirin (ASPIRIN) 81 mg Chew and swallow 1 tablet 90 tablet 3 07/03/20 Active chewable by mouth daily. 14 tabletIndications: CAD (coronary artery disease) atorvastatin (LIPITOR) 80 Take 1 tablet by mouth at 30 tablet 3 07/03/20 Active mg tabletIndications: CAD bedtime nightly. 14 (coronary artery disease), HLD (hyperlipidemia) budesonide-formoterol Inhale 2 Puffs by mouth 2 30.6 g 3 07/03/20 Active (SYMBICORT) 80-4.5 times daily. 14 mcg/actuation inhalerIndications: COPD (chronic obstructive pulmonary disease) divalproex (DEPAKOTE ER) Take 2 tablets by mouth 60 tablet 3 07/03/20 Active 500 mg extended release at bedtime nightly. 14 tabletIndications: Seizure disorder isosorbide mononitrate Take 1 tablet by mouth 30 tablet 1 07/03/20 Active (IMDUR) 30 mg extended daily. 14 release tabletIndications: Chest pain, CAD (coronary artery disease), Atrial fibrillation, COPD (chronic obstructive pulmonary disease), Hypertension, Seizure disorder, Smoking, Inguinal hernia, Polysubstance abuse, Noncompliance labetalol (NORMODYNE) 200 Take 1/2 tablets by mouth 30 tablet 3 07/03/20 Active mg tabletIndications: every 12 hours. 14 Hypertension Levetiracetam (KEPPRA) Take 1 tablet by mouth 30 tablet 5 07/03/20 Active 1,000 mg every evening. 14 tabletIndications: Seizure disorder nitroGLYCERIN (NITROSTAT) Dissolve 1 tablet under 100 tablet 3 07/03/20 Active 0.4 mg sublingual the tongue as needed. 14 tabletIndications: Chest Maximum of 3 doses in 15 pain minutes. If chest pain persists, call 911. warfarin (COUMADIN) 10 mg Take 1 tablet by mouth 15 tablet 0 09/04/19 Active tabletIndications: daily (warfarin). 18 Paroxysmal A-fib warfarin (COUMADIN) 10 mg Take 1 tablet by mouth 15 tablet 0 07/03/20 09/04/19 Discontin tabletIndications: daily (warfarin). 14 18 ued Paroxysmal A-fib warfarin (COUMADIN) 10 mg Take 1 tablet by mouth 15 tablet 0 09/04/19 09/04/19 Discontin tabletIndications: daily (warfarin). 18 18 ued Paroxysmal A-fib enoxaparin (LOVENOX) 120 Inject 0.8 mL under the 8 mL 0 09/04/19 09/04/19 Discontin mg/0.8 mL skin 2 times daily for 5 18 18 ued injectionIndications: days. Chest pain on breathing enoxaparin (LOVENOX) 120 Inject 0.8 mL under the 8 mL 0 09/04/19 09/09/19 mg/0.8 mL skin 2 times daily for 12 30 17 injectionIndications: days. Chest pain on breathing Active Problems Problem Noted Date History of pulmonary embolus (PE) 10/23/2017 H/O: CVA (cerebrovascular accident) 10/23/2017 Cocaine abuse 10/23/2017 Chest pain 09/04/2017 Viral illness 07/03/2014 B12 deficiency 06/07/2014 Acute ischemic stroke 06/06/2014 Nausea 04/13/2014 Weakness of left arm 03/21/2014 Weakness of left leg 03/21/2014 Sensory disturbance 03/21/2014 Palpable abdominal aorta 02/19/2014 DEV (acute kidney injury) 01/15/2014 Right arm pain 01/15/2014 Right arm weakness 01/15/2014 Right leg pain 01/15/2014 Right leg weakness 01/15/2014 Hypotension 01/07/2014 Paroxysmal A-fib 01/07/2014 Polysubstance abuse 01/07/2014 Noncompliance 01/07/2014 Tobacco abuse 12/20/2013 Mood disorder 12/17/2013 Atrial fibrillation 12/17/2013 Allergic reaction 12/17/2013 Right sided weakness 12/14/2013 Shortness of breath 12/10/2013 Wound infection s/p R inguinal hernia repair 11/20/2013 History of inguinal hernia repair 11/01/2013 S/p right inguinal hernia repair with mesh (10/22) 10/16/2013 HLD (hyperlipidemia) 09/06/2013 Constipation 09/01/2013 Umbilical hernia 08/19/2013 Incarcerated fat containing umbilical hernia 08/18/2013 Seizure disorder 08/12/2013 CAD (coronary artery disease) 08/12/2013 Overview: Cath 08/2012 at [facility] 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 COPD (chronic obstructive pulmonary disease) 08/12/2013 Smoking 08/12/2013 Hypertension 06/13/2013 Presence of stent in coronary artery in patient with coronary artery disease Acute on chronic heart failure Acute coronary syndrome Hyperlipidemia ST segment changes on electrocardiogram Encounters Date Type Specialty Care Team Description 10/22/2017 Emergency Emergency Medicine Darrel Chicas MD Precordial pain (Primary - Cody Mann MD Dx); 10/23/2017 Coronary artery disease, angina presence unspecified, unspecified vessel or lesion type, unspecified whether [place] or transplanted heart 09/05/2017 Emergency Emergency Medicine Kush Haas MD Chest pain on breathing (Primary Dx) 09/04/2017 Hospital Emergency Medicine Braeden Ojeda MD Chest pain on breathing Encounter Jose Alberto Anna MD (Primary Dx); Nausea; Paroxysmal A-fib after 07/07/2017 Immunizations Name Dates Previously Given Next Due Influenza Vaccine 09/02/2016 (Deferred: Patient already had this immunization - during the current flu season ), 06/12/2013 PPV 23 Pneumococcal 06/12/2013 Polysaccaride Family History Medical History Relation Name Comments Diabetes Maternal Grandfather Heart Maternal Grandfather Hypertension Maternal Grandfather Diabetes Maternal Grandmother Heart Maternal Grandmother Hypertension Maternal Grandmother Diabetes Mother Heart Mother Hypertension Mother Diabetes Sister Hypertension Sister Other Sister Relation Name Status Comments Maternal Grandfather Maternal Grandmother Mother Sister Social History Tobacco Use Types Packs/Day Years Used Date Current Every Day Smoker Cigarettes 0.5 25 Smokeless Tobacco: Never Used Tobacco Cessation: Counseling Given: Yes Alcohol Use Drinks/Week oz/Week Comments No Sex Assigned at Date Recorded Not on file Last Filed Vital Signs Vital Sign Reading Time Taken Blood Pressure 125/68 10/23/2017 3:17 AM CDT Pulse 77 10/23/2017 3:17 AM CDT Temperature 37.2 C (98.9 F) 10/23/2017 3:17 AM CDT Respiratory Rate 16 10/23/2017 3:17 AM CDT Oxygen Saturation 94% 10/23/2017 3:17 AM CDT Inhaled Oxygen - - Concentration Weight 126.6 kg (279 lb) 09/04/2017 2:25 PM VENTILATING EXPERT Height 177.8 cm (5' 10") 09/04/2017 2:25 PM VENTILATING EXPERT Body Mass Index 40.03 09/04/2017 2:25 PM VENTILATING EXPERT Plan of Treatment Health Maintenance Due Date Last Done Comments CORONARY ARTERY DISEASE 09/03/2017 09/03/2016, 06/07/2014, 04/06/2014, AGE 18 AND UP Additional history exists IMM Influenza Seasonal 05/15/2018 Oct to October (>/=19 yrs) Procedures Procedure Name Priority Date/Time Associated Diagnosis Comments CT HEAD W/O CONTRAST STAT 10/23/2017 Results for this 12:29 AM VENTILATING EXPERT procedure are in the results section. TROPONIN I POC Routine 10/22/2017 Results for this 10:36 PM VENTILATING EXPERT procedure are in the results section. PT/INR STAT 10/22/2017 Results for this 10:27 PM VENTILATING EXPERT procedure are in the results section. XRAY CHEST 2 VIEWS STAT 10/22/2017 Results for this 9:12 PM VENTILATING EXPERT procedure are in the results section. HIV-1/HIV-2 ROUTINE STAT 10/22/2017 Results for this SCREENING 9:00 PM VENTILATING EXPERT procedure are in the results section. CBC/DIFF STAT 10/22/2017 Results for this 9:00 PM VENTILATING EXPERT procedure are in the results section. BMP POC Routine 10/22/2017 Results for this 7:59 PM VENTILATING EXPERT procedure are in the results section. TROPONIN I POC Routine 10/22/2017 Results for this 7:57 PM VENTILATING EXPERT procedure are in the results section. 12 LEAD EKG STAT 10/22/2017 Results for this 7:48 PM VENTILATING EXPERT procedure are in the results section. 12 LEAD EKG Routine 09/05/2017 Results for this 1:47 PM VENTILATING EXPERT procedure are in the results section. BMP POC Routine 09/05/2017 Results for this 12:37 PM VENTILATING EXPERT procedure are in the results section. TROPONIN I POC Routine 09/05/2017 Results for this 12:35 PM VENTILATING EXPERT procedure are in the results section. PT/INR/PTT STAT 09/05/2017 Results for this 12:18 PM VENTILATING EXPERT procedure are in the results section. XRAY CHEST 2 VIEWS STAT 09/04/2017 Chest pain on breathing Results for this 7:45 PM VENTILATING EXPERT procedure are in the results section. TROPONIN I POC Routine 09/04/2017 Results for this 6:12 PM VENTILATING EXPERT procedure are in the results section. TROPONIN I Routine 09/04/2017 Results for this 6:10 PM VENTILATING EXPERT procedure are in the results section. HIV-1/HIV-2 ROUTINE STAT 09/04/2017 Results for this SCREENING 6:10 PM VENTILATING EXPERT procedure are in the results section. 12 LEAD EKG Routine 09/04/2017 Results for this 2:23 PM VENTILATING EXPERT procedure are in the results section. TROPONIN I POC Routine 09/04/2017 Results for this 2:19 PM VENTILATING EXPERT procedure are in the results section. XRAY CHEST 1 VIEW STAT 09/04/2017 Chest pain on breathing Results for this 2:15 PM VENTILATING EXPERT procedure are in the results section. BMP POC Routine 09/04/2017 Results for this 2:11 PM VENTILATING EXPERT procedure are in the results section. PT/INR/PTT STAT 09/04/2017 Results for this 2:08 PM VENTILATING EXPERT procedure are in the results section. TROPONIN I STAT 09/04/2017 Results for this 2:08 PM VENTILATING EXPERT procedure are in the results section. B NATRIURETIC PEPT STAT 09/04/2017 Results for this 2:08 PM VENTILATING EXPERT procedure are in the results section. CBC/DIFF STAT 09/04/2017 Results for this 2:08 PM VENTILATING EXPERT procedure are in the results section. 12 LEAD EKG Routine 09/04/2017 Results for this 1:48 PM VENTILATING EXPERT procedure are in the results section. after 07/07/2017 Results * CT HEAD W/O CONTRAST (10/23/2017 12:29 AM) Impressions Performed At IMPRESSION: SMS 1.No intracranial abnormalities. 2.No changes from prior head CTs or with the previous MRIs. 3.Mild supratentorial white matter microvascular ischemic changes described on the MRIs are beyond the scope of resolution for this study. Dictated By: Smooth Monroy MD, 10/23/2017 3:24 AM I have reviewed the study and agree with the findings in this report. Signed By: Reinaldo Hutton MD, 10/23/2017 7:33 AM Narrative Performed At Exam : Head CT without contrast SMS History: prior cva, left sided weakness Comparison [...] and Craniocervical junction: Intact.. Incidental findings: None. Procedure Note Interface, Rad/Mammog In - 10/23/2017 7:39 AM [...] By: Reinaldo Hutton MD, 10/23/2017 7:33 AM Performing Organization Address [facility] [place] Phone Number SMS * TROPONIN I POC (10/22/2017 10:36 PM) Only the most recent of 5 results within the time period is included. Troponin POC 0.00 0.00 - 0.08 ng/mL BT MAIN-STATION 1 Performing Organization Address [facility] [place] Phone Number MISYS BT MAIN-STATION 1 * PT/INR (10/22/2017 10:27 PM) PT 14.4 11.8 - 15.0 Seconds BT MAIN-STATION 3 INR 1.1 BT MAIN-STATION 3 SUGGESTED THERAPEUTIC RANGES: INR 2.0-3.0 for MODERATE INTENSITY ANTICOAGULATION INR 2.5-3.5 for HIGH INTENSITY ANTICOAGULATION Specimen Blood Performing Organization Address [facility] [place] Phone Number MISYS BT MAIN-STATION 3 * XRAY CHEST 2 VIEWS (10/22/2017 9:12 PM) Only the most recent of 2 results within the time period is included. Impressions Performed At IMPRESSION: SMS No acute thoracic abnormality. Dictated By: Smooth Monroy MD, 10/23/2017 1:55 AM I have reviewed the study and agree with the findings in this report. Signed By: Jens Hwang MD, 10/23/2017 3:06 AM Narrative Performed At EXAMINATION:XRAY CHEST 2 VIEWS, Frontal and lateral SMS INDICATION: chest pain COMPARISON:Two-view chest radiograph on 09/04/2017 FINDINGS: TUBES/LINES:Stable implantable cardiac catheterization technologist overlying the anterior mediastinum. LUNGS:No consolidations or edema. PLEURA:No effusions or pneumothorax. HEART/MEDIASTINUM:Normal cardiomediastinal silhouette. MUSCULOSKELETAL:No acute findings. UPPER ABDOMEN: Normal Procedure Note Interface, Rad/Mammog In - 10/23/2017 3:12 AM CDT EXAMINATION: XRAY CHEST 2 VIEWS, Frontal and lateral INDICATION: chest pain COMPARISON: Two-view chest radiograph on 09/04/2017 FINDINGS: TUBES/LINES: Stable implantable cardiac catheterization technologist overlying the anterior mediastinum. LUNGS: No consolidations or edema. PLEURA: No effusions or pneumothorax. HEART/MEDIASTINUM: Normal cardiomediastinal silhouette. MUSCULOSKELETAL: No acute findings. UPPER ABDOMEN: Normal IMPRESSION IMPRESSION: No acute thoracic abnormality. Dictated By: Smooth Monroy MD, 10/23/2017 1:55 AM I have reviewed the study and agree with the findings in this report. Signed By: Jens Hwang MD, 10/23/2017 3:06 AM Performing Organization Address City/State/Zipcode Phone Number SMS * HIV-1/HIV-2 ROUTINE SCREENING (10/22/2017 9:00 PM) Only the most recent of 2 results within the time period is included. HIV-1/HIV-2 Negative NEG BT MAIN-STATION 3 Performing Organization Address City/State/Zipcode Phone Number MISYS BT MAIN-STATION 3 * CBC/DIFF (10/22/2017 9:00 PM) Only the most recent of 2 results within the time period is included. WBC 5.5 4.5 - 12.0 K/uL BT MAIN-STATION 2 RBC 4.89 4.60 - 6.20 M/uL BT MAIN-STATION 2 Hemoglobin 15.4 14.0 - 18.0 g/dL BT MAIN-STATION 2 Hematocrit 45.1 40.0 - 54.0 % BT MAIN-STATION 2 MCV 92 82 - 92 fL BT MAIN-STATION 2 MCH 31.5 (H) 27.0 - 31.0 pg BT MAIN-STATION 2 MCHC 34.1 32.0 - 36.0 g/dL BT MAIN-STATION 2 RDW 44.6 (H) 35.1 - 43.9 fL BT MAIN-STATION 2 Platelet 173 150 - 400 K/uL BT MAIN-STATION 2 Mean Platelet Volume 10.2 9.4 - 12.4 fL BT MAIN-STATION 2 Percent NRBC 0.0 BT MAIN-STATION 2 Absolute NRBC 0.00 BT MAIN-STATION 2 Neutrophil 72.3 (H) 34.0 - 67.9 % BT MAIN-STATION 2 Lymphocyte 19.8 (L) 21.8 - 50.0 % BT MAIN-STATION 2 Monocyte 6.2 5.3 - 12.0 % BT MAIN-STATION 2 Eosinophil 1.1 0.8 - 5.0 % BT MAIN-STATION 2 Basophil 0.2 0.2 - 1.2 % BT MAIN-STATION 2 Pct Immat Gran 0.4 0.0 - 0.5 BT MAIN-STATION 2 Neutrophil, Abs 3.99 1.78 - 5.36 K/uL BT MAIN-STATION 2 Lymphocyte, Abs 1.09 (L) 1.32 - 3.57 K/uL BT MAIN-STATION 2 Monocyte, Abs 0.34 0.30 - 0.82 K/uL BT MAIN-STATION 2 Eosinophil, Abs 0.06 0.04 - 0.54 K/uL BT MAIN-STATION 2 Basophil, Abs 0.01 0.01 - 0.08 K/uL BT MAIN-STATION 2 Absol Immat Gran 0.02 0.00 - 0.03 K/uL BT MAIN-STATION 2 Specimen Blood Performing Organization Address City/State/Zipcode Phone Number MISYS BT MAIN-STATION 2 * BMP POC (10/22/2017 7:59 PM) Only the most recent of 3 results within the time period is included. CO2 POC 22Comment: Physician Notified 21 - 32 mmol/L BT MAIN-STATION 1 Chloride POC 106 98 - 107 mmol/L BT MAIN-STATION 1 Potassium POC 3.3 (L) 3.50 - 5.10 mmol/L BT MAIN-STATION 1 Sodium POC 141 136 - 145 mmol/L BT MAIN-STATION 1 Glucose POC 152 (H) 74 - 106 mg/dL BT MAIN-STATION 1 Urea Nitrogen POC 16 7 - 18 mg/dL BT MAIN-STATION 1 Creatinine POC 1.2 0.6 - 1.3 mg/dL BT MAIN-STATION 1 Calcium Ionized POC 1.08 (L) 1.15 - 1.29 mmol/L BT MAIN-STATION 1 Hemoglobin POC 16.0 14.0 - 18.0 g/dL BT MAIN-STATION 1 Hematocrit POC 47.0 40.0 - 54.0 % BT MAIN-STATION 1 GFR, Estimated >60 mL/min/1.73 m2 BT MAIN-STATION 1 GFR, Estim, Afr-Am >60 mL/min/1.73 m2 BT MAIN-STATION 1 Performing Organization Address City/[facility] [place] Phone Number MISYS BT MAIN-STATION 1 * 12 LEAD EKG (10/22/2017 7:48 PM) 12 LEAD EKG FOR [facility] Test Date:2017-10-22 Pat Name: MARK CABRERA epartment: Room: Gender: M Residential Team Leader: [id number] :[birth year] Requested By: Order Number: Alicia cr MD: crystal mccray Measurements Intervals [place] Rate: 131 P: 40 KS: 121 QRS: 16 QRSD: 93 T:62 QT: 286 QTc:423 Interpretive Statements SINUS TACHYCARDIA MODERATE ST DEPRESSION Electronically Signed On 10-22-17 21:15:40 VENTILATING EXPERT by crystal mccray Performing Organization Address [facility] [place] Phone Number [facility] * 12 LEAD EKG (09/05/2017 1:47 PM) 12 [facility]:2017[facility]05 Pat Name: MARK CABRERA epartment: Room: Gender: M Residential Team Leader: FM :[birth year] Requested By: Order Number: Alicia cr MD: Chong Benito Measurements Intervals [place] Rate: 82 P:58 KS: 135 QRS: 10 QRSD: 102 T: 66 QT: 366 QTc:428 Interpretive Statements SINUS RHYTHM LOW QRS VOLTAGE IN PRECORDIAL LEADS [QRS DEFLECTION < 1.0 mV IN CHEST LEADS] POOR R WAVE PROGRESSION NONSPECIFIC T-WAVE ABNORMALITY ABNORMAL ECG Electronically Signed On 09-06-17 16:11:41 VENTILATING EXPERT by Chong Benito Performing Organization Address [facility] Phone Number SMS * PT/INR/PTT (09/05/2017 12:18 PM) Only the most recent of 2 results within the time period is included. PT 14.1 11.8 - 15.0 Seconds [facility] MAIN-STATION 4 INR 1.1 LB MAIN-STATION 4 SUGGESTED THERAPEUTIC RANGES: INR 2.0-3.0 for MODERATE INTENSITY ANTICOAGULATION INR 2.5-3.5 for HIGH INTENSITY ANTICOAGULATION PTT 37.3 (H) 23.6 - 36.4 Seconds LB MAIN-STATION 4 Specimen Blood Performing Organization Address [facility] [place] [facility] Phone Number MISYS [facility] MAIN-STATION 4 * TROPONIN I (09/04/2017 6:10 PM) Only the most recent of 2 results within the time period is included. Troponin I <0.03 <0.04 ng/mL BT MAIN-STATION 3 Performing Organization Address [facility] Phone Number MISYS BT MAIN-STATION 3 * 12 LEAD EKG (09/04/2017 2:23 PM) 12 LEAD EKG FOR [facility] Test Date:2017-09-04 Pat Name: MARK CABRERA epartment: Room: Gender: M Residential Team Leader: [id number] :[id number] 6-27 Requested By: Order Number: R tayo HOUGH: Katharina Pond M.D. Measurements Intervals [place] Rate: 104 P: 44 KS: 126 QRS: 16 QRSD: 89 T:41 QT: 320 QTc:423 Interpretive Statements Sinus Tachycardia Electronically Signed On 09-04-17 16:45:16 VENTILATING EXPERT by Katharina Pond M.D. Performing Organization Address [facility] Phone Number SMS * XRAY CHEST 1 VIEW (09/04/2017 2:15 PM) Impressions Performed At IMPRESSION: [facility] 1.The superior mediastinum is mildly prominent which [...] By: Jens Hwang MD, 09/04/2017 7:35 PM Narrative Performed At EXAMINATION:XRAY CHEST 1 VIEW SMS INDICATION: Shortness of breath, chest pain COMPARISON:Chest radiograph 09/02/2016 FINDINGS: TUBES and LINES:Stable implantable cardiac catheterization technologist projects at level of the anterior mediastinum [...] ABDOMEN: No free air under the diaphragm. Procedure Note Interface, Rad/Mammog In - 09/04/2017 7:40 PM VENTILATING EXPERT EXAMINATION: XRAY CHEST 1 VIEW INDICATION: Shortness of breath, chest pain COMPARISON: Chest radiograph 09/02/2016 FINDINGS: TUBES and LINES: Stable implantable cardiac catheterization technologist projects at level of the anterior mediastinum [...] By: Jens Hwang MD, 09/04/2017 7:35 PM Performing Organization Address City/[facility] [place] [facility] Phone Number SMS * B NATRIURETIC PEPT (09/04/2017 2:08 PM) B Natriuretic Pept 15 <101 pg/mL BT MAIN-STATION 3 Specimen Blood Performing Organization Address [facility] [place] Phone Number MISYS BT MAIN-STATION 3 * 12 LEAD EKG (09/04/2017 1:48 PM) 12 LEAD EKG FOR [facility] Test Date:2017-09-04 Pat Name: MARK CABRERA epartment: Room: Gender: Residential Team Leader: [id number] :1970-0 6-27 Requested By: Order Number: Alicia cr MD: Katharina Pond M.D. Measurements Intervals [place] Rate: 98 P:60 KS: 132 QRS: 15 QRSD: 91 T:49 QT: 324 QTc:415 Interpretive Statements SINUS RHYTHM NONSPECIFIC T-WAVE ABNORMALITY Electronically Signed On 09-04-17 16:45:01 VENTILATING EXPERT by Katharina Pond M.D. Performing Organization Address City/[facility] [place] Phone Number [facility] after 07/07/2017
--- OUTSIDE RECORDS SUMMARY | 2018-09-08 11:27 | XMS REPORT | Clinical Summary ---
Author Author [facility] Organization [facility] Address Unknown Phone Unavailable Care Team Providers Care Handy Man Name Role Phone Maya Pantoja [facility] 39 Unavailable Saniya Ray CARD FIXER 39 Unavailable Saritha Vann CARD FIXER 39 Unavailable Gretchen Moyer RN 30 Unavailable [...] artery disease) 08/12/2013 Overview: Cath 08/2012 at [facility] showed nonobstructive CAD and anomalous [...] unspecified vessel or lesion type, unspecified whether pit river or transplanted heart 09/05/2017 Emergency Emergency Medicine Kush Haas MD Chest pain on breathing (Primary Dx) 09/04/2017 Hospital Emergency Medicine Braeden Ojeda MD Chest pain on breathing Encounter Jose Alberto Anna MD (Primary Dx); Nausea; Paroxysmal A-fib after 04/20/2017 Immunizations Name Dates Previously Given Next Due [...] 126.6 kg (279 lb) 09/04/2017 2:25 PM [employer] Height 177.8 cm (5' 10") 09/04/2017 2:25 PM [employer] Body Mass Index 40.03 09/04/2017 2:25 PM [employer] Plan of Treatment Health Maintenance Due Date Last Done Comments CORONARY ARTERY DISEASE 09/03/2017 09/03/2016, 06/07/2014, 04/06/2014, AGE 18 AND UP Additional history exists IMM Influenza Seasonal 05/15/2018 Oct to October (>/=19 yrs) Procedures Procedure Name Priority Date/Time Associated Diagnosis Comments CT HEAD W/O CONTRAST STAT 10/23/2017 Results for this 12:29 AM [employer] procedure are in the results section. TROPONIN I POC Routine 10/22/2017 Results for this 10:36 PM [employer] procedure are in the results section. PT/INR STAT 10/22/2017 Results for this 10:27 PM [employer] procedure are in the results section. XRAY CHEST 2 VIEWS STAT 10/22/2017 Results for this 9:12 PM [employer] procedure are in the results section. HIV-1/HIV-2 ROUTINE STAT 10/22/2017 Results for this SCREENING 9:00 PM [employer] procedure are in the results section. CBC/DIFF STAT 10/22/2017 Results for this 9:00 PM [employer] procedure are in the results section. BMP POC Routine 10/22/2017 Results for this 7:59 PM [employer] procedure are in the results section. TROPONIN I POC Routine 10/22/2017 Results for this 7:57 PM [employer] procedure are in the results section. 12 LEAD EKG STAT 10/22/2017 Results for this 7:48 PM [employer] procedure are in the results section. 12 LEAD EKG Routine 09/05/2017 Results for this 1:47 PM [employer] procedure are in the results section. BMP POC Routine 09/05/2017 Results for this 12:37 PM [employer] procedure are in the results section. TROPONIN I POC Routine 09/05/2017 Results for this 12:35 PM [employer] procedure are in the results section. PT/INR/PTT STAT 09/05/2017 Results for this 12:18 PM [employer] procedure are in the results section. XRAY CHEST 2 VIEWS STAT 09/04/2017 Chest pain on breathing Results for this 7:45 PM [employer] procedure are in the results section. TROPONIN I POC Routine 09/04/2017 Results for this 6:12 PM [employer] procedure are in the results section. TROPONIN I Routine 09/04/2017 Results for this 6:10 PM [employer] procedure are in the results section. HIV-1/HIV-2 ROUTINE STAT 09/04/2017 Results for this SCREENING 6:10 PM [employer] procedure are in the results section. 12 LEAD EKG Routine 09/04/2017 Results for this 2:23 PM [employer] procedure are in the results section. TROPONIN I POC Routine 09/04/2017 Results for this 2:19 PM [employer] procedure are in the results section. XRAY CHEST 1 VIEW STAT 09/04/2017 Chest pain on breathing Results for this 2:15 PM [employer] procedure are in the results section. BMP POC Routine 09/04/2017 Results for this 2:11 PM [employer] procedure are in the results section. PT/INR/PTT STAT 09/04/2017 Results for this 2:08 PM [employer] procedure are in the results section. TROPONIN I STAT 09/04/2017 Results for this 2:08 PM [employer] procedure are in the results section. B NATRIURETIC PEPT STAT 09/04/2017 Results for this 2:08 PM [employer] procedure are in the results section. CBC/DIFF STAT 09/04/2017 Results for this 2:08 PM [employer] procedure are in the results section. 12 LEAD EKG Routine 09/04/2017 Results for this 1:48 PM [employer] procedure are in the results section. after 04/20/2017 Results * CT HEAD W/O CONTRAST (10/23/2017 [...] MD, 10/23/2017 7:33 AM Performing Organization Address [facility] Phone Number SMS * TROPONIN I POC (10/22/2017 10:36 PM) Only the most recent of 5 results within the time period is included. Troponin POC 0.00 0.00 - 0.08 ng/mL BT MAIN-STATION 1 Performing Organization Address [facility] Phone Number MISYS BT MAIN-STATION 1 * PT/INR (10/22/2017 10:27 PM) PT 14.4 11.8 - 15.0 Seconds BT MAIN-STATION 3 INR 1.1 BT MAIN-STATION 3 SUGGESTED THERAPEUTIC RANGES: INR 2.0-3.0 for MODERATE INTENSITY ANTICOAGULATION INR 2.5-3.5 for HIGH INTENSITY ANTICOAGULATION Specimen Blood Performing Organization Address [facility] Phone Number MISYS BT MAIN-STATION 3 * [...] chest radiograph on 09/04/2017 FINDINGS: TUBES/LINES: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 LUNGS:No consolidations or edema. PLEURA:No effusions or pneumothorax. HEART/MEDIASTINUM:Normal cardiomediastinal silhouette. MUSCULOSKELETAL:No acute findings. 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 LUNGS: No consolidations [...] m2 BT MAIN-STATION 1 Performing Organization Address City/[facility] Phone Number MISYS BT MAIN-STATION 1 * 12 LEAD EKG (10/22/2017 7:48 PM) 12 LEAD EKG FOR [facility] Test Date:2017-10-22 Pat Name: MARK CABRERA epartment: Room: Gender: M Piece Dyeing Machine Tender: [id number] :[birth year] Requested By: Order Number: Alicia cr MD: crystal mccray Measurements Intervals [place] Rate: 131 P: 40 CT: 121 QRS: 16 QRSD: 93 T:62 QT: 286 QTc:423 Interpretive Statements SINUS TACHYCARDIA MODERATE ST DEPRESSION Electronically Signed On 10-22-17 21:15:40 [employer] TIER by crystal mccray Performing Organization Address [facility] Phone Number [facility] * 12 LEAD EKG (09/05/2017 1:47 PM) 12 [facility]AD [facility]:2017-09[facility]05 Pat Name: MARK CABRERA epartment: Room: Gender: M Piece Dyeing Machine Tender: FM :[birth year] Requested By: Order Number: Alicia cr MD: Chong Benito Measurements Intervals [place] Rate: 82 P:58 CT: 135 QRS: 10 QRSD: 102 T: 66 QT: 366 QTc:428 Interpretive Statements SINUS RHYTHM LOW QRS VOLTAGE IN PRECORDIAL LEADS [QRS DEFLECTION < 1.0 mV IN CHEST LEADS] POOR R WAVE PROGRESSION NONSPECIFIC T-WAVE ABNORMALITY ABNORMAL ECG Electronically Signed On 09-06-17 16:11:41 [employer] TIER by Chong Benito Performing Organization Address [facility] Networksnd Phone Number SMS * PT/INR/PTT (09/05/2017 12:18 [...] MAIN-STATION 4 Specimen Blood Performing Organization Address [facility] Phone Number [facility] MAIN-STATION 4 * TROPONIN I (09/04/2017 6:10 PM) Only the most recent of 2 results within the time period is included. Troponin I <0.03 <0.04 ng/mL BT MAIN-STATION 3 Performing Organization Address [facility] Phone Number MISYS BT MAIN-STATION 3 * 12 LEAD EKG (09/04/2017 2:23 PM) 12 LEAD EKG FOR [facility] Test Date:2017-09-04 Pat Name: MARK whittingtonrtment: Room: Gender: M Piece Dyeing Machine Tender: [id number] :1970-0 6-27 Requested By: Order Number: R tayo HOUGH: Katharina Pond M.D. Measurements Intervals [place] Rate: 104 P: 44 CT: 126 QRS: 16 QRSD: 89 T:41 QT: 320 QTc:423 Interpretive Statements Sinus Tachycardia Electronically Signed On 09-04-17 16:45:16 [employer] TIER by Katharina Pond M.D. Performing Organization Address [facility] Phone Number [facility] * XRAY CHEST 1 VIEW (09/04/2017 2:15 PM) Impressions Performed At IMPRESSION: [facility] 1.The superior mediastinum is mildly prominent [...] radiograph 09/02/2016 FINDINGS: TUBES and LINES:Stable implantable interpreter deaf projects at level of the anterior mediastinum [...] Interface, Rad/Mammog In - 09/04/2017 7:40 PM [employer] TIER EXAMINATION: XRAY CHEST 1 VIEW INDICATION: Shortness of breath, chest pain COMPARISON: Chest radiograph 09/02/2016 FINDINGS: TUBES and LINES: Stable implantable interpreter deaf projects at level of the anterior mediastinum [...] MD, 09/04/2017 7:35 PM Performing Organization Address [place]/[facility] Phone Number SMS * B NATRIURETIC PEPT (09/04/2017 2:08 PM) B Natriuretic Pept 15 <101 pg/mL BT MAIN-STATION 3 Specimen Blood Performing Organization Address [facility] Phone Number MISYS BT MAIN-STATION 3 * 12 LEAD EKG (09/04/2017 1:48 PM) 12 LEAD EKG FOR [facility] Test Date:2017-09-04 Pat Name: MARK CABRERA epartment: Room: Gender: Piece Dyeing Machine Tender: [id number] :1970-0 6-27 Requested By: Order Number: Alicia cr MD: Katharina Pond M.D. Measurements Intervals [place] Rate: 98 P:60 CT: 132 QRS: 15 QRSD: 91 T:49 QT: 324 QTc:415 Interpretive Statements SINUS RHYTHM NONSPECIFIC T-WAVE ABNORMALITY Electronically Signed On 09-04-17 16:45:01 [employer] TIER by Katharina Pond M.D. Performing Organization Address [place]/[facility] Phone Number [facility] after 04/20/2017
--- OUTSIDE RECORDS SUMMARY | 2018-09-08 11:27 | XMS REPORT | Clinical Summary ---
Author Author [facility] Organization [facility] Address Unknown Phone Unavailable Care Team Providers Care Manager Licensing Name Role Phone Maya Pantoja [facility] [place] 39 Unavailable Saniya Ray RECEIVING SPECIALIST 39 Unavailable Saritha Vann RECEIVING SPECIALIST 39 Unavailable Gretchen Moyer RN 30 Unavailable Allergies Comments Active Allergy Reactions Severity Noted Date Povidone-Iodine Rash, 08/12/2013 Swelling Phenytoin Rash, 06/11/2013 Swelling Throat closing as per patient Egg 01/08/2014 Iodine Rash, 06/11/2013 Swelling Patient experienced trouble breathing when given iohexol on 01/11/2014. Iohexol Breathing 02/21/2014 problems Carbamazepine Rash, 06/11/2013 Swelling Ondansetron Hcl (Pf) Hives 10/17/2013 Medications End Date Status Medication Sig Dispensed Refills Start Date Active EPINEPHrine (EPIPEN Inject 0.3 mL 1 Each 0 2-SUSAN) 0.3 mg/0.3 mL intramuscular 4 (1:1,000) ly as needed injectionIndications: for Allergic reaction Anaphylaxis. Active albuterol (VENTOLIN Inhale 2 20.1 g 3 HFA,PROVENTIL HFA,PROAIR Puffs by 4 HFA) 90 mcg/actuation mouth 4 times inhalerIndications: COPD daily as (chronic obstructive needed for pulmonary disease) Wheezing. Active aspirin (ASPIRIN) 81 mg Chew and 90 tablet 3 chewable swallow 1 4 tabletIndications: CAD tablet by (coronary artery disease) mouth daily. Active atorvastatin (LIPITOR) 80 Take 1 tablet 30 tablet 3 mg tabletIndications: CAD by mouth at 4 (coronary artery bedtime disease), HLD nightly. (hyperlipidemia) Active budesonide-formoterol Inhale 2 30.6 g 3 (SYMBICORT) 80-4.5 Puffs by 4 mcg/actuation mouth 2 times inhalerIndications: COPD daily. (chronic obstructive pulmonary disease) Active divalproex (DEPAKOTE ER) Take 2 60 tablet 3 500 mg extended release tablets by 4 tabletIndications: mouth at Seizure disorder bedtime nightly. Active isosorbide mononitrate Take 1 tablet 30 tablet 1 (IMDUR) 30 mg extended by mouth 4 release daily. tabletIndications: Chest pain, CAD (coronary artery disease), Atrial fibrillation, COPD (chronic obstructive pulmonary disease), Hypertension, Seizure disorder, Smoking, Inguinal hernia, Polysubstance abuse, Noncompliance Active labetalol (NORMODYNE) 200 Take 1/2 30 tablet 3 mg tabletIndications: tablets by 4 Hypertension mouth every 12 hours. Active Levetiracetam (KEPPRA) Take 1 tablet 30 tablet 5 1,000 mg by mouth 4 tabletIndications: every Seizure disorder evening. Active nitroGLYCERIN (NITROSTAT) Dissolve 1 100 tablet 3 0.4 mg sublingual tablet under 4 tabletIndications: Chest the tongue as pain needed. Maximum of 3 doses in 15 minutes. If chest pain persists, call 911. Active warfarin (COUMADIN) 10 mg Take 1 tablet 15 tablet 0 tabletIndications: by mouth 8 Paroxysmal A-fib daily (warfarin). 09/04/2017 Discontinued warfarin (COUMADIN) 10 mg Take 1 tablet 15 tablet 0 tabletIndications: by mouth 4 Paroxysmal A-fib daily (warfarin). 09/04/2017 Discontinued warfarin (COUMADIN) 10 mg Take 1 tablet 15 tablet 0 tabletIndications: by mouth 8 Paroxysmal A-fib daily (warfarin). 09/04/2017 Discontinued enoxaparin (LOVENOX) 120 Inject 0.8 mL 8 mL 0 mg/0.8 mL under the 8 injectionIndications: skin 2 times Chest pain on breathing daily for 5 days. 09/09/2017 enoxaparin (LOVENOX) 120 Inject 0.8 mL 8 mL 0 mg/0.8 mL under the 8 injectionIndications: skin 2 times Chest pain on breathing daily for 5 days. 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 COPD (chronic obstructive pulmonary disease) 08/12/2013 Smoking 08/12/2013 Hypertension 06/13/2013 Presence of stent in coronary artery in patient with coronary artery disease Acute on chronic heart failure Acute coronary syndrome Hyperlipidemia ST segment changes on electrocardiogram Encounters Care Team Description Date Type Specialty Darrel Chicas MD Shook, Ryan, MD Precordial pain (Primary Dx); Coronary artery disease, angina presence unspecified, unspecified vessel or lesion type, unspecified whether huslia or transplanted heart 10/22/2017 Emergency Emergency Medicine - 10/23/2017 Kush Haas MD Chest pain on breathing (Primary Dx) 09/05/2017 Emergency Emergency Medicine Braeden Ojeda MD Ordonez, Edgardo, MD Chest pain on breathing (Primary Dx); Nausea; Paroxysmal A-fib 09/04/2017 Hospital Emergency Medicine Encounter after 08/03/2017 Immunizations Name Dates Previously Given Next Due [...] Grandfather Maternal Grandmother Mother Sister Social History Date Tobacco Use Types Packs/Day Years Used Current Every Day Smoker Cigarettes 0.5 25 [...] Vital Signs Time Taken Vital Sign Reading 10/23/2017 3:17 AM CDT Blood Pressure 125/68 10/23/2017 3:17 AM CDT Pulse 77 10/23/2017 3:17 AM CDT Temperature 37.2 C (98.9 F) 10/23/2017 3:17 AM CDT Respiratory Rate 16 10/23/2017 3:17 AM CDT Oxygen Saturation 94% - Inhaled Oxygen - Concentration 09/04/2017 2:25 PM CAR TRIMMER Weight 126.6 kg (279 lb) 09/04/2017 2:25 PM CAR TRIMMER Height 177.8 cm (5' 10") 09/04/2017 2:25 PM CAR TRIMMER Body Mass Index 40.03 Plan of Treatment Health Maintenance Due Date Last Done Comments CORONARY ARTERY DISEASE 09/03/2017 09/03/2016, 06/07/2014, 04/06/2014, AGE 18 AND UP Additional history exists IMM Influenza Seasonal 05/15/2018 Oct to October (>/=19 yrs) Procedures Comments Procedure Name Priority Date/Time Associated Diagnosis CT HEAD W/O CONTRAST STAT 10/23/2017 12:29 AM CAR TRIMMER TROPONIN I POC Routine 10/22/2017 10:36 PM CAR TRIMMER PT/INR STAT 10/22/2017 10:27 PM CAR TRIMMER XRAY CHEST 2 VIEWS STAT 10/22/2017 9:12 PM CAR TRIMMER HIV-1/HIV-2 ROUTINE STAT 10/22/2017 SCREENING 9:00 PM CAR TRIMMER CBC/DIFF STAT 10/22/2017 9:00 PM CAR TRIMMER BMP POC Routine 10/22/2017 7:59 PM CAR TRIMMER TROPONIN I POC Routine 10/22/2017 7:57 PM CAR TRIMMER 12 LEAD EKG STAT 10/22/2017 7:48 PM CAR TRIMMER 12 LEAD EKG Routine 09/05/2017 1:47 PM CAR TRIMMER BMP POC Routine 09/05/2017 12:37 PM CAR TRIMMER TROPONIN I POC Routine 09/05/2017 12:35 PM CAR TRIMMER PT/INR/PTT STAT 09/05/2017 12:18 PM CAR TRIMMER XRAY CHEST 2 VIEWS STAT 09/04/2017 Chest pain on breathing 7:45 PM CAR TRIMMER TROPONIN I POC Routine 09/04/2017 6:12 PM CAR TRIMMER TROPONIN I Routine 09/04/2017 6:10 PM CAR TRIMMER HIV-1/HIV-2 ROUTINE STAT 09/04/2017 SCREENING 6:10 PM CAR TRIMMER 12 LEAD EKG Routine 09/04/2017 2:23 PM CAR TRIMMER TROPONIN I POC Routine 09/04/2017 2:19 PM CAR TRIMMER XRAY CHEST 1 VIEW STAT 09/04/2017 Chest pain on breathing 2:15 PM CAR TRIMMER BMP POC Routine 09/04/2017 2:11 PM CAR TRIMMER PT/INR/PTT STAT 09/04/2017 2:08 PM CAR TRIMMER TROPONIN I STAT 09/04/2017 2:08 PM CAR TRIMMER B NATRIURETIC PEPT STAT 09/04/2017 2:08 PM CAR TRIMMER CBC/DIFF STAT 09/04/2017 2:08 PM CAR TRIMMER 12 LEAD EKG Routine 09/04/2017 1:48 PM CAR TRIMMER after 08/03/2017 Results * CT HEAD W/O CONTRAST (10/23/2017 12:29 AM CAR TRIMMER) Impressions Performed At IMPRESSION: SMS 1.No intracranial [...] MD, 10/23/2017 7:33 AM Performing Organization Address [facility] Phone Number SMS * TROPONIN I POC (10/22/2017 10:36 PM CAR TRIMMER) Only the most recent of 5 results within the time period is included. Troponin POC 0.00 0.00 - 0.08 ng/mL BT MAIN-STATION 1 Performing Organization Address [facility] Phone Number MISYS BT MAIN-STATION 1 * PT/INR (10/22/2017 10:27 PM CAR TRIMMER) PT 14.4 11.8 - 15.0 Seconds BT MAIN-STATION 3 INR 1.1 BT MAIN-STATION SUGGESTED THERAPEUTIC RANGES: 3 INR 2.0-3.0 for MODERATE INTENSITY ANTICOAGULATION INR 2.5-3.5 for HIGH INTENSITY ANTICOAGULATION Specimen Blood Performing Organization Address [facility] Phone Number MISYS BT MAIN-STATION 3 * XRAY CHEST 2 VIEWS (10/22/2017 9:12 PM CAR TRIMMER) Only the most recent of 2 results [...] chest radiograph on 09/04/2017 FINDINGS: TUBES/LINES:Stable implantable laboratory monitor overlying the anterior mediastinum. LUNGS:No consolidations or edema. PLEURA:No effusions or pneumothorax. HEART/MEDIASTINUM:Normal cardiomediastinal silhouette. MUSCULOSKELETAL:No acute findings. UPPER ABDOMEN: Normal Procedure Note Interface, Rad/Mammog In - 10/23/2017 3:12 AM CDT EXAMINATION: XRAY CHEST 2 VIEWS, Frontal and lateral INDICATION: chest pain COMPARISON: Two-view chest radiograph on 09/04/2017 FINDINGS: TUBES/LINES: Stable implantable laboratory monitor overlying the anterior mediastinum. LUNGS: No consolidations [...] SMS * HIV-1/HIV-2 ROUTINE SCREENING (10/22/2017 9:00 PM CAR TRIMMER) Only the most recent of 2 results within the time period is included. HIV-1/HIV-2 Negative NEG BT MAIN-STATION 3 Performing Organization Address City/State/Zipcode Phone Number MISYS BT MAIN-STATION 3 * CBC/DIFF (10/22/2017 9:00 PM CAR TRIMMER) Only the most recent of 2 results [...] 400 K/uL BT MAIN-STATION 2 Mean Platelet 10.2 9.4 - 12.4 fL BT MAIN-STATION Volume 2 Percent NRBC 0.0 BT MAIN-STATION 2 [...] 0.08 K/uL BT MAIN-STATION 2 Absol Immat 0.02 0.00 - 0.03 K/uL BT MAIN-STATION Gran 2 Specimen Blood Performing Organization Address City/State/Zipcode Phone Number MISYS BT MAIN-STATION 2 * BMP POC (10/22/2017 7:59 PM CAR TRIMMER) Only the most recent of 3 results [...] 106 mg/dL BT MAIN-STATION 1 Urea Nitrogen 16 7 - 18 mg/dL BT MAIN-STATION POC 1 Creatinine POC 1.2 0.6 - 1.3 mg/dL BT MAIN-STATION 1 Calcium Ionized 1.08 (L) 1.15 - 1.29 mmol/L BT MAIN-STATION POC 1 Hemoglobin POC 16.0 14.0 - 18.0 g/dL BT MAIN-STATION 1 Hematocrit POC 47.0 40.0 - 54.0 % BT MAIN-STATION 1 GFR, Estimated >60 mL/min/1.73 m2 BT MAIN-STATION 1 GFR, Estim, >60 mL/min/1.73 m2 BT MAIN-STATION Afr-Am 1 Performing Organization Address City/[facility] Phone Number MISYS BT MAIN-STATION 1 * 12 LEAD EKG (10/22/2017 7:48 PM CAR TRIMMER) 12 LEAD EKG FOR [facility] Test Date:2017-10-22 Pat Name: MARK CABRERA epartment: Room: Gender: M Desktop Publishing Associate: [id number] :[birth year] Requested By: Order Number: Alicia cr MD: crystal mccray Measurements Intervals [place] Rate: 131 P: 40 MN: 121 QRS: 16 QRSD: 93 T:62 QT: 286 QTc:423 Interpretive Statements SINUS TACHYCARDIA MODERATE ST DEPRESSION Electronically Signed On 10-22-17 21:15:40 CAR TRIMMER by crystal mccray Performing Organization Address [facility] Phone Number [facility] * 12 LEAD EKG (09/05/2017 1:47 PM CAR TRIMMER) 12 LEAD EKG FOR [facility] Test Date:2017-09-05 Pat Name: MARK CABRERA epartment: Room: Gender: M Desktop Publishing Associate: FM :[birth year] Requested By: Order Number: Alicia cr MD: Chong Benito Measurements Intervals [place] Rate: 82 P:58 MN: 135 QRS: 10 QRSD: 102 T: 66 QT: 366 QTc:428 Interpretive Statements SINUS RHYTHM LOW QRS VOLTAGE IN PRECORDIAL LEADS [QRS DEFLECTION < 1.0 mV IN CHEST LEADS] POOR R WAVE PROGRESSION NONSPECIFIC T-WAVE ABNORMALITY ABNORMAL ECG Electronically Signed On 09-06-17 16:11:41 CAR TRIMMER by Chong Benito Performing Organization Address City/State/[facility] Phone Number SMS * PT/INR/PTT (09/05/2017 12:18 PM CAR TRIMMER) Only the most recent of 2 results within the time period is included. PT 14.1 11.8 - 15.0 Seconds [facility] MAIN-STATION 4 INR 1.1 [facility] SUGGESTED THERAPEUTIC RANGES: MAIN-STATION 4 INR 2.0-3.0 for MODERATE INTENSITY ANTICOAGULATION INR 2.5-3.5 for HIGH INTENSITY ANTICOAGULATION PTT 37.3 (H) 23.6 - 36.4 Seconds [facility] MAIN-STATION 4 Specimen Blood Performing Organization Address [facility] Phone Number MISYS [facility] MAIN-STATION 4 * TROPONIN I (09/04/2017 6:10 PM CAR TRIMMER) Only the most recent of 2 results within the time period is included. Troponin I <0.03 <0.04 ng/mL BT MAIN-STATION 3 Performing Organization Address [facility] Phone Number MISYS BT MAIN-STATION 3 * 12 LEAD EKG (09/04/2017 2:23 PM CAR TRIMMER) 12 LEAD EKG FOR [facility] Test Date:2017-09-04 Pat Name: MARK CABRERA epartment: Room: Gender: M Desktop Publishing Associate: [id number] :1970-0 6-27 Requested By: Order Number: Alicia cr MD: Katharina Pond M.D. Measurements Intervals [place] Rate: 104 P: 44 MN: 126 QRS: 16 QRSD: 89 T:41 QT: 320 QTc:423 Interpretive Statements Sinus Tachycardia Electronically Signed On 09-04-17 16:45:16 CAR TRIMMER by Katharina Pond M.D. Performing Organization Address City/[place] Phone Number SMS * XRAY CHEST 1 VIEW (09/04/2017 2:15 PM CAR TRIMMER) Impressions Performed At IMPRESSION: SMS 1.The superior mediastinum is mildly prominent which [...] radiograph 09/02/2016 FINDINGS: TUBES and LINES:Stable implantable laboratory monitor projects at level of the anterior mediastinum [...] Interface, Rad/Mammog In - 09/04/2017 7:40 PM CAR TRIMMER EXAMINATION: XRAY CHEST 1 VIEW INDICATION: Shortness of breath, chest pain COMPARISON: Chest radiograph 09/02/2016 FINDINGS: TUBES and LINES: Stable implantable laboratory monitor projects at level of the anterior mediastinum [...] MD, 09/04/2017 7:35 PM Performing Organization Address City/State/Zipcode Phone Number SMS * B NATRIURETIC PEPT (09/04/2017 2:08 PM CAR TRIMMER) B Natriuretic 15 <101 pg/mL BT MAIN-STATION Pept 3 Specimen Blood Performing Organization Address City/State/Zipcode Phone Number MISYS BT MAIN-STATION 3 * 12 LEAD EKG (09/04/2017 1:48 PM CAR TRIMMER) 12 LEAD EKG FOR [facility] Test Date:2017-09-04 Pat Name: MARK CABRERA epartment: Room: Gender: Desktop Publishing Associate: [id number] :1970-0 02-08 Requested By: Order Number: R tayo HOUGH: Katharina Pond M.D. Measurements Intervals [place] Rate: 98 P:60 MN: 132 QRS: 15 QRSD: 91 T:49 QT: 324 QTc:415 Interpretive Statements SINUS RHYTHM NONSPECIFIC T-WAVE ABNORMALITY Electronically Signed On 09-04-17 16:45:01 CAR TRIMMER by Katharina Pond M.D. Performing Organization Address City/State/Zipcode Phone Number SMS after 08/03/2017 Insurance Type Payer Benefit Subscriber ID Effective Phone Address Plan / Dates Group PENDING RCA SSI xxxxxxxxxxxx 2017-P [phone] [id number] [place] [address] [facility] SELF-PAY [facility] xxxxxxxxx 2017- [phone] [place] [id number] (Home) [place] [address] Advance Directives For more information, please contact: [address] [address] Date Inactivated Comments Code Status Date Activated 10/23/2017 9:26 AM Discussed goals of care with pt at ~0500 on 10/23/17 and pt clear in decision to be FULL CODE. Full Code 10/23/2017 6:08 AM 09/05/2017 12:02 AM Full Code 09/04/2017 6:39 PM 09/03/2016 10:40 AM Full Code 09/02/2016 2:06 PM 07/04/2014 12:02 AM Full Code 07/03/2014 7:24 AM 06/07/2014 3:28 PM Full Code 06/06/2014 11:06 PM
--- OUTSIDE RECORDS SUMMARY | 2018-09-08 11:27 | XMS REPORT ---
Author Author Admin, [facility] Address [address] [place] [address] Phone Allergies, Adverse Reactions, Alerts Allergy Name Reaction Description Start Date Severity Status Provider ZOFRAN Critical Active Polina Allen MD IODINE Critical Active Polina Allen MD TEGRETOL Critical Active Polina Allen MD DILANTIN Critical Active Polina Allen MD Conditions or Problems Problem Name Problem Code Onset Date Status Entry Date Provider Comment Standard Description Annotate Passive smoke exposure Active Feliciano Cesar MD Other specified personal history presenting hazards to health Obesity Active Feliciano Cesar MD Obesity, unspecified Chest pain 786.50 Active Feliciano Cesar MD Unspecified chest pain Swelling of right leg 729.81 Active Feliciano Cesar MD Swelling of limb Asthma 493.90 Active Polina Allen MD Asthma, unspecified Atrial fibrillation 427.31 Active Polina Allen MD Atrial fibrillation Benign prostatic hypertrophy 600.00 Active Polina Allen MD Hypertrophy (benign) of prostate without urinary obstruction and other lower urinary tract (LUTS) Congestive heart failure (CHF) 428.0 Active Polina Allen MD Congestive heart failure, unspecified COPD 496 Active Polina Allen MD Chronic airway obstruction, not elsewhere classified Coronary arterial disease 414.00 Active Polina Allen MD Coronary atherosclerosis of unspecified type of vessel, [place] or graft GERD 530.81 Active Polina Allen MD Esophageal reflux Hernia of anterior abdominal wall 553.20 Active Polina Allen MD Unspecified ventral hernia without mention of obstruction or gangrene History of pulmonary embolus V12.51 Active Polina Allen MD Personal history of venous thrombosis and embolism Hx of acute myocardial infarction 410.90 Active Polina Allen MD Acute myocardial infarction, unspecified site, episode of care unspecified Hx of cardioembolic stroke V12.54 Active Polina Allen MD Personal history of transient ischemic attack (TIA), and cerebral infarction without residual deficits Hypertension 401.9 Active Polina Allen MD Unspecified essential hypertension Patient has no insurance V60.2 Active Polina Allen MD Inadequate material resources Seizure disorder 780.39 Active Polina Allen MD Other convulsions Smoker 305.1 Active Polina Aleln MD Tobacco use disorder Substance abuse 305.90 Active Polina Allen MD Other, mixed, or unspecified drug abuse, unspecified use Medication List Medication Instructions Start Date Stop Date Generic Name ND Status Provider Patient Instruction AMLODIPINE BESYLATE 5 MG ORAL TABLET 1 tab by mouth daily AMLODIPINE BESYLATE 09812486376 Active Polina Allen MD Active COUMADIN 5 MG ORAL TABLET Take 2 pills (10 mg) MWF and 1.5 pills SuTRSat WARFARIN SODIUM 63919650726 Active Nora Lyon MD R1 Active LISINOPRIL 10 MG ORAL TABLET 1 by mouth every day LISINOPRIL 16814388747 Active Nora Lyon MD R1 Active PROMETHAZINE HCL 25 MG ORAL TABLET Take 1 tablet By Mouth every 6 hours As Needed nausea or vomiting PROMETHAZINE HCL 65113480659 Active Polina Allen MD Active ATROVENT HFA 17 MCG/ACT INHALATION AEROSOL SOLUTION 2 inhalations twice a day IPRATROPIUM BROMIDE HFA 13383878380 Active Nora Lyon MD R1 Active PROAIR HFA 108 (90 BASE) MCG/ACT INHALATION AEROSOL SOLUTION 1-2 puffs every 6 hours as needed ALBUTEROL SULFATE 47713317958 Active Nora Lyon MD R1 Active QVAR REDIHALER 80 MCG/ACT INHALATION AEROSOL BREATH ACTIVATED 1 inhalation twice a day BECLOMETHASONE DIPROP HFA 57704225777 Active Nora Lyon MD R1 Active ASPIRIN 81 MG ORAL TABLET DELAYED RELEASE 1 by mouth every day ASPIRIN 34877440453 Active Nora Lyon MD (res) Active BENADRYL 25 MG ORAL CAPSULE 1 by mouth 2 times a day As Needed for allergies DIPHENHYDRAMINE HCL 20776501477 Active Polina Allen MD Active DEPAKOTE 500 MG ORAL TABLET DELAYED RELEASE take 1000 mg By Mouth BID DIVALPROEX SODIUM 04558951000 Active Nora Lyon MD (res) Active FUROSEMIDE 40 MG ORAL TABLET Take one tablet a day. FUROSEMIDE 29862145438 Active Nora Lyon MD (res) Active ISOSORBIDE MONONITRATE ER 30 MG ORAL TABLET EXTENDED RELEASE 24 HOUR Take 1 tablet By Mouth Qd ISOSORBIDE MONONITRATE 73180825452 Active Nora Lyon MD (res) Active K-TAB 10 MEQ ORAL TABLET EXTENDED RELEASE Take 1 tablet By Mouth Qd POTASSIUM CHLORIDE 53757760354 Active Nora Lyon MD (res) Active KEPPRA 1000 MG ORAL TABLET Take 1 tablet by mouth BID LEVETIRACETAM 24431663271 Active Nora Lyon MD (res) Active METOPROLOL TARTRATE 100 MG ORAL TABLET Take one tablet twice a day. METOPROLOL TARTRATE 36631631367 Active Nora Lyon MD (res) Active PRILOSEC 20 MG ORAL CAPSULE DELAYED RELEASE Take 1 tablet By Mouth Qd OMEPRAZOLE 74680185177 Active Nora Lyon MD (res) Active TERAZOSIN HCL 2 MG ORAL CAPSULE Take 2 mg By Mouth QPM TERAZOSIN HCL 31949066093 Active Nora Lyon MD (res) Active AMLODIPINE BESYLATE 5 MG ORAL TABLET 1 tab by mouth daily AMLODIPINE BESYLATE 5 MG ORAL TABLET 549752 AMLODIPINE BESYLATE Inactive ASPIRIN 81 MG ORAL TABLET DELAYED RELEASE 1 by mouth every day ASPIRIN 81 MG ORAL TABLET DELAYED RELEASE 821527 ASPIRIN Inactive DEPAKOTE 500 MG ORAL TABLET DELAYED RELEASE Take 2 tablets twice a day DEPAKOTE 500 MG ORAL TABLET DELAYED RELEASE 9463279 DIVALPROEX SODIUM Inactive DIPHENHYDRAMINE HCL 25 MG ORAL CAPSULE 1 by mouth twice a day DIPHENHYDRAMINE HCL 25 MG ORAL CAPSULE 7690552 DIPHENHYDRAMINE HCL Inactive ISOSORBIDE MONONITRATE ER 30 MG ORAL TABLET EXTENDED RELEASE 24 HOUR Take one tablet once a day. ISOSORBIDE MONONITRATE ER 30 MG ORAL TABLET EXTENDED RELEASE 24 HOUR ISOSORBIDE MONONITRATE Inactive KEPPRA 1000 MG ORAL TABLET Take 1 tablet by mouth twice a day KEPPRA 1000 MG ORAL TABLET 050305 LEVETIRACETAM Inactive LISINOPRIL 5 MG ORAL TABLET Take one tablet a day. LISINOPRIL 5 MG ORAL TABLET 605690 LISINOPRIL Inactive OMEPRAZOLE 20 MG ORAL CAPSULE DELAYED RELEASE 1 by mouth every day OMEPRAZOLE 20 MG ORAL CAPSULE DELAYED RELEASE 061847 OMEPRAZOLE Inactive POTASSIUM CHLORIDE ER 10 MEQ ORAL TABLET EXTENDED RELEASE Take 1 tablet by mouth daily POTASSIUM CHLORIDE ER 10 MEQ ORAL TABLET EXTENDED RELEASE POTASSIUM CHLORIDE Inactive TERAZOSIN HCL 2 MG ORAL CAPSULE Take 1 tablet by mouth nightly TERAZOSIN HCL 2 MG ORAL CAPSULE 177990 TERAZOSIN HCL Inactive WARFARIN SODIUM 7.5 MG ORAL TABLET Take one tablet a day. WARFARIN SODIUM 7.5 MG ORAL TABLET 184454 WARFARIN SODIUM Inactive AMLODIPINE BESYLATE 5 MG ORAL TABLET 1 tab by mouth daily AMLODIPINE BESYLATE 00966034857 No Longer Active Polina Allen MD Active ASPIRIN 81 MG ORAL TABLET DELAYED RELEASE 1 by mouth every day ASPIRIN 11129032355 No Longer Active Polina Allen MD Active DEPAKOTE 500 MG ORAL TABLET DELAYED RELEASE Take 2 tablets twice a day DIVALPROEX SODIUM 40299858197 No Longer Active Polina Allen MD Active DIPHENHYDRAMINE HCL 25 MG ORAL CAPSULE 1 by mouth twice a day DIPHENHYDRAMINE HCL 44145597577 No Longer Active Polina Allen MD Active ISOSORBIDE MONONITRATE ER 30 MG ORAL TABLET EXTENDED RELEASE 24 HOUR Take one tablet once a day. ISOSORBIDE MONONITRATE 73723905766 No Longer Active Polina Allen MD Active KEPPRA 1000 MG ORAL TABLET Take 1 tablet by mouth twice a day LEVETIRACETAM 10643830956 No Longer Active Polina Allen MD Active LISINOPRIL 5 MG ORAL TABLET Take one tablet a day. LISINOPRIL 46795704265 No Longer Active Polina Allen MD Active OMEPRAZOLE 20 MG ORAL CAPSULE DELAYED RELEASE 1 by mouth every day OMEPRAZOLE 01992192233 No Longer Active Polina Allen MD Active POTASSIUM CHLORIDE ER 10 MEQ ORAL TABLET EXTENDED RELEASE Take 1 tablet by mouth daily POTASSIUM CHLORIDE 32014848979 No Longer Active Polina Allne MD Active TERAZOSIN HCL 2 MG ORAL CAPSULE Take 1 tablet by mouth nightly TERAZOSIN HCL 24799686007 No Longer Active Polina Allen MD Active WARFARIN SODIUM 7.5 MG ORAL TABLET Take one tablet a day. WARFARIN SODIUM 48983459244 No Longer Active Polina Allen MD Active Vital Signs Date Name Value Unit Range Description blood pressure, diastolic, second observation 100 mm[Hg] BP [place] blood pressure, diastolic 100 mm[Hg] BP [place] blood pressure, systolic, second observation 152 mm[Hg] BP sys blood pressure, systolic 152 mm[Hg] BP sys height E&M 71 [in_us] Bdy height pulse rate E&M 105 /min Heart rate pulse rate #2 105 Heart rate respiratory rate E&M 27 /min Resp rate temperature E&M 99.1 [degF] Body temperature weight E&M 278 [lb_av] Weight Measured blood pressure, diastolic 113 mm[Hg] BP [place] blood pressure, systolic 161 mm[Hg] BP sys height E&M 71 [in_us] Bdy height pulse rate E&M 93 /min Heart rate respiratory rate E&M 17 /min Resp rate temperature E&M 98.0 [degF] Body temperature weight E&M 270 [lb_av] Weight Measured blood pressure, diastolic 90 mm[Hg] BP [place] blood pressure, systolic 140 mm[Hg] BP sys height E&M 71 [in_us] Bdy height pulse rate E&M 112 /min Heart rate respiratory rate E&M 16 /min Resp rate temperature E&M 99.0 [degF] Body temperature weight E&M 271.20 [lb_av] Weight Measured blood pressure, diastolic, second observation 119 mm[Hg] BP [place] blood pressure, diastolic 119 mm[Hg] BP [place] blood pressure, systolic, second observation 164 mm[Hg] BP sys blood pressure, systolic 164 mm[Hg] BP sys height E&M 71 [in_us] Bdy height pulse rate E&M 78 /min Heart rate respiratory rate E&M 20 /min Resp rate temperature E&M 98.0 [degF] Body temperature weight E&M 274.60 [lb_av] Weight Measured blood pressure, diastolic 114 mm[Hg] BP [place] blood pressure, systolic 165 mm[Hg] BP sys height E&M 71 [in_us] Bdy height pulse rate E&M 94 /min Heart rate respiratory rate E&M 20 /min Resp rate temperature E&M 98.2 [degF] Body temperature weight E&M 279 [lb_av] Weight Measured Diagnostic Results Date Name Value Unit Range Description Office Visit: Adult Followup Hospital Discharge - Chemistry bilirubin, serum, total 0.3 mg/dL Office Visit: Adult Followup Hospital Discharge - Genetics/fertility eGFR if 86 mL/min/1.73m2 Office Visit: Adult Followup [facility] Discharge - Chemistry urea nitrogen, blood 10 mg/dL Office Visit: Adult Followup Hospital Discharge - Genetics/fertility eGFR if not 71 mL/min/1.73m2 Office Visit: Adult Followup Hospital Discharge - Chemistry alanine aminotransferase (SGPT), serum 62 U/L aspartate aminotransferase (SGOT), serum 29 U/L Office Visit: Adult Followup - - Coagulation international normalized ratio (INR) 1.0 Office Visit: Adult Followup Hospital Discharge - Chemistry creatinine, serum 1.1 mg/dL Encounters Date Encounter Provider Code Facility 16:42:14 GROUP BURNER MACHINE Est Patient Exp Problem - 20991 Nora Lyon MD R1 CPT-85860 [facility] 17:51:07 CDT Est Patient Exp Problem - 28509 Nora Lyon MD R1 CPT-89836 [facility] 16:55:16 CDT Est Patient Detailed - 76130 Nora Lyon MD (res) CPT-21842 [facility] 10:10:40 CDT Est Patient Exp Problem - 88068 Nora Lyon MD (res) CPT-50012 [facility] 21:52:38 GROUP BURNER MACHINE New Patient Comprehensive - 75101 Polina Allen MD CPT-21620 [facility] Procedures Code Procedure Name Date Entry Date Standard Description CPT-38994 Prothrombin Time (INR) - In House 16:42:32 GROUP BURNER MACHINE
--- OUTSIDE RECORDS SUMMARY | 2018-09-08 11:27 | XMS REPORT | Clinical Summary ---
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 [facility] [[email or web address]] showed nonobstructive CAD and anomalous origin of [...] unspecified vessel or lesion type, unspecified whether [place]ul[place] or transplanted heart 09/05/2017 Emergency Emergency Medicine Kush Haas MD Chest pain on breathing (Primary Dx) 09/04/2017 Hospital Emergency Medicine Braeden Ojeda MD Chest pain on breathing Encounter Jose Alberto Anna MD (Primary Dx); Nausea; Paroxysmal A-fib after 03/28/2017 Immunizations Name Dates Previously Given Next Due [...] 126.6 kg (279 lb) 09/04/2017 2:25 PM BANK COMPLIANCE OFFICER Height 177.8 cm (5' 10") 09/04/2017 2:25 PM BANK COMPLIANCE OFFICER Body Mass Index 40.03 09/04/2017 2:25 PM BANK COMPLIANCE OFFICER Plan of Treatment Health Maintenance Due Date Last Done Comments CORONARY ARTERY DISEASE 09/03/2017 09/03/2016, 06/07/2014, 04/06/2014, AGE 18 AND UP Additional history exists IMM Influenza Seasonal 05/15/2018 Oct to October (>/=19 yrs) Results * CT HEAD W/O CONTRAST (10/23/2017 12:29 AM) Specimen Performing Laboratory SMS Impressions IMPRESSION: 1.No intracranial abnormalities. 2.No changes from [...] Reinaldo Hutton MD, 10/23/2017 7:33 AM Narrative Exam : Head CT without contrast History: [...] By: Reinaldo Hutton MD, 10/23/2017 7:33 AM * TROPONIN I POC (10/22/2017 10:36 PM) Only the most recent of 5 results within the time period is included. Component Value Ref Range Troponin POC 0.00 0.00 - 0.08 ng/mL Specimen Performing Laboratory MISYS * PT/INR (10/22/2017 10:27 PM) Component Value Ref Range PT 14.4 11.8 - 15.0 Seconds INR 1.1 SUGGESTED THERAPEUTIC RANGES: INR 2.0-3.0 for MODERATE INTENSITY ANTICOAGULATION INR 2.5-3.5 for HIGH INTENSITY ANTICOAGULATION Specimen Performing Laboratory Blood MISYS * XRAY CHEST 2 VIEWS (10/22/2017 9:12 PM) Only the most recent of 2 results within the time period is included. Specimen Performing Laboratory SMS Impressions IMPRESSION: No acute thoracic abnormality. Dictated By: Smooth Monroy MD, 10/23/2017 1:55 AM I have reviewed the study and agree with the findings in this report. Signed By: Jens Hwang MD, 10/23/2017 3:06 AM Narrative EXAMINATION:XRAY CHEST 2 VIEWS, Frontal and lateral INDICATION: chest pain COMPARISON:Two-view chest radiograph on 09/04/2017 FINDINGS: TUBES/LINES:Stable implantable veneer sample maker overlying the anterior mediastinum. LUNGS:No consolidations or edema. PLEURA:No effusions or pneumothorax. HEART/MEDIASTINUM:Normal cardiomediastinal silhouette. MUSCULOSKELETAL:No acute findings. UPPER ABDOMEN: Normal Procedure Note Interface, Rad/Mammog In - 10/23/2017 3:12 AM CDT EXAMINATION: XRAY CHEST 2 VIEWS, Frontal and lateral INDICATION: chest pain COMPARISON: Two-view chest radiograph on 09/04/2017 FINDINGS: TUBES/LINES: Stable implantable veneer sample maker overlying the anterior mediastinum. LUNGS: No consolidations or edema. PLEURA: No effusions or pneumothorax. HEART/MEDIASTINUM: Normal cardiomediastinal silhouette. MUSCULOSKELETAL: No acute findings. UPPER ABDOMEN: Normal IMPRESSION IMPRESSION: No acute thoracic abnormality. Dictated By: Smooth Monroy MD, 10/23/2017 1:55 AM I have reviewed the study and agree with the findings in this report. Signed By: Jens Hwang MD, 10/23/2017 3:06 AM * HIV-1/HIV-2 ROUTINE SCREENING (10/22/2017 9:00 PM) Only the most recent of 2 results within the time period is included. Component Value Ref Range HIV-1/HIV-2 Negative NEG Specimen Performing Laboratory [facility] * CBC/DIFF (10/22/2017 9:00 PM) Only the most recent of 2 results within the time period is included. Component Value Ref Range WBC 5.5 4.5 - 12.0 K/uL RBC 4.89 4.60 - 6.20 M/uL Hemoglobin 15.4 14.0 - 18.0 g/dL Hematocrit 45.1 40.0 - 54.0 % MCV 92 82 - 92 fL MCH 31.5 (H) 27.0 - 31.0 pg MCHC 34.1 32.0 - 36.0 g/dL RDW 44.6 (H) 35.1 - 43.9 fL Platelet 173 150 - 400 K/uL Mean Platelet Volume 10.2 9.4 - 12.4 fL Percent NRBC 0.0 Absolute NRBC 0.00 Neutrophil 72.3 (H) 34.0 - 67.9 % Lymphocyte 19.8 (L) 21.8 - 50.0 % Monocyte 6.2 5.3 - 12.0 % Eosinophil 1.1 0.8 - 5.0 % Basophil 0.2 0.2 - 1.2 % Pct Immat Gran 0.4 0.0 - 0.5 Neutrophil, Abs 3.99 1.78 - 5.36 K/uL Lymphocyte, Abs 1.09 (L) 1.32 - 3.57 K/uL Monocyte, Abs 0.34 0.30 - 0.82 K/uL Eosinophil, Abs 0.06 0.04 - 0.54 K/uL Basophil, Abs 0.01 0.01 - 0.08 K/uL Absol Immat Gran 0.02 0.00 - 0.03 K/uL Specimen Performing Laboratory Blood MISYS * BMP POC (10/22/2017 7:59 PM) Only the most recent of 3 results within the time period is included. Component Value Ref Range CO2 POC 22Comment: Physician Notified 21 - 32 mmol/L Chloride POC 106 98 - 107 mmol/L Potassium POC 3.3 (L) 3.50 - 5.10 mmol/L Sodium POC 141 136 - 145 mmol/L Glucose POC 152 (H) 74 - 106 mg/dL Urea Nitrogen POC 16 7 - 18 mg/dL Creatinine POC 1.2 0.6 - 1.3 mg/dL Calcium Ionized POC 1.08 (L) 1.15 - 1.29 mmol/L Hemoglobin POC 16.0 14.0 - 18.0 g/dL Hematocrit POC 47.0 40.0 - 54.0 % GFR, Estimated >60 mL/min/1.73 m2 GFR, Estim, Afr-Am >60 mL/min/1.73 m2 Specimen Performing Laboratory MISYS * 12 LEAD EKG (10/22/2017 7:48 PM) Only the most recent of 4 results within the time period is included. Component Value Ref Range 12 LEAD EKG FOR [facility] Test Date:2017-10-22 Pat Name: MARK CABRERAepartment: : Gender: CANDICE echnician: [id number] :1970 Requested By: Order Number: Reading MD: crystal mccray Measurements Intervals [place] Rate: 131P: 40 MN: 121QRS :16 QRSD: 93 T:62 QT: 286 QTc:423 Interpretive Statements SINUS TACHYCARDIA MODERATE ST DEPRESSION Electronically Signed On 10-22-17 21:15:40 BANK COMPLIANCE OFFICER by crystal mccray Specimen Performing Laboratory SMS * PT/INR/PTT (09/05/2017 12:18 PM) Only the most recent of 2 results within the time period is included. Component Value Ref Range PT 14.1 11.8 - 15.0 Seconds INR 1.1 SUGGESTED THERAPEUTIC RANGES: INR 2.0-3.0 for MODERATE INTENSITY ANTICOAGULATION INR 2.5-3.5 for HIGH INTENSITY ANTICOAGULATION PTT 37.3 (H) 23.6 - 36.4 Seconds Specimen Performing Laboratory Blood MISYS * TROPONIN I (09/04/2017 6:10 PM) Only the most recent of 2 results within the time period is included. Component Value Ref Range Troponin I <0.03 <0.04 ng/mL Specimen Performing Laboratory MISYS * XRAY CHEST 1 VIEW (09/04/2017 2:15 PM) Specimen Performing Laboratory SMS Impressions IMPRESSION: 1.The superior mediastinum is mildly prominent [...] Jens Hwang MD, 09/04/2017 7:35 PM Narrative EXAMINATION:XRAY CHEST 1 VIEW INDICATION: Shortness of breath, chest pain COMPARISON:Chest radiograph 09/02/2016 FINDINGS: TUBES and LINES:Stable implantable veneer sample maker projects at level of the anterior mediastinum [...] Interface, Rad/Mammog In - 09/04/2017 7:40 PM BANK COMPLIANCE OFFICER EXAMINATION: XRAY CHEST 1 VIEW INDICATION: Shortness of breath, chest pain COMPARISON: Chest radiograph 09/02/2016 FINDINGS: TUBES and LINES: Stable implantable veneer sample maker projects at level of the anterior mediastinum [...] By: Jens Hwang MD, 09/04/2017 7:35 PM * B NATRIURETIC PEPT (09/04/2017 2:08 PM) Component Value Ref Range B Natriuretic Pept 15 <101 pg/mL Specimen Performing Laboratory Blood MISYS after 03/28/2017
--- OUTSIDE RECORDS SUMMARY | 2018-09-08 11:28 | XMS REPORT ---
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 Allergies, Adverse Reactions, Alerts This patient has no known allergies or adverse reactions. Medications This patient has no known medications. Encounters Start Date/Time End Date/Time Encounter Type Admission Type Attending [facility] Care Department Encounter ID 2017-09-04 19:36:01 Inpatient [facility] [id number] 2017-10-23 00:25:55 2017-10-23 00:25:55 Emergency [facility] [id number] 2017-10-22 20:22:32 2017-10-22 20:22:32 Emergency [facility] [id number] 2017-10-22 20:07:01 2017-10-22 20:07:01 Outpatient [facility] [id number] 2017-09-12 16:21:00 2017-09-12 16:21:00 Emergency [facility] [id number] 2017-09-05 12:08:22 2017-09-05 12:08:22 Emergency [facility] [id number] 2017-09-04 14:01:58 2017-09-04 14:01:58 Emergency [facility] [id number] 2017-09-04 13:56:06 2017-09-04 13:56:06 Inpatient [facility] [id number] 2016-12-13 12:22:00 2016-12-13 12:22:00 [facility] [id number] Results Test Description Test Time Test Comments Text Results Atomic Results Result Comments TROPONIN I 2018-04-06 02:54:00 TROPONIN I (BEAKER) (test xglp=371) < ng/mL 0.00-0.03 Troponin I (TnI) levels must be interpreted in the context of the presenting sym ptoms and the clinical findings. Elevated TnI levels indicate myocardial damage, but are not specific for ischemic heart disease. Elevated TnI levels are seen in patients with other cardiac conditions (including myocarditis and congestive h eart failure), and slight TnI elevations occur in patients with other conditions , including sepsis, renal failure, acidosis, acute neurological disease, and per sistent tachyarrhythmia.[id number] 02:46:00* Test Item Value Reference Range Comments PHOSPHORUS (BEAKER) (test zwik=136) 4.4 mg/dL 2.3-4.7 [id number] 02:46:00* Test Item Value Reference Range Comments MAGNESIUM (BEAKER) (test rbpi=910) 1.9 mg/dL 1.6-2.6 BASIC METABOLIC [id number] 02:46:00* Test Item Value Reference Range Comments SODIUM (BEAKER) (test ixre=695) 138 meq/L 136-145 POTASSIUM (BEAKER) (test ytnb=318) 4.2 meq/L 3.5-5.1 CHLORIDE (BEAKER) (test bigh=156) 107 meq/L 98-107 CO2 (BEAKER) (test rdhv=531) 23 meq/L 22-29 BLOOD UREA NITROGEN (BEAKER) (test behy=916) 10 mg/dL 7-21 CREATININE (BEAKER) (test xlcc=959) 0.87 mg/dL 0.57-1.25 GLUCOSE RANDOM (BEAKER) (test tvei=868) 98 mg/dL 70-105 CALCIUM (BEAKER) (test xglt=209) 9.2 mg/dL 8.4-10.2 EGFR (BEAKER) (test mzmk=0498) 93 mL/min/1.73 sq m ESTIMATED GFR IS NOT ACCURATE CREATININE CLEARANCE IN PREDICTING GLOMERULAR FILTRATION RATE. ESTIMATED GFR IS NOT APPLICABLE FOR DIALYSIS PATIENTS. CBC W/PLT COUNT & AUTO [id number] 02:23:00* Test Item Value Reference Range Comments WHITE BLOOD CELL COUNT (BEAKER) (test dumt=220) 3.9 K/ L 3.5-10.5 RED BLOOD CELL COUNT (BEAKER) (test qytp=969) 4.83 M/ L 4.63-6.08 HEMOGLOBIN (BEAKER) (test krne=385) 15.8 GM/DL 13.7-17.5 HEMATOCRIT (BEAKER) (test owth=017) 45.7 % 40.1-51.0 MEAN CORPUSCULAR VOLUME (BEAKER) (test ttej=101) 94.6 fL 79.0-92.2 MEAN CORPUSCULAR HEMOGLOBIN (BEAKER) (test rstt=838) 32.7 pg 25.7-32.2 MEAN CORPUSCULAR HEMOGLOBIN CONC (BEAKER) (test pnkh=405) 34.6 GM/DL 32.3-36.5 RED CELL DISTRIBUTION WIDTH (BEAKER) (test trel=337) 13.1 % 11.6-14.4 PLATELET COUNT (BEAKER) (test bvoo=915) 153 K/CU MM 150-450 MEAN PLATELET VOLUME (BEAKER) (test ujnp=976) 9.9 fL 9.4-12.4 NUCLEATED RED BLOOD CELLS (BEAKER) (test syoe=074) 0 /100 WBC 0-0 NEUTROPHILS RELATIVE PERCENT (BEAKER) (test lmim=774) 51 % LYMPHOCYTES RELATIVE PERCENT (BEAKER) (test isuk=120) 37 % MONOCYTES RELATIVE PERCENT (BEAKER) (test eihp=475) 8 % EOSINOPHILS RELATIVE PERCENT (BEAKER) (test cagm=659) 3 % BASOPHILS RELATIVE PERCENT (BEAKER) (test dnhd=680) 1 % NEUTROPHILS ABSOLUTE COUNT (BEAKER) (test pyhn=160) 1.98 K/ L 1.78-5.38 LYMPHOCYTES ABSOLUTE COUNT (BEAKER) (test dfqy=483) 1.46 K/ L 1.32-3.57 MONOCYTES ABSOLUTE COUNT (BEAKER) (test ynjq=268) 0.33 K/ L 0.30-0.82 EOSINOPHILS ABSOLUTE COUNT (BEAKER) (test aeyo=543) 0.11 K/ L 0.04-0.54 BASOPHILS ABSOLUTE COUNT (BEAKER) (test nqil=023) 0.02 K/ L 0.01-0.08 IMMATURE GRANULOCYTES-RELATIVE PERCENT (BEAKER) (test zuuq=9757) 1 % 0-1 TROPONIN [id number] 20:40:00* Test Item Value Reference Range Comments TROPONIN I (BEAKER) (test tvjn=336) < ng/mL 0.00-0.03 Troponin I (TnI) levels must be interpreted in the context of the presenting sym ptoms and the clinical findings. Elevated TnI levels indicate myocardial damage, but are not specific for ischemic heart disease. Elevated TnI levels are seen in patients with other cardiac conditions (including myocarditis and congestive h eart failure), and slight TnI elevations occur in patients with other conditions , including sepsis, renal failure, acidosis, acute neurological disease, and per sistent tachyarrhythmia.RAPID DRUG SCREEN, [id number] 16:33:00* Test Item Value Reference Range Comments BARBITURATE URINE (BEAKER) (test pkjz=323) Negative Negative BENZODIAZEPINE SCREEN URINE (BEAKER) (test lbao=380) Negative Negative COCAINE (METAB.) SCREEN (BEAKER) (test liax=8520) Negative Negative METHADONE SCREEN (BEAKER) (test eqga=6504) Negative Negative OPIATE SCREEN URINE (BEAKER) (test fgtd=818) Positive Negative CANNABINOID SCREEN URINE (BEAKER) (test vaud=040) Positive Negative AMPH/METHAMPH SCREEN (BEAKER) (test utdw=0962) Negative Negative PHENCYCLIDINE SCREEN URINE (BEAKER) (test jtkl=918) Negative Negative OXYCODONE SCREEN URINE (BEAKER) (test jcia=5975) Negative Negative DRUG CUTOFF CONC.Cocaine 300 ng/mL Cannabinoid 50 ng/mL Benzodiazepine 200 ng/mLBarbiturate 200 ng/mLPh encyclidine 25 ng/mLOpiate 300 ng/mLMethadone 300 ng/mLAmphetamine/ 1000 ng/mL MethamphetamineOxycodone 300 ng/mLThis assay provides an unconfirmed qualitative test result for the cli nical management of patients in emergency situations. Chain of custody not maint ained. Some lxuv-otk-jpfqxip medications, as well as adulterants, may cause inac curate results. Clinical correlation should be applied. A more comprehensive asha g screen or confirmation of a detected drug may be performed upon request. URINALYSIS W/ [id number] 16:13:00* Test Item Value Reference Range Comments COLOR (BEAKER) (test kkbm=405) Yellow CLARITY (BEAKER) (test gpll=347) Clear SPECIFIC GRAVITY UA (BEAKER) (test exjl=630) 1.014 1.001-1.035 PH UA (BEAKER) (test dnyq=365) 7.0 5.0-8.0 PROTEIN UA (BEAKER) (test cyym=749) Negative Negative GLUCOSE UA (BEAKER) (test sfsq=469) Negative Negative KETONES UA (BEAKER) (test hpvx=849) Negative Negative BILIRUBIN UA (BEAKER) (test qnxo=783) Negative Negative BLOOD UA (BEAKER) (test svnz=882) Negative Negative NITRITE UA (BEAKER) (test jujv=522) Negative Negative LEUKOCYTE ESTERASE UA (BEAKER) (test epui=898) Moderate Negative UROBILINOGEN UA (BEAKER) (test ftpx=000) 0.2 mg/dL 0.2-1.0 RBC UA (BEAKER) (test ijlo=928) < /HPF WBC UA (BEAKER) (test unla=341) 23 /HPF SQUAMOUS EPITHELIAL (BEAKER) (test motr=059) < /HPF SOURCE(BEAKER) (test bkgi=9482) Urine, Clean Catch CREATINE KINASE (CK), TOTAL AND [id number] 14:24:00* Test Item Value Reference Range Comments CREATINE KINASE TOTAL (BEAKER) (test gpcg=756) 233 U/L 29-200 CREATINE KINASE-MB (BEAKER) (test ixgz=357) 1.9 ng/mL 0.0-6.6 CREATINE KINASE-MB INDEX (BEAKER) (test cwli=041) 0.8 % CK-MB Reference Range:<6.7 Normal6.7-10.0 Borderline>10.0 Abnormal TROPONIN [id number] 14:24:00* Test Item Value Reference Range Comments TROPONIN I (BEAKER) (test zmnl=999) < ng/mL 0.00-0.03 Troponin I (TnI) levels must be interpreted in the context of the presenting sym ptoms and the clinical findings. Elevated TnI levels indicate myocardial damage, but are not specific for ischemic heart disease. Elevated TnI levels are seen in patients with other cardiac conditions (including myocarditis and congestive h eart failure), and slight TnI elevations occur in patients with other conditions , including sepsis, renal failure, acidosis, acute neurological disease, and per sistent tachyarrhythmia.BASIC METABOLIC [id number] 14:17:00* Test Item Value Reference Range Comments SODIUM (BEAKER) (test bvdw=013) 139 meq/L 136-145 POTASSIUM (BEAKER) (test ifqu=312) 4.4 meq/L 3.5-5.1 Specimen moderately hemolyzed CHLORIDE (BEAKER) (test ylja=276) 109 meq/L 98-107 CO2 (BEAKER) (test vgcv=363) 22 meq/L 22-29 BLOOD UREA NITROGEN (BEAKER) (test joai=661) 8 mg/dL 7-21 CREATININE (BEAKER) (test cpxa=523) 0.99 mg/dL 0.57-1.25 Specimen moderately hemolyzed GLUCOSE RANDOM (BEAKER) (test ktnq=799) 91 mg/dL 70-105 CALCIUM (BEAKER) (test sqwf=223) 9.2 mg/dL 8.4-10.2 EGFR (BEAKER) (test gvol=8675) 80 mL/min/1.73 sq m ESTIMATED GFR IS NOT ACCURATE CREATININE CLEARANCE IN PREDICTING GLOMERULAR FILTRATION RATE. ESTIMATED GFR IS NOT APPLICABLE FOR DIALYSIS PATIENTS. [id number] 14:07:00* Test Item Value Reference Range Comments D-DIMER QUANTITATIVE (BEAKER) (test aqjr=573) 0.43 MG/L FEU <0.50 Intended Use: The D-Dimer Assay can be used to aid in the diagnosis of Deep Vein Thrombosis (DVT) and Pulmonary Embolism Disease (PED).In patients with low pre- test probability, various studies concerning STA Liatest D-dimer test have repor irwin that with a cutoff value of 0.50 MG/L FEU, the Negative Predictive Value (WHISKEY FILTERER V) regarding the exclusion of thrombosis is within 95-100% range.PROTHROMBIN TIME/[id number] 14:04:00* Test Item Value Reference Range Comments PROTIME (BEAKER) (test ozhs=434) 13.9 seconds 11.7-14.7 INR (BEAKER) (test bjrx=470) 1.1 <=5.9 RECOMMENDED COUMADIN/WARFARIN INR THERAPY RANGESSTANDARD DOSE: 2.0 - 3.0 Inclu mateus: PROPHYLAXIS for venous thrombosis, systemic embolization; TREATMENT for tavares ous thrombosis and/or pulmonary embolus.HIGH RISK: Target INR is 2.5-3.5 for pat ients with mechanical heart valves.CBC W/PLT COUNT & AUTO [id number] 13:57:00* Test Item Value Reference Range Comments WHITE BLOOD CELL COUNT (BEAKER) (test pvux=383) 3.8 K/ L 3.5-10.5 RED BLOOD CELL COUNT (BEAKER) (test eqyk=017) 4.79 M/ L 4.63-6.08 HEMOGLOBIN (BEAKER) (test wrfi=763) 15.8 GM/DL 13.7-17.5 HEMATOCRIT (BEAKER) (test ieuq=414) 45.2 % 40.1-51.0 MEAN CORPUSCULAR VOLUME (BEAKER) (test tyff=868) 94.4 fL 79.0-92.2 MEAN CORPUSCULAR HEMOGLOBIN (BEAKER) (test ohwi=705) 33.0 pg 25.7-32.2 MEAN CORPUSCULAR HEMOGLOBIN CONC (BEAKER) (test ocnv=788) 35.0 GM/DL 32.3-36.5 RED CELL DISTRIBUTION WIDTH (BEAKER) (test qdvt=531) 13.0 % 11.6-14.4 PLATELET COUNT (BEAKER) (test nfxj=706) 159 K/CU MM 150-450 MEAN PLATELET VOLUME (BEAKER) (test rurv=510) 10.0 fL 9.4-12.4 NUCLEATED RED BLOOD CELLS (BEAKER) (test fpom=030) 0 /100 WBC 0-0 NEUTROPHILS RELATIVE PERCENT (BEAKER) (test rpqj=345) 65 % LYMPHOCYTES RELATIVE PERCENT (BEAKER) (test ldgo=608) 24 % MONOCYTES RELATIVE PERCENT (BEAKER) (test bicr=195) 9 % EOSINOPHILS RELATIVE PERCENT (BEAKER) (test xhgt=300) 2 % BASOPHILS RELATIVE PERCENT (BEAKER) (test uytu=415) 0 % NEUTROPHILS ABSOLUTE COUNT (BEAKER) (test zglz=099) 2.50 K/ L 1.78-5.38 LYMPHOCYTES ABSOLUTE COUNT (BEAKER) (test syjc=764) 0.90 K/ L 1.32-3.57 MONOCYTES ABSOLUTE COUNT (BEAKER) (test pwhh=397) 0.33 K/ L 0.30-0.82 EOSINOPHILS ABSOLUTE COUNT (BEAKER) (test pplc=911) 0.07 K/ L 0.04-0.54 BASOPHILS ABSOLUTE COUNT (BEAKER) (test gogr=350) 0.01 K/ L 0.01-0.08 IMMATURE GRANULOCYTES-RELATIVE PERCENT (BEAKER) (test yjzn=9132) 0 % 0-1 RAD, CHEST, 1 VIEW, NON [id number] 13:41:00Reason for exam:->CHEST PAINShould this be performed at the bedside?->YesFINAL REPORT INDICATION: CHEST PAIN TECHNIQUE: Chest radiograph, single view, portable technique. FINDINGS / IMPRESSION: There is no evidence of pneumonia or pulmonary edema. Heart shadow is normal in size. Cardiac monitoring device again noted. No pleural effusion or pneumothorax demonstrated. Osseous structures unremarkable. Signed: Byron Spicer MDReport Verified Date/Time: 04/05/2018 13:41:11 Reading Location: [facility] Diagnostic Imaging Reading Room - [place] [address] Troponin [id number] 18:38:00* Test Item Value Reference Range Comments Troponin T (test code=PAMELA) <0.010 ng/mL 0.000-0.090 CK [id number] 18:38:00* Test Item Value Reference Range Comments CK (test code=CK) 243 U/L 39-308 CKMB (test code=CKMB) 2.6 ng/mL 0.0-4.9 CKMB% (test code=CKMBP) 1.1 % 0.0-3.4 [id number] 18:38:00* Test Item Value Reference Range Comments Lipase (test code=LIP) 31 U/L 13-60 CK [id number] 18:38:00* Test Item Value Reference Range Comments CK (test code=CK) 243 U/L 39-308 Comprehensive Metabolic [id number] 18:38:00* Test Item Value Reference Range Comments Sodium (test code=NA) 138 mmol/L 135-145 Potassium (test code=K) 5.0 mmol/L 3.5-5.1 HEMOLYZED Chloride (test code=CL) 102 mmol/L 98-105 Carbon Dioxide (test code=CO2) 22 mmol/L 22-29 Glucose (test code=GLU) 93 mg/dL 70-115 Blood Urea Nitrogen (test code=BUN) 12 mg/dL 6-20 Creatinine (test code=CREAT) 1.1 mg/dL 0.7-1.2 Calcium (test code=CA) 8.9 mg/dL 8.3-10.5 Prot Total (test code=TP) 6.8 g/dL 6.4-8.3 Albumin (test code=ALB) 4.2 g/dL 3.5-5.2 A/G Ratio (test code=AGRATIO) 1.6 Ratio Globulin (test code=GLOB) 2.6 2.9-3.1 Bili Total (test code=TBIL) 0.5 mg/dL 0.1-0.9 Alk Phos (test code=APHOS) 50 U/L 40-129 AST (test code=AST) 42 U/L 1-40 HEMOLYZED ALT (test code=ALT) 56 U/L 1-41 BUN/Creatinine Ratio (test code=BCRATIO) 10.9 Anion Gap (test code=AGAP) 14 mmol/L 7-16 Estimated GFR (test code=GFR) >60 mL/min/1.73m2 eGFR (estimated Glomerular Filtration Rate) is an estimated value,calculated from the patient's serum creatinine using the MDRD equation.It is NOT the patient's actual GFR. The eGFR provides a more clinicallyuseful measure of kidney disease than serum creatinine alone.This calculation takes sex and race into account, if the informationis provided. If the race is not provided, and the patient isAfrican-Serbian, multiply by 1.212. If sex is not provided, and thepatient is female, multiply by 0.742. Results for patients <18 years ofage have not been validated by the MDRD study and should be interpretedwith caution.eGFR Result Interpretation:eGFR > or=60 is in the Normal RangeeGFR < 60 may mean kidney diseaseeGFR < 15 may mean kidney failureRanges recommended by the National Kidney Foundat ion,http://nkdep.nih.gov [id number] 18:38:00* Test Item Value Reference Range Comments NT ProBnp (test code=PBNP) 46 pg/mL 0-124 [id number] 18:36:00* Test Item Value Reference Range Comments Amphetamine (test code=AMPH) Negative Negative For diagnostic purposes only, positive results should always be assessedin conjunctionwith the patient's medical history,clinical examination and otherfindings.To fulfill legal requirements, a more specific alternate chemical methodmust be used inorder to obtain a Confirmed analytical result. GC/MS is the preferred confirmatory method. Barbiturates (test code=SUJATA) Negative Negative Benzodiazepine (test code=TEVIN) Negative Negative Cocaine (test code=COCA) Negative Negative Methadone (test code=MTHD) Negative Negative Opiates (test code=OPIA) Negative Negative PCP (test code=PCP) Negative Negative Propoxyphene (test code=PROPOX) Negative Negative THC (test code=THC) POSITIVE Negative D-Dimer, [id number] 18:24:00* Test Item Value Reference Range Comments D-Dimer, Quant (test code=DDQNT) 528 ng/mL 0-500 Prothrombin [id number] 18:24:00* Test Item Value Reference Range Comments PT (test code=PT) 11.80 seconds 9.78-13.35 INR (test code=INR) 1.04 Ratio 0.6-1.2 Partial Thromboplastin [id number] 18:24:00* Test Item Value Reference Range Comments aPTT (test code=PTT) 31.20 seconds 24.39-37.25 CBC with [id number] 18:12:00* Test Item Value Reference Range Comments WBC (test code=WBC) 6.0 K/cumm 4.4-10.5 RBC (test code=RBC) 4.93 M/cumm 4.10-5.70 Hemoglobin (test code=HGB) 15.7 gm/dL 13.4-17.4 Hematocrit (test code=HCT) 43.1 % 38.7-52.0 MCV (test code=MCV) 87.4 fL 80-100 MCH (test code=MCH) 31.8 pg 27.0-32.5 MCHC (test code=MCHC) 36.4 g/dL 32.0-37.5 RDW (test code=RDW) 13.9 % 11.5-14.5 Platelet Count (test code=PLTCT) 192 K/cumm 140-440 MPV (test code=MPV) 10.0 fL Diff Method (test code=DIFFM) Auto Neutrophil (test code=NEUT) 70.6 % 36-70 Lymphocyte (test code=LYMPH) 21.9 % 12-44 Monocyte (test code=MONO) 5.2 % 0-11 Eosinophil (test code=EOS) 2.1 % 0-7 Basophil (test code=BASO) 0.3 % 0-2 Neutro Abs (test code=ANEUT) 4.2 K/cumm 1.6-7.4 Lymph Abs (test code=ALYMPH) 1.3 K/cumm 0.5-4.6 [place] Abs (test code=AMONO) 0.3 K/cumm 0.0-1.2 Eos Abs (test code=AEOS) 0.12 K/cumm 0.00-0.74 Baso Abs (test code=ABASO) 0.0 K/cumm 0.00-0.21 XR CHEST 2V, [id number] 17:02:00PA AND LATERAL CHEST:CLINICAL INFORMATION: Chest pain COMPARISONS: December 22, 2013FINDINGS: Lines and tubes: NoneLungs and pleura: The lung volumes are decreased. Subsegmentalatelectasis is noted in the lung bases. No pneumothorax or pleuraleffusion is seen.Heart and mediastinum: The cardiac silhouette appears mildly enlarged. This is accentuated by the shallow inspiration. An electronic device,likely a cardiac loop recorder, projects over the heart.Bones and soft tissues: UnremarkableIMPRESSION:1. Shallow inspiration.2. Borderline cardiomegaly.Location: [id number] NATRIURETIC FACTOR (BNP)2017-09-05 05:44:00* Test Item Value Reference Range Comments B-TYPE NATRIURETIC PEPTIDE (BEAKER) (test iaad=359) 19 pg/mL 0-100 CREATINE KINASE (CK), TOTAL AND [id number] 05:35:00* Test Item Value Reference Range Comments CREATINE KINASE TOTAL (BEAKER) (test euur=079) 166 U/L 29-200 CREATINE KINASE-MB (BEAKER) (test wojj=389) 1.5 ng/mL 0.0-6.6 CREATINE KINASE-MB INDEX (BEAKER) (test olxp=676) 0.9 % CK-MB Reference Range:<6.7 Normal6.7-10.0 Borderline>10.0 Abnormal TROPONIN [id number] 05:35:00* Test Item Value Reference Range Comments TROPONIN I (BEAKER) (test uqyg=353) < ng/mL 0.00-0.03 Troponin I (TnI) levels must be interpreted in the context of the presenting sym ptoms and the clinical findings. Elevated TnI levels indicate myocardial damage, but are not specific for ischemic heart disease. Elevated TnI levels are seen in patients with other cardiac conditions (including myocarditis and congestive h eart failure), and slight TnI elevations occur in patients with other conditions , including sepsis, renal failure, acidosis, acute neurological disease, and per sistent tachyarrhythmia.[id number] 05:28:00* Test Item Value Reference Range Comments MAGNESIUM (BEAKER) (test npmj=406) 2.0 mg/dL 1.6-2.6 Specimen slightly hemolyzed BASIC METABOLIC [id number] 05:28:00* Test Item Value Reference Range Comments SODIUM (BEAKER) (test zxqk=294) 138 meq/L 136-145 POTASSIUM (BEAKER) (test hkwr=472) 4.8 meq/L 3.5-5.1 Specimen slightly hemolyzed CHLORIDE (BEAKER) (test kjsc=254) 108 meq/L 98-107 CO2 (BEAKER) (test qcyd=956) 16 meq/L 22-29 BLOOD UREA NITROGEN (BEAKER) (test vynf=656) 17 mg/dL 7-21 CREATININE (BEAKER) (test gjbx=242) 1.15 mg/dL 0.57-1.25 Specimen slightly hemolyzed GLUCOSE RANDOM (BEAKER) (test ilqp=515) 98 mg/dL 70-105 CALCIUM (BEAKER) (test yqsl=829) 9.6 mg/dL 8.4-10.2 EGFR (BEAKER) (test khkt=7609) 68 mL/min/1.73 sq m ESTIMATED GFR IS NOT ACCURATE CREATININE CLEARANCE IN PREDICTING GLOMERULAR FILTRATION RATE. ESTIMATED GFR IS NOT APPLICABLE FOR DIALYSIS PATIENTS. PT/[id number] 05:17:00* Test Item Value Reference Range Comments PROTIME (BEAKER) (test gcet=026) 14.3 seconds 11.7-14.7 INR (BEAKER) (test maod=150) 1.1 <=5.9 PARTIAL THROMBOPLASTIN TIME (BEAKER) (test bpmg=308) 24.9 seconds 22.5-36.0 RECOMMENDED COUMADIN/WARFARIN INR THERAPY RANGESSTANDARD DOSE: 2.0 - 3.0 Inclu mateus: PROPHYLAXIS for venous thrombosis, systemic embolization; TREATMENT for tavares ous thrombosis and/or pulmonary embolus.HIGH RISK: Target INR is 2.5-3.5 for pat ients with mechanical heart valves.CBC W/PLT COUNT & AUTO [id number] 04:54:00* Test Item Value Reference Range Comments WHITE BLOOD CELL COUNT (BEAKER) (test fwsf=463) 8.3 K/ L 3.5-10.5 RED BLOOD CELL COUNT (BEAKER) (test fczr=623) 5.07 M/ L 4.63-6.08 HEMOGLOBIN (BEAKER) (test paua=399) 16.3 GM/DL 13.7-17.5 HEMATOCRIT (BEAKER) (test lvuu=368) 49.2 % 40.1-51.0 MEAN CORPUSCULAR VOLUME (BEAKER) (test vwnm=705) 97.0 fL 79.0-92.2 MEAN CORPUSCULAR HEMOGLOBIN (BEAKER) (test etoc=190) 32.1 pg 25.7-32.2 MEAN CORPUSCULAR HEMOGLOBIN CONC (BEAKER) (test hytq=950) 33.1 GM/DL 32.3-36.5 RED CELL DISTRIBUTION WIDTH (BEAKER) (test pkpf=704) 13.2 % 11.6-14.4 PLATELET COUNT (BEAKER) (test juep=099) 163 K/CU MM 150-450 MEAN PLATELET VOLUME (BEAKER) (test bnrr=713) 11.1 fL 9.4-12.4 NUCLEATED RED BLOOD CELLS (BEAKER) (test uuwk=000) 0 /100 WBC 0-0 NEUTROPHILS RELATIVE PERCENT (BEAKER) (test atgv=934) 83 % LYMPHOCYTES RELATIVE PERCENT (BEAKER) (test hbpn=720) 12 % MONOCYTES RELATIVE PERCENT (BEAKER) (test tabb=014) 5 % EOSINOPHILS RELATIVE PERCENT (BEAKER) (test eahb=858) 0 % BASOPHILS RELATIVE PERCENT (BEAKER) (test ogsk=215) 0 % NEUTROPHILS ABSOLUTE COUNT (BEAKER) (test luhs=821) 6.86 K/ L 1.78-5.38 LYMPHOCYTES ABSOLUTE COUNT (BEAKER) (test wjqo=227) 0.98 K/ L 1.32-3.57 MONOCYTES ABSOLUTE COUNT (BEAKER) (test zarq=021) 0.41 K/ L 0.30-0.82 EOSINOPHILS ABSOLUTE COUNT (BEAKER) (test jrim=892) 0.01 K/ L 0.04-0.54 BASOPHILS ABSOLUTE COUNT (BEAKER) (test altm=892) 0.01 K/ L 0.01-0.08 IMMATURE GRANULOCYTES-RELATIVE PERCENT (BEAKER) (test umqy=6480) 0 % 0-1 RAD, CHEST, 1 VIEW, NON [id number] 03:44:00Reason for exam:->CHEST PAINFINAL REPORT INDICATION: CHEST PAIN COMPARISON: June 18, 2014 TECHNIQUE: Single frontal view of the chest. FINDINGS: Lungs and pleura: Basilar subsegmental atelectasis. No focal consolidation. No effusion.Heart and mediastinum: Normal heart size. Unremarkable mediastinal contours.Osseous struc tures: No acute abnormality.Other: Leadless cardiac recording device overlies th e left cardiac shadow. IMPRESSION: No focal consolidation. Signed: JR Galaviz Robert MDReport Verified Date/Time: 09/05/2017 03:44:46 Reading Location: [address] Reading Room
--- OUTSIDE RECORDS SUMMARY | 2018-09-08 11:28 | XMS REPORT ---
Author Author Admin, [place] Organization [facility] Address [address] [place] [address] Phone Allergies, Adverse Reactions, Alerts Allergy Name Reaction Description Start Date Severity Status Provider ZOFRAN Critical Active Polina Allen MD IODINE Critical Active Polina Allen MD TEGRETOL Critical Active Polina Allen MD DILANTIN Critical Active Polina Allen MD Conditions or Problems Problem Name Problem Code Onset Date Status Entry Date Provider Comment Standard Description Annotate [place] 327.23 Active Polina Allen MD Obstructive sleep apnea (adult) (pediatric) Passive smoke exposure Active Feliciano Cesar MD [...] Coronary atherosclerosis of unspecified type of vessel, [place] or graft GERD 530.81 Active Polina Allen [...] MD Other convulsions Smoker 305.1 Active Polina Allen MD Tobacco use disorder Substance abuse 305.90 Active Polina Allen MD Other, mixed, or unspecified drug abuse, unspecified use Medication List Medication Instructions Start Date Stop Date Generic Name NDC Status Provider Patient Instruction [facility] NICOTINE 21 MG/24HR TRANSDERMAL PATCH 24 HOUR One patch per day for 6 weeks NICOTINE 16792626483 Active Nora Lyon MD R2 Active AMLODIPINE BESYLATE 5 MG ORAL TABLET 1 tab by mouth daily AMLODIPINE BESYLATE 73542878044 Active Polina Allen MD Active COUMADIN 5 MG ORAL TABLET Take 2 pills (10 mg) MWF and 1.5 pills SuTRSat WARFARIN SODIUM 86238871358 Active Nora Lyon MD R2 Active LISINOPRIL 10 MG ORAL TABLET 1 by mouth every day LISINOPRIL 29279977231 Active Nora Lyon MD R2 Active PROMETHAZINE HCL 25 MG ORAL TABLET Take 1 tablet By Mouth every 6 hours As Needed nausea or vomiting PROMETHAZINE HCL 17701471055 Active Polina Allen MD Active ATROVENT HFA 17 MCG/ACT INHALATION AEROSOL SOLUTION 2 inhalations twice a day IPRATROPIUM BROMIDE HFA 00951555928 Active Nora Lyon MD R2 Active PROAIR HFA 108 (90 BASE) MCG/ACT INHALATION AEROSOL SOLUTION 1-2 puffs every 6 hours as needed ALBUTEROL SULFATE 23956654803 Active Nora Lyon MD R2 Active QVAR REDIHALER 80 MCG/ACT INHALATION AEROSOL BREATH ACTIVATED 1 inhalation twice a day BECLOMETHASONE DIPROP HFA 47922296706 Active Nora Lyon MD R2 Active ASPIRIN 81 MG ORAL TABLET DELAYED RELEASE 1 by mouth every day ASPIRIN 35031824958 Active Nora Lyon MD (res) Active BENADRYL 25 MG ORAL CAPSULE 1 by mouth 2 times a day As Needed for allergies DIPHENHYDRAMINE HCL 88343127892 Active Polina Allen MD Active DEPAKOTE 500 MG ORAL TABLET DELAYED RELEASE take 1000 mg By Mouth BID DIVALPROEX SODIUM 25636799300 Active Nora Lyon MD (res) Active FUROSEMIDE 40 MG ORAL TABLET Take one tablet a day. FUROSEMIDE 59775192234 Active Nora Lyon MD R2 Active ISOSORBIDE MONONITRATE ER 30 MG ORAL TABLET EXTENDED RELEASE 24 HOUR Take 1 tablet By Mouth Qd ISOSORBIDE MONONITRATE 71122406351 Active Nora Lyon MD (res) Active K-TAB 10 MEQ ORAL TABLET EXTENDED RELEASE Take 1 tablet By Mouth Qd POTASSIUM CHLORIDE 07415979747 Active Nora Lyon MD (res) Active KEPPRA 1000 MG ORAL TABLET Take 1 tablet by mouth BID LEVETIRACETAM 83337797955 Active Nora Lyon MD (res) Active METOPROLOL TARTRATE 100 MG ORAL TABLET Take one tablet twice a day. METOPROLOL TARTRATE 27299001247 Active Nora Lyon MD (res) Active PRILOSEC 20 MG ORAL CAPSULE DELAYED RELEASE Take 1 tablet By Mouth Qd OMEPRAZOLE 84973164399 Active Nora Lyon MD (res) Active TERAZOSIN HCL 2 MG ORAL CAPSULE Take 2 mg By Mouth QPM TERAZOSIN HCL 50708721674 Active Nora Lyon MD (res) Active AMLODIPINE BESYLATE 5 MG ORAL TABLET 1 tab by mouth daily AMLODIPINE BESYLATE 5 MG ORAL TABLET 173446 AMLODIPINE BESYLATE Inactive ASPIRIN 81 MG ORAL TABLET DELAYED RELEASE 1 by mouth every day ASPIRIN 81 MG ORAL TABLET DELAYED RELEASE 587049 ASPIRIN Inactive DEPAKOTE 500 MG ORAL TABLET DELAYED RELEASE Take 2 tablets twice a day DEPAKOTE 500 MG ORAL TABLET DELAYED RELEASE 2788336 DIVALPROEX SODIUM Inactive DIPHENHYDRAMINE HCL 25 MG ORAL CAPSULE 1 by mouth twice a day DIPHENHYDRAMINE HCL 25 MG ORAL CAPSULE 6228879 DIPHENHYDRAMINE HCL Inactive ISOSORBIDE MONONITRATE ER 30 MG ORAL TABLET EXTENDED RELEASE 24 HOUR Take one tablet once a day. ISOSORBIDE MONONITRATE ER 30 MG ORAL TABLET EXTENDED RELEASE 24 HOUR ISOSORBIDE MONONITRATE Inactive KEPPRA 1000 MG ORAL TABLET Take 1 tablet by mouth twice a day KEPPRA 1000 MG ORAL TABLET 459896 LEVETIRACETAM Inactive LISINOPRIL 5 MG ORAL TABLET Take one tablet a day. LISINOPRIL 5 MG ORAL TABLET 746170 LISINOPRIL Inactive OMEPRAZOLE 20 MG ORAL CAPSULE DELAYED RELEASE 1 by mouth every day OMEPRAZOLE 20 MG ORAL CAPSULE DELAYED RELEASE 003351 OMEPRAZOLE Inactive POTASSIUM CHLORIDE ER 10 MEQ ORAL TABLET EXTENDED RELEASE Take 1 tablet by mouth daily POTASSIUM CHLORIDE ER 10 MEQ ORAL TABLET EXTENDED RELEASE POTASSIUM CHLORIDE Inactive TERAZOSIN HCL 2 MG ORAL CAPSULE Take 1 tablet by mouth nightly TERAZOSIN HCL 2 MG ORAL CAPSULE 300795 TERAZOSIN HCL Inactive WARFARIN SODIUM 7.5 MG ORAL TABLET Take one tablet a day. WARFARIN SODIUM 7.5 MG ORAL TABLET 184106 WARFARIN SODIUM Inactive AMLODIPINE BESYLATE 5 MG ORAL TABLET 1 tab by mouth daily AMLODIPINE BESYLATE 22116168550 No Longer Active Polina Allen MD Active ASPIRIN 81 MG ORAL TABLET DELAYED RELEASE 1 by mouth every day ASPIRIN 60286230003 No Longer Active Polina Allen MD Active DEPAKOTE 500 MG ORAL TABLET DELAYED RELEASE Take 2 tablets twice a day DIVALPROEX SODIUM 11106877078 No Longer Active Polina Allen MD Active DIPHENHYDRAMINE HCL 25 MG ORAL CAPSULE 1 by mouth twice a day DIPHENHYDRAMINE HCL 55241762717 No Longer Active Polina Allen MD Active ISOSORBIDE MONONITRATE ER 30 MG ORAL TABLET EXTENDED RELEASE 24 HOUR Take one tablet once a day. ISOSORBIDE MONONITRATE 94491105710 No Longer Active Polina Allen MD Active KEPPRA 1000 MG ORAL TABLET Take 1 tablet by mouth twice a day LEVETIRACETAM 38486969373 No Longer Active Polina Allen MD Active LISINOPRIL 5 MG ORAL TABLET Take one tablet a day. LISINOPRIL 47786677565 No Longer Active Polina Allen MD Active OMEPRAZOLE 20 MG ORAL CAPSULE DELAYED RELEASE 1 by mouth every day OMEPRAZOLE 35473647417 No Longer Active Polina Allen MD Active POTASSIUM CHLORIDE ER 10 MEQ ORAL TABLET EXTENDED RELEASE Take 1 tablet by mouth daily POTASSIUM CHLORIDE 92475119796 No Longer Active Polina Allen MD Active TERAZOSIN HCL 2 MG ORAL CAPSULE Take 1 tablet by mouth nightly TERAZOSIN HCL 79099049169 No Longer Active Polina Allen MD Active WARFARIN SODIUM 7.5 MG ORAL TABLET Take one tablet a day. WARFARIN SODIUM 84140420587 No Longer Active Polina Allen MD Active Vital Signs Date Name Value Unit Range Description blood pressure, diastolic, second observation 91 mm[Hg] BP [place] blood pressure, diastolic - 8462-4 91 mm[Hg] BP [place] blood pressure, systolic, second observation 143 mm[Hg] BP sys blood pressure, systolic - 8480-6 143 mm[Hg] BP sys height E&M - 8302-2 71 [in_us] Bdy height pulse rate E&M - 8867-4 115 /min Heart rate respiratory rate E&M - 9279-1 26 /min Resp rate temperature E&M 99.4 [degF] Body temperature weight E&M - 3141-9 277.60 [lb_av] Weight Measured blood pressure, diastolic, second observation 100 mm[Hg] BP [place] blood pressure, diastolic - 8462-4 100 mm[Hg] BP [place] blood pressure, systolic, second observation 152 mm[Hg] BP sys blood pressure, systolic - 8480-6 152 mm[Hg] BP sys height E&M - 8302-2 71 [in_us] Bdy height pulse rate E&M - 8867-4 105 /min Heart rate pulse rate #2 105 Heart rate respiratory rate E&M - 9279-1 27 /min Resp rate temperature E&M 99.1 [degF] Body temperature weight E&M - 3141-9 278 [lb_av] Weight Measured blood pressure, diastolic - 8462-4 113 mm[Hg] BP [place] blood pressure, systolic - 8480-6 161 mm[Hg] BP sys height E&M - 8302-2 71 [in_us] Bdy height pulse rate E&M - 8867-4 93 /min Heart rate respiratory rate E&M - 9279-1 17 /min Resp rate temperature E&M 98.0 [degF] Body temperature weight E&M - 3141-9 270 [lb_av] Weight Measured blood pressure, diastolic - 8462-4 90 mm[Hg] BP [place] blood pressure, systolic - 8480-6 140 mm[Hg] BP sys height E&M - 8302-2 71 [in_us] Bdy height pulse rate E&M - 8867-4 112 /min Heart rate respiratory rate E&M - 9279-1 16 /min Resp rate temperature E&M 99.0 [degF] Body temperature weight E&M - 3141-9 271.20 [lb_av] Weight Measured blood pressure, diastolic, second observation 119 mm[Hg] BP [place] blood pressure, diastolic - 8462-4 119 mm[Hg] BP [place] blood pressure, systolic, second observation 164 mm[Hg] BP sys blood pressure, systolic - 8480-6 164 mm[Hg] BP sys height E&M - 8302-2 71 [in_us] Bdy height pulse rate E&M - 8867-4 78 /min Heart rate respiratory rate E&M - 9279-1 20 /min Resp rate temperature E&M 98.0 [degF] Body temperature weight E&M - 3141-9 274.60 [lb_av] Weight Measured blood pressure, diastolic - 8462-4 114 mm[Hg] BP [place] blood pressure, systolic - 8480-6 165 mm[Hg] BP sys height E&M - 8302-2 71 [in_us] Bdy height pulse rate E&M - 8867-4 94 /min Heart rate respiratory rate E&M - 9279-1 20 /min Resp rate temperature E&M 98.2 [degF] Body temperature weight E&M - 3141-9 279 [lb_av] Weight Measured Diagnostic Results Date [...] serum 29 U/L Office Visit: Adult Followup rm 1 - Coagulation international normalized ratio (INR) 1.1 Office Visit: Adult Followup Hospital Discharge - Chemistry creatinine, serum 1.1 mg/dL Encounters Date Encounter Provider Code Facility 15:01:39 [employer] Est Patient Exp Problem - 90253 Nora Lyon MD R2 CPT-13840 [facility] 16:42:14 [employer] Est Patient Exp Problem - 56811 Nora Lyon MD R2 CPT-34265 [facility] 17:51:07 CDT Est Patient Exp Problem - 48446 Nora Lyon MD R2 CPT-34090 [facility] 16:55:16 CDT Est Patient Detailed - 69338 Nora Lyon MD (res) CPT-51316 [facility] 10:10:40 CDT Est Patient Exp Problem - 16956 Nora Lyon MD (res) CPT-19061 [facility] 21:52:38 [employer] New Patient Comprehensive - 10297 Polina Allen MD CPT-73985 [facility] Procedures Code Procedure Name Date Entry Date Standard Description CPT-90988 Prothrombin Time (INR) - In House 13:58:19 [facility] CPT-73446 Prothrombin Time (INR) - In House 16:42:32 [facility]
[2018-09-08] MEDS ORDERED: LABETALOL HCL 5 MG/ML 20ML VIAL IV STA (11:48)
[2018-09-08 12:13] LABS: BASOPHILS % 0.4 % (0.0-1.0); EOSINOPHILS # (AUTO) 0.1 (0.0-0.4); EOSINOPHILS % 1.1 % (0.0-6.0); HEMATOCRIT 46.2 % (38.2-49.6); HEMOGLOBIN 16.8 g/dL (14.0-18.0); LYMPHOCYTES # (AUTO) 1.2 (1.0-3.2); LYMPHOCYTES % 25.6 % (18.0-39.1); MEAN CORPUSCULAR HEMOGLOBIN 33.9 pg (28-32); MEAN CORPUSCULAR HGB CONC 36.4 g/dL (31-35); MEAN CORPUSCULAR VOLUME 93.3 fL (81-99); MONOCYTES # (AUTO) 0.3 (0.2-0.8); MONOCYTES % 6.3 % (4.4-11.3); NEUTROPHILS % 66.2 % (38.7-80.0); PLATELET COUNT 192 x10e3/uL (140-360); RED BLOOD COUNT 4.95 x10e6/uL (4.3-5.7); RED CELL DISTRIBUTION WIDTH 12.9 % (11.7-14.4)
--- NOTE | 2018-09-08 12:22 | NUR ---
patient reported he wanted to sign out and go to his doctors office. 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 informed ER MD and advised against it and if the pt wants to leave he would need to sign the AMA forms. patient informed nurse that he would sign the against medical advice forms and that he was thankful for everything done so far. pt signed AMA forms and departed ED with all personal belongings.
[2018-09-08 12:33] LABS: ALANINE AMINOTRANSFERASE 53 IU/L (0-55); ALBUMIN 4.2 g/dL (3.5-5.0); ALBUMIN/GLOBULIN RATIO 1.8 (0.8-2.0); ALKALINE PHOSPHATASE 52 IU/L (40-150); ANION GAP 14.4 mmol/L (8-16); BLOOD UREA NITROGEN 11 mg/dL (7-26); BUN/CREATININE RATIO 11 (6-25); CALCIUM 9.4 mg/dL (8.4-10.2); CARBON DIOXIDE 23 mmol/L (22-29); CHLORIDE 108 mmol/L (98-107); CHOLESTEROL 193 MD/DL (0-199); CREATININE, SERUM 0.96 mg/dL (0.72-1.25); EST GLOMERULAR FILTRATION RATE > 60 ML/MIN (60-); GLUCOSE 91 mg/dL (74-118); HDL CHOLESTEROL 48 MG/DL (40-60); LDL CHOLESTEROL 120 MG/DL (60-130); POTASSIUM 4.4 mmol/L (3.5-5.1); SODIUM 141 mmol/L (136-145); TRIGLYCERIDES 123 MG/DL (0-149)
== END 2018-09-08 12:35 | disposition left against medical advice (07) ==
LOC: ER 11:22
DX: R07.9 Chest pain, unspecified (principal); I10 Essential (primary) hypertension; I51.9 Heart disease, unspecified; I25.10 Atherosclerotic heart disease of native coronary artery without angina pectoris; E78.5 Hyperlipidemia, unspecified; I25.2 Old myocardial infarction; Z95.5 Presence of coronary angioplasty implant and graft
CPT/HCPCS: 36415; 80053; 80061; 83880; 84484; 85025; 93005; 99283